=== PATIENT | female | born 1950 | race African-American/Black ===

== ENCOUNTER 2016-03-28 11:02 | Day surgery (SDC) | payer MEDICAID ==
[2016-03-28 11:32] LABS: HEMATOCRIT 35.2 % (36.0-47.0); HEMOGLOBIN 11.3 g/dL (12.0-15.5); HGB HCT DIFFERENCE -1.3; MEAN CORPUSCULAR VOLUME 91 fl (80-97); RED BLOOD COUNT 3.89 10^6/uL (3.72-5.28); RED CELL DISTRIBUTION WIDTH 15.1 % (11.5-14.0); WHITE BLOOD COUNT 9.1 10^3/uL (4.0-10.5)
[2016-03-28 11:38] LABS: PARTIAL THROMBOPLASTIN TIME 29.9 SEC (23.5-35.8); PROTHROMBIN TIME 12.9 SEC (11.4-15.4)
[2016-03-28 11:53] LABS: BLOOD UREA NITROGEN 57 mg/dL (7-20); CALCIUM 9.8 mg/dL (8.4-10.2); CARBON DIOXIDE 23 mmol/L (22-30); CHLORIDE 93 mmol/L (98-107); CREATININE RESULT 9.03 mg/dL (0.52-1.25); GLUCOSE 83 mg/dL (75-110); POTASSIUM 4.9 mmol/L (3.6-5.0); SODIUM 137.1 mmol/L (137-145)
[2016-03-28 11:54] LABS: ANION GAP 21 (5-19)
[2016-03-28] MEDS ORDERED: LIDOCAINE 0.5% INJ-PF (5 MG/ML) 50 ML SDV ONE (12:48)
[2016-03-28] MEDS ORDERED: MIDAZOLAM 2 MG/2 ML INJ ONE (12:58)
[2016-03-28] MEDS ORDERED: FENTANYL CITRATE INJ/PF 100 MCG/2 ML AMPUL ONE (12:58)
[2016-03-28] MEDS ORDERED: HEPARIN SOD (PORCINE) 5,000 UNIT/ML 1 ML SYRINGE ONE (12:58)
--- NOTE | 2016-03-28 15:15 | PDOC DISCHARGE SUMMARY ---
Discharge Summary (SDC) - Discharge Final Diagnosis: #1 malfunctioning AV fistula, left brachial to brachial transposed fistula. #2 end-stage renal disease on hemodialysis. #3 hypertension. Date of Surgery: 03/28/16 Discharge Date: 03/28/16 Condition: Fair Forms: ASU Anesthesia D/C Instruction, Discharge POC-Surgical Service Treatment or Instructions: #1 activities within moderation encouraged. #2 follow up in my office by appointment in about 1 week. Call for appointment. #3 the wounds covered clean and dry until office visit. #4 hold off on school/work until evaluation in office. #5 may shower in 48 hours, keep operated area as dry as possible. #6 discharge from ambulatory when ASU criteria met. #7 medications per medication reconciliation sheet. Referrals: JACQUELINE HESTER MD [ACTIVE STAFF] - 04/06/16 10:15 am Respiratory Treatments at Home: Deep Breathing/Coughing Discharge Activity: Activity As Tolerated, Balance Activity w/Rest, No Driving, No Lifting Over 10 Pounds, Slowly Increase Activity, Walk Frequently Home Care Assistance: None Needed Report the Following to Your Physician Immediately: Shortness of Breath, Nausea , Vomiting, Increase in Pain, Fever over 101 Degrees, Unusual Bleeding, Redness , Swelling, Warmth, Increased Soreness, Drainage-Foul Smelling, Large Clots, Numbness, Tingling Sensation
--- NOTE | 2016-03-28 15:22 | Operative Report ---
Operative Report DATE OF SURGERY: 03/28/16 PREOPERATIVE DIAGNOSIS: #1 malfunctioning AV fistula, left brachial to brachial transposed fistula. #2 end-stage renal disease on hemodialysis. #3 hypertension. POSTOPERATIVE DIAGNOSIS: #1 malfunctioning AV fistula, left brachial to brachial transposed fistula. #2 end-stage renal disease on hemodialysis. #3 hypertension. OPERATION: #1 needle access into arteriovenous fistula. #2 angioplasty. #3 angiogram and interpretation. SURGEON: JACQUELINE ASHRAF CULL GRADER: none ANESTHESIA: Moderate Sedation TISSUE REMOVED OR ALTERED: Not applicable. COMPLICATIONS: None. ESTIMATED BLOOD LOSS: 2 mL. INTRAOPERATIVE FINDINGS: Upper well-founded left arm transposed brachial to brachial fistula. Somewhat firm suggestive of cephalad stenosis. The angiographic findings were consistent with a 90% stenosis at 25 cm from the anastomosis and a half a centimeter long. Apart from that the fistula was quite good with no other focal lesions the caliber satisfactory. The anastomosis appears to be fine on retrograde angiogram into the artery. Complete resolution of the stenosis is noted on completion angiogram. PROCEDURE: PROCEDURE: After verifying the procedure and having obtained informed consent, the patient's left arm was prepared with Chlorhexidine and draped out with sterile linen. Local anesthesia infiltrated. Percutaneous access into the fistula ,[ antegrade], obtained about [4 cm] from the arteriovenous anastomosis using a micro puncture needle followed by micro puncture wire and then a micro puncture catheter. Angiogram demonstrated the aforementioned findings. Angioplasty was elected. A 0.035 [place] wire was inserted, and over this, a 6 Syrian short introducer was placed, this was followed by a [7-mm ] angioplasty balloon . Angioplasty was done at the culprit lesion. Inflating up to 14 atmospheres for 1-2 minutes at a time.]. Completion angiogram demonstrated [satisfactory result]. The instrumentation was now withdrawn over moderate pressure for 10 minutes. Dressings applied, procedure concluded. Exposure time: 0.3 Radiation: 12 [place] per centimeter squared Contrast: 25 mL of Isovue-M 300, low osmolality. DICTATING PHYSICIAN: JACQUELINE HESTER M.D. cc: JACQUELINE HESTER M.D. ([id number]) >>
[2016-03-28 15:47] VITALS: BP 119/59
--- NOTE | 2016-03-28 15:47 | EKG REPORT ---
SEVERITY:- NORMAL ECG - SINUS RHYTHM : Confirmed by: Amaya Duff 28-Mar-2016 15:46:28
== END 2016-03-28 15:45 | disposition home or self-care (01) ==
LOC: CCL 11:02
PROVIDERS: ATTEND Surgery
PROC: 057A3DZ Dilation of Left Brachial Vein with Intraluminal Device, Percutaneous Approach (ICD-10-PCS; principal; 2016-03-28)
DX: T82.858A Stenosis of other vascular prosthetic devices, implants and grafts, initial encounter (principal); Y83.2 Surgical operation with anastomosis, bypass or graft as the cause of abnormal reaction of the patient, or of later complication, without mention of misadventure at the time of the procedure; I12.0 Hypertensive chronic kidney disease with stage 5 chronic kidney disease or end stage renal disease; N18.6 End stage renal disease; Z99.2 Dependence on renal dialysis; D64.9 Anemia, unspecified; J45.909 Unspecified asthma, uncomplicated; Z88.0 Allergy status to penicillin; Z88.6 Allergy status to analgesic agent; Z79.899 Other long term (current) drug therapy
CPT/HCPCS: 36415; 85027; 85610; 85730; 80048; 36902; 71010; 93005; 93010; C1752; C1725; Q9967; C1769; J2250; J1644 ×2; J3010; J3490; 36901

== ENCOUNTER 2016-05-09 09:51 | Day surgery (SDC) | payer BC, MEDICARE, MEDICAID ==
[2016-05-09] MEDS ORDERED: MIDAZOLAM 2 MG/2 ML INJ ONE ×2 (10:18→12:26)
[2016-05-09] MEDS ORDERED: FENTANYL CITRATE INJ/PF 100 MCG/2 ML AMPUL ONE ×2 (10:19→12:26)
[2016-05-09] MEDS ORDERED: HEPARIN SOD (PORCINE) 5,000 UNIT/ML 1 ML SYRINGE ONE ×2 (10:19→12:26)
[2016-05-09 10:35] LABS: ABSOLUTE BASOPHILS # (AUTO) 0.1 10^3/uL (0.0-0.2); ABSOLUTE EOSINOPHILS # (AUTO) 0.3 10^3/uL (0.0-0.6); ABSOLUTE LYMPHOCYTES (AUTO) 1.2 10^3/uL (0.5-4.7); ABSOLUTE MONOCYTES (AUTO) 0.5 10^3/uL (0.1-1.4); ABSOLUTE NEUT (AUTO) 4.7 10^3/uL (1.7-8.2); EOSINOPHILS % (AUTO) 4.1 % (0-6); HEMATOCRIT 31.2 % (36.0-47.0); HEMOGLOBIN 10.3 g/dL (12.0-15.5); HGB HCT DIFFERENCE -0.3; LYMPHOCYTES % (AUTO) 17.4 % (13-45); MEAN CORPUSCULAR HEMOGLOBIN 29.7 pg (27.0-33.4); MEAN CORPUSCULAR VOLUME 90 fl (80-97); MONOCYTES % (AUTO) 7.7 % (3-13); RED BLOOD COUNT 3.46 10^6/uL (3.72-5.28); RED CELL DISTRIBUTION WIDTH 15.8 % (11.5-14.0); SEGMENTED NEUTROPHILS % (AUTO) 69.8 % (42-78); WHITE BLOOD COUNT 6.8 10^3/uL (4.0-10.5)
[2016-05-09 10:58] LABS: ANION GAP 15 (5-19); BLOOD UREA NITROGEN 45 mg/dL (7-20); CALCIUM 10.5 mg/dL (8.4-10.2); CARBON DIOXIDE 23 mmol/L (22-30); CHLORIDE 97 mmol/L (98-107); CREATININE RESULT 8.64 mg/dL (0.52-1.25); GLUCOSE 98 mg/dL (75-110); POTASSIUM 5.6 mmol/L (3.6-5.0); SODIUM 135.4 mmol/L (137-145)
[2016-05-09] MEDS ORDERED: LIDOCAINE 0.5% INJ-PF (5 MG/ML) 50 ML SDV ONE (11:38)
--- NOTE | 2016-05-09 14:21 | PDOC DISCHARGE SUMMARY ---
Discharge Summary (SDC) - Discharge Final Diagnosis: #1 malfunctioning arteriovenous fistula. #2 end-stage renal disease on hemodialysis. #3 hypertension. Date of Surgery: 05/09/16 Discharge Date: 05/09/16 Condition: Good Forms: ASU Anesthesia D/C Instruction, Discharge POC-Surgical Service Treatment or Instructions: Call Dr. Ying office tomorrow, and make a followup visit for 1 week from today. Referrals: JACQUELINE YING MD [ACTIVE STAFF] - Respiratory Treatments at Home: Deep Breathing/Coughing Discharge Activity: Activity As Tolerated Home Care Assistance: None Needed Report the Following to Your Physician Immediately: Shortness of Breath, Nausea , Vomiting, Increase in Pain, Fever over 101 Degrees, Unusual Bleeding, Redness , Swelling, Warmth, Numbness, Tingling Sensation
--- NOTE | 2016-05-09 14:26 | Operative Report ---
Operative Report DATE OF SURGERY: 05/09/16 PREOPERATIVE DIAGNOSIS: #1 malfunctioning arteriovenous fistula. #2 end-stage renal disease on hemodialysis. #3 hypertension. POSTOPERATIVE DIAGNOSIS: #1 malfunctioning arteriovenous fistula. #2 end-stage renal disease on hemodialysis. #3 hypertension. OPERATION: #1 needle access into fistula. #2 angioplasty. #3 angiogram and interpretation. SURGEON: JACQUELINE ASHRAF SENIOR UNDERWRITER: none ANESTHESIA: Moderate Sedation TISSUE REMOVED OR ALTERED: Not applicable. COMPLICATIONS: None ESTIMATED BLOOD LOSS: 2 mL. INTRAOPERATIVE FINDINGS: Of a small, well-founded left transposed basilic vein fistula. A tight culprit stenosis noted at 25 cm.. Representing 90% of the adjacent lumen. Another at about 6 cm representing about 70%. Both of these were eliminated by angioplasty. With no [place] 5% residual stenosis. Also Basurto flow of contrast through the system. No other gross abnormalities. PROCEDURE: PROCEDURE: After verifying the procedure and having obtained informed consent, the patient's left arm was prepared with Chlorhexidine and draped out with sterile linen. Local anesthesia infiltrated. Percutaneous access into the fistula ,[ antegrade], obtained about [2 cm] from the arteriovenous anastomosis using a 18-gauge needle A 0.035 [place] wire was inserted, and over this, a 6 Yoruba short introducer was placed, this was followed by a [7-mm ] angioplasty balloon . Angioplasty was serially done from the upper fistula down to the introducer. Inflating up to 18 atmospheres for a minute at a time.]. Completion angiogram demonstrated [satisfactory result]. The instrumentation was now withdrawn over a short piece of catheter and a 5-0 Prolene suture. Dressings applied, procedure concluded. Exposure time: 0.2 minutes Radiation: 11 lacho per centimeter squared Contrast: 25 mm liters of Isovue-M 300, low osmolality. DICTATING PHYSICIAN: JACQUELINE HESTER M.D. cc: JACQUELINE HESTER M.D. ([id number]) >>
[2016-05-09 14:31] VITALS: BP 107/76
--- NOTE | 2016-05-09 14:36 | PDOC H&P ---
General Chief Complaint: The patient is referred in for evaluation and treatment of her arteriovenous fistula which is exhibited excessive pressure. - Current Medications/Allergies Home Medications: Albuterol Sulfate [Proair HFA Inhalation Aerosol 8.5 gm MDI] 1 puff IH Q4 PRN Metoprolol Tartrate 100 mg PO BID 10/21/14 Hydralazine HCl 100 mg PO TID 02/07/15 Clonidine HCl 0.2 mg PO TID 07/30/15 Nifedipine [Procardia XL 30 mg Tablet] 30 mg PO Q12 07/30/15 Fluticasone/Salmeterol [Advair 250-50 Diskus 28 dose] 1 inh IH DAILY 03/28/16 Prednisone 5 mg PO DAILY 03/28/16 Allergies/Adverse Reactions: pseudoephedrine HCl [From Sudafed] Allergy (Intermediate, Verified 10/09/15 09: 21) Tongue Swelling aspirin [Aspirin] Allergy (Verified 10/09/15 09:21) Penicillins Allergy (Verified 10/09/15 09:21) KI Inhibitors [Ki Inhibitors] Adverse Reaction (Intermediate, Verified 09:21) Angioedema Past Medical History Cardiac Medical History: Reports: Hypertension Denies: Congestive Heart Failure, Coronary Artery Disease, Myocardial Infarction Pulmonary Medical History: Reports: Asthma, Bronchitis, Chronic Obstructive Pulmonary Disease (COPD) Denies: Pneumonia, Tuberculosis Neurological Medical History: Denies: Seizures Renal/ Medical History: Reports: End Stage Renal Disease GI Medical History: Denies: Cirrhosis, Gastroesophageal Reflux Disease, Hepatitis, Hiatal Hernia Musculoskeltal Medical History: Reports: Arthritis Psychiatric Medical History: Denies: Bipolar Disorder, Depression Hematology: Reports: Anemia Denies: Sickle Cell Disease, Bleeding Tendencies Past Surgical History Past Surgical History: Reports: Hysterectomy, Other - PermCath insertion. First stage left transposed brachial vein fistula. Denies: Amputation, Mastectomy, Pacemaker Family History Family History: Reviewed & Not Pertinent Parental Family History Reviewed: No Children Family History Reviewed: No Sibling(s) Family History Reviewed.: No Social History Smoking Status: Unknown if Ever Smoked Frequency of Alcohol Use: None Hx Recreational Drug Use: No Drugs: None Hx Prescription Drug Abuse: No Physical Exam Vital Signs: Temp Pulse Resp BP Pulse Ox 97.7 F 67 16 104/49 L 100 05/09/16 13:30 05/09/16 13:45 05/09/16 13:45 05/09/16 13:45 05/09/16 13:45 Intake & Output 05/08/16 05/09/16 05/10/16 06:59 06:59 06:59 Weight 69.4 kg Additional comments: A well-developed well-nourished -[place] female. Normal body habitus. No acute distress. Eyes membranes is pink and moist, sclerae anicteric. Respiratory no shortness of breath. Breath sounds are normal and equal bilaterally. Cardiac: Heart sounds 1 and 2 heard, no murmurs. Upper extremities show normal range of movement and pulsatile to the radials. Normal capillary refill. A transposed basilic to brachial fistula is appreciated. In the left upper extremity. Somewhat firm, suggesting cephalad stenosis. Psychiatric the patient is alert, oriented, judgment, memory, insight normal Impression/Plan Impression: #1 malfunctioning arteriovenous fistula. #2 end-stage renal disease on hemodialysis. #3 hypertension. Plan: Angiogram and possible angioplasty is recommended. The plan is to do function and thus longevity.
== END 2016-05-09 14:45 | disposition home or self-care (01) ==
LOC: CCL 09:51
PROVIDERS: ATTEND Surgery
PROC: 057C3DZ Dilation of Left Basilic Vein with Intraluminal Device, Percutaneous Approach (ICD-10-PCS; principal; 2016-05-09)
DX: T82.858A Stenosis of other vascular prosthetic devices, implants and grafts, initial encounter (principal); Y83.2 Surgical operation with anastomosis, bypass or graft as the cause of abnormal reaction of the patient, or of later complication, without mention of misadventure at the time of the procedure; D63.1 Anemia in chronic kidney disease; I12.0 Hypertensive chronic kidney disease with stage 5 chronic kidney disease or end stage renal disease; N18.6 End stage renal disease; Z99.2 Dependence on renal dialysis; J45.909 Unspecified asthma, uncomplicated; J44.9 Chronic obstructive pulmonary disease, unspecified; Z79.51 Long term (current) use of inhaled steroids; Z79.899 Other long term (current) drug therapy; Z79.82 Long term (current) use of aspirin; Z87.891 Personal history of nicotine dependence
CPT/HCPCS: 36415; 85025; 80048; 36902; C1752; C1725; Q9967; C1769; J2250; J1644 ×2; J3010; J3490

== ENCOUNTER 2016-06-30 14:50 | Day surgery (SDC) | payer BC, MEDICARE, MEDICAID ==
[2016-06-30 15:40] LABS: HEMATOCRIT 33.1 % (36.0-47.0); HEMOGLOBIN 11.2 g/dL (12.0-15.5); HGB HCT DIFFERENCE 0.5; MEAN CORPUSCULAR HEMOGLOBIN 31.5 pg (27.0-33.4); MEAN CORPUSCULAR HGB CONC 33.9 g/dL (32.0-36.0); MEAN CORPUSCULAR VOLUME 93 fl (80-97); RED BLOOD COUNT 3.56 10^6/uL (3.72-5.28); RED CELL DISTRIBUTION WIDTH 15.9 % (11.5-14.0); WHITE BLOOD COUNT 6.4 10^3/uL (4.0-10.5)
[2016-06-30 15:54] LABS: POTASSIUM 4.5 mmol/L (3.6-5.0)
[2016-06-30 15:55] LABS: ANION GAP 15 (5-19); BLOOD UREA NITROGEN 22 mg/dL (7-20); CALCIUM 9.3 mg/dL (8.4-10.2); CARBON DIOXIDE 25 mmol/L (22-30); CHLORIDE 97 mmol/L (98-107); CREATININE RESULT 5.82 mg/dL (0.52-1.25); GLUCOSE 88 mg/dL (75-110); SODIUM 137.1 mmol/L (137-145)
[2016-06-30] MEDS ORDERED: KETAMINE HCL INJ 500 MG/10 ML VIAL ONE (16:27)
[2016-06-30] MEDS ORDERED: FENTANYL CITRATE INJ/PF 100 MCG/2 ML AMPUL ONE (16:27)
[2016-06-30] MEDS ORDERED: MIDAZOLAM 2 MG/2 ML INJ ONE ×2 (16:27→16:28)
[2016-06-30] MEDS ORDERED: PROPOFOL INJ 200 MG/20 ML VIAL IV ONE (16:28)
[2016-06-30] MEDS ORDERED: LIDOCAINE 0.5% INJ-PF (5 MG/ML) 50 ML SDV ONE (16:35)
[2016-06-30] MEDS ORDERED: BUPIVACAINE HCL 0.25 % INJ/PF (2.5 MG/1 ML) 30 ML VIAL ONE (16:35)
[2016-06-30] MEDS ORDERED: HEPARIN SOD (PORCINE) 1,000 UNIT/ML 10 ML VIAL ONE (16:35)
--- NOTE | 2016-06-30 17:53 | PDOC DISCHARGE SUMMARY ---
Discharge Summary (SDC) - Discharge Final Diagnosis: #1 malfunctioning arteriovenous fistula, left transposed basilic vein. #2 end-stage renal disease on hemodialysis. #3 hypertension. Date of Surgery: 06/30/16 Discharge Date: 06/30/16 Condition: Good Treatment or Instructions: #1 activities within moderation encouraged. #2 follow up in my office by appointment in about 1 month. Call for appointment. #3 the wounds covered clean and dry until hemodialysis. #4 hold off on school/work until evaluation in office. #5 may shower in 48 hours,. #6 discharge from ambulatory when ASU criteria met. #7 medications per medication reconciliation sheet. Discharge Diet: Other (Comments) - Renal Respiratory Treatments at Home: Deep Breathing/Coughing Discharge Activity: Activity As Tolerated Report the Following to Your Physician Immediately: Shortness of Breath, Unusual Bleeding
--- NOTE | 2016-06-30 17:56 | Operative Report ---
Operative Report DATE OF SURGERY: 06/30/16 PREOPERATIVE DIAGNOSIS: #1 malfunctioning arteriovenous fistula, left basilic transpose. #2 end-stage renal disease on hemodialysis. #3 hypertension. POSTOPERATIVE DIAGNOSIS: #1 malfunctioning arteriovenous fistula, left basilic transposed. Post angioplasty. #2 end-stage renal disease on hemodialysis. #3 hypertension. OPERATION: #1 needle entry into fistula. #2 balloon angioplasty and fistula. #3 angiogram and interpretation. SURGEON: JACQUELINE ASHRAF FORENSIC PSYCHIATRIST: none ANESTHESIA: LMAC TISSUE REMOVED OR ALTERED: Not applicable COMPLICATIONS: None ESTIMATED BLOOD LOSS: 5 mL. INTRAOPERATIVE FINDINGS: Of a localized area of stenosis about 90% of the adjacent lumen situated at about 22 cm. Fully eradicated. 0% remaining stenosis. The fistula initially hyper pulsatile was much appropriate is softer with a good continuous bruit at the end of the procedure. PROCEDURE: PROCEDURE: After verifying the procedure and having obtained informed consent, the patient's left arm was prepared with Chlorhexidine and draped out with sterile linen. Local anesthesia infiltrated. Percutaneous access into the fistula ,[ antegrade], obtained about [6 cm] from the arteriovenous anastomosis using a micro puncture needle followed by micro puncture wire and then a micro puncture catheter. Angiogram demonstrated the aforementioned findings. Angioplasty was elected. A 0.035 [place] wire was inserted, and over this, a 6 Vincentian short introducer was placed, this was followed by a [7-mm ] angioplasty balloon . Angioplasty was At the culprit area inflating with a 3 mL syringe. Estimated up to up to 18 atmospheres for a minute at a time.]. Completion angiogram demonstrated [satisfactory result]. The instrumentation was now withdrawn over a hand-held pressure for 10 minutes.. Dressings applied , procedure concluded. DICTATING PHYSICIAN: JACQUELINE HESTER M.D. cc: JACQUELINE HESTER M.D. ([id number]) >>
[2016-06-30] MEDS ORDERED: MORPHINE SULFATE 10 MG/ML INJ IV PRN (18:07)
[2016-06-30] MEDS ORDERED: DIPHENHYDRAMINE HCL 50 MG/ML VIAL IV PRN (18:07)
[2016-06-30] MEDS ORDERED: OXYCODONE-ACETAMINOPHEN 5-325 MG TABLET PO PRN ×2 (18:07)
[2016-06-30] MEDS ORDERED: MEPERIDINE HCL/PF INJ 25 MG/1 ML DISP.SYRIN IV PRN (18:07)
[2016-06-30] MEDS ORDERED: FENTANYL CITRATE INJ/PF 100 MCG/2 ML AMPUL IV PRN ×3 (18:07)
[2016-06-30] MEDS ORDERED: PROMETHAZINE HCL INJ 25 MG/1 ML VIAL IV PRN ×2 (18:07)
[2016-06-30 19:28] VITALS: BP 156/79
--- NOTE | 2016-07-01 09:34 | EKG REPORT ---
SEVERITY:- OTHERWISE NORMAL ECG - SINUS RHYTHM ATRIAL PREMATURE COMPLEX : Confirmed by: Amaya Duff 01-Jul-2016 09:33:53
== END 2016-06-30 19:27 | disposition home or self-care (01) ==
LOC: OROUT 14:50
PROVIDERS: ATTEND Surgery
PROC: 057C3DZ Dilation of Left Basilic Vein with Intraluminal Device, Percutaneous Approach (ICD-10-PCS; principal; 2016-06-30 17:00)
DX: T82.858A Stenosis of other vascular prosthetic devices, implants and grafts, initial encounter (principal); Y83.2 Surgical operation with anastomosis, bypass or graft as the cause of abnormal reaction of the patient, or of later complication, without mention of misadventure at the time of the procedure; I12.0 Hypertensive chronic kidney disease with stage 5 chronic kidney disease or end stage renal disease; N18.6 End stage renal disease; Z99.2 Dependence on renal dialysis; J45.909 Unspecified asthma, uncomplicated; D64.9 Anemia, unspecified; Z88.0 Allergy status to penicillin; Z88.6 Allergy status to analgesic agent; Z79.899 Other long term (current) drug therapy
CPT/HCPCS: 36415; 85027; 80048; 73060; 93005; 93010; 36902; C1752; C1725; Q9967; C1769; J2250; J1644 ×2; J3490 ×2; J2704; 01844; J3010

== ENCOUNTER 2016-08-22 07:45 | Day surgery (SDC) | payer BC, MEDICARE, MEDICAID ==
[2016-08-22 08:12] LABS: HEMATOCRIT 32.7 % (36.0-47.0); HEMOGLOBIN 10.7 g/dL (12.0-15.5); HGB HCT DIFFERENCE -0.6; MEAN CORPUSCULAR HEMOGLOBIN 29.3 pg (27.0-33.4); MEAN CORPUSCULAR HGB CONC 32.8 g/dL (32.0-36.0); MEAN CORPUSCULAR VOLUME 89 fl (80-97); RED BLOOD COUNT 3.66 10^6/uL (3.72-5.28); RED CELL DISTRIBUTION WIDTH 13.7 % (11.5-14.0); WHITE BLOOD COUNT 6.5 10^3/uL (4.0-10.5)
[2016-08-22 08:31] LABS: ANION GAP 17 (5-19); BLOOD UREA NITROGEN 49 mg/dL (7-20); CALCIUM 9.8 mg/dL (8.4-10.2); CARBON DIOXIDE 19 mmol/L (22-30); CHLORIDE 93 mmol/L (98-107); CREATININE RESULT 8.27 mg/dL (0.52-1.25); GLUCOSE 93 mg/dL (75-110); POTASSIUM 4.8 mmol/L (3.6-5.0); SODIUM 129.3 mmol/L (137-145)
[2016-08-22] MEDS ORDERED: HEPARIN SOD (PORCINE) 5,000 UNIT/ML 1 ML SYRINGE ONE (09:19)
[2016-08-22] MEDS ORDERED: FENTANYL CITRATE INJ/PF 100 MCG/2 ML AMPUL ONE (09:19)
[2016-08-22] MEDS ORDERED: MIDAZOLAM 2 MG/2 ML INJ ONE (09:19)
--- NOTE | 2016-08-22 09:28 | PDOC H&P ---
General Chief Complaint: Malfunction of arteriovenous detected on hemodialysis, higher than expected pressures. - Diagnosis (1) Dialysis AV fistula malfunction Is this a Current Diagnosis?: Yes (2) End stage renal disease on dialysis Is this a Current Diagnosis?: Yes (3) Hypertension Is this a Current Diagnosis?: Yes - Current Medications/Allergies Home Medications: Albuterol Sulfate [Proair HFA Inhalation Aerosol 8.5 gm MDI] 1 puff IH Q4 PRN Metoprolol Tartrate 100 mg PO BID 10/21/14 Hydralazine HCl 100 mg PO TID 02/07/15 Clonidine HCl 0.2 mg PO TID 07/30/15 Nifedipine [Procardia XL 30 mg Tablet] 30 mg PO Q12 07/30/15 Fluticasone/Salmeterol [Advair 250-50 Diskus 28 dose] 1 inh IH DAILY 03/28/16 Allergies/Adverse Reactions: pseudoephedrine HCl [From Sudafed] Allergy (Intermediate, Verified 10/09/15 09: 21) Tongue Swelling aspirin [Aspirin] Allergy (Verified 10/09/15 09:21) Penicillins Allergy (Verified 10/09/15 09:21) KI Inhibitors [Ki Inhibitors] Adverse Reaction (Intermediate, Verified 09:21) Angioedema Past Medical History Cardiac Medical History: Reports: Hypertension Denies: Congestive Heart Failure, Coronary Artery Disease, Myocardial Infarction Pulmonary Medical History: Reports: Asthma, Bronchitis, Chronic Obstructive Pulmonary Disease (COPD) Denies: Pneumonia, Tuberculosis Neurological Medical History: Denies: Seizures Renal/ Medical History: Reports: End Stage Renal Disease GI Medical History: Denies: Cirrhosis, Gastroesophageal Reflux Disease, Hepatitis, Hiatal Hernia Musculoskeltal Medical History: Reports: Arthritis Psychiatric Medical History: Denies: Bipolar Disorder, Depression Hematology: Reports: Anemia Denies: Sickle Cell Disease, Bleeding Tendencies Past Surgical History Past Surgical History: Reports: Hysterectomy, Other - PermCath insertion. First stage left transposed brachial vein fistula. Denies: Amputation, Mastectomy, Pacemaker Family History Family History: Reviewed & Not Pertinent Parental Family History Reviewed: No Children Family History Reviewed: No Sibling(s) Family History Reviewed.: No Social History Smoking Status: Never Smoker Frequency of Alcohol Use: None Hx Recreational Drug Use: No Drugs: None Hx Prescription Drug Abuse: No Physical Exam Additional comments: Constitutional: Well-developed well-nourished -[place] lady. No apparent acute distress. Eyes: Mucous membranes pink and moist, pupils equal and reactive to light. Conjunctiva normal. Cornea normal. Wears spectacles ENT: Hearing grossly normal. External pinna normal to inspection. Teeth intact. Tongue normal to inspection. Cardiac: Heart sounds 1 and 2 normal, no murmurs. Respiratory breath sounds are present bilaterally, normal. Normal respiratory effort. Psychiatric: Judgment, memory, insight seem normal. Mood is pleasant and appropriate. Extremities: Upper extremities show normal range of movement. Pulses present noted to the radial arteries. Capillary refill normal. No cyanosis noted. No muscle wasting noted. Left arm transposed brachial vein fistula in the arm, firm, suggesting stenosis. . Impression/Plan Impression: #1 malfunctioning arteriovenous fistula left arm. 2. End-stage renal disease on hemodialysis. 3. Hypertension Plan: Angiogram and possibly angioplasty recommended. The object is to prolong the useful function of this kinsey fistula. This patient has very poor veins generally.
[2016-08-22] MEDS ORDERED: LIDOCAINE 0.5% INJ-PF (5 MG/ML) 50 ML SDV ONE (09:32)
--- NOTE | 2016-08-22 11:10 | PDOC DISCHARGE SUMMARY ---
Discharge Summary (SDC) - Discharge Final Diagnosis: #1 malfunctioning arteriovenous fistula, left transposed brachial vein. 2. End-stage renal disease on hemodialysis. 3. Hypertension. Date of Surgery: 08/22/16 Discharge Date: 08/22/16 Condition: Good Treatment or Instructions: Discharge home [after recovery per ASU criteria]. Diet , [renal],as tolerated, when fully awake advance as tolerated. Activities within moderation encouraged. Follow up in my office by appointment in about [1 month]. Call for appointment. Leave wounds [covered], removing in hemodialysis. Hold of on school/work [until evaluation in office]. May shower [in 48 hrs], [try to keep operated area as dry as possible]. Respiratory Treatments at Home: Deep Breathing/Coughing Discharge Activity: Activity As Tolerated Home Care Assistance: None Needed Report the Following to Your Physician Immediately: Shortness of Breath, Increase in Pain, Fever over 101 Degrees, Unusual Bleeding, Redness, Swelling, Warmth, Increased Soreness, IV Site Infection Signs
--- NOTE | 2016-08-22 11:15 | Operative Report ---
Operative Report DATE OF SURGERY: 08/22/16 PREOPERATIVE DIAGNOSIS: #1 malfunctioning arteriovenous fistula, left transposed brachial vein. 2. End-stage renal disease on hemodialysis. 3. Hypertension POSTOPERATIVE DIAGNOSIS: #1 malfunctioning arteriovenous fistula, left transposed brachial vein. Angioplasty. 2. End-stage renal disease on hemodialysis. 3. Hypertension OPERATION: 1. Needle active arteriovenous fistula. 2. Angioplasty. 3. Angiogram interpretation. SURGEON: JACQUELINE ASHRAF RN INTEGRITY: None ANESTHESIA: Moderate Sedation TISSUE REMOVED OR ALTERED: Not applicable. COMPLICATIONS: None ESTIMATED BLOOD LOSS: 5 mL INTRAOPERATIVE FINDINGS: Of a well founded left arm transposed brachial fistula. A very tight stenosis about 90% of the adjacent lumen in about 3 mm long appreciated at 25 cm. The swing segment of the fistula. Cephalad was marked narrowing secondary to low fracture. Additionally was a high pressure hyper pulse pulse in the body of the fistula. Post angioplasty there was resolution of the stenosis wall extravasation. The fistula was appropriately softer. PROCEDURE: PROCEDURE: After verifying the procedure and having obtained informed consent, the patient's left arm was prepared with Chlorhexidine and draped out with sterile linen. Local anesthesia infiltrated. Percutaneous access into the fistula ,[ antegrade], obtained about [4 cm] from the arteriovenous anastomosis using a 18-gauge needle. A 0.035 [place] wire was inserted, and over this, a 7 Malay short introducer was placed, angiogram demonstrated the above. This was followed by a [6-mm] angioplasty balloon . Angioplasty was Done using a 3 mils syringe and hand injection for 2 minutes. Completion angiogram demonstrated much improvement. The stenotic segment seemed very soft. As a result of a 8 mm balloon with no lobe of the culprit lesion. It was inflated using a 3 mils syringe for 2 minutes. A waist was noted which was eliminated. Completion angiogram demonstrated [satisfactory result]. The instrumentation was now withdrawn over to pressure for 10 minutes. Dressings applied, procedure concluded. Exposure time: 2 minutes. Radiation: 8.5 mcg/cm Contrast: 25 mm of Isovue-300, low osmolality. DICTATING PHYSICIAN: JACQUELINE HESTER M.D. cc: JACQUELINE HESTER M.D. ([id number]) >>
--- NOTE | 2016-08-22 11:49 | RADIOLOGY REPORT (SQ) ---
EXAM DESCRIPTION: FISTULAGRAM W/PLASTY COMPLETED DATE/TIME: 08/22/2016 11:18 am REASON FOR STUDY: T82.858A T82.858A STENOSIS OF OTHER VASCULAR PROSTH DEV/GRFT, INIT COMPARISON: None. FLUOROSCOPY TIME: Total fluoroscopy time was 0.8 minutes. 13 images saved to PACS. TECHNIQUE: Intra-operative images acquired during surgical procedure to evaluate progress. NUMBER OF IMAGES: 13 LIMITATIONS: None. FINDINGS: Fluoroscopy was provided for intraoperative procedure. Please refer to the operative repo rt for further discussion. IMPRESSION: IMAGE(S) OBTAINED DURING PROCEDURE. COMMENT: Quality ID [id number]: Final reports for procedures using fluoroscopy that document radiation exp osure indices, or exposure time and number of fluorographic images (if radiation exposure indices are not available) Please consult full operative report of the attending physician for description of the procedure. TECHNICAL DOCUMENTATION: JOB ID: [id number] [employer]- All Rights Reserved
[2016-08-22 13:53] VITALS: BP 159/77
== END 2016-08-22 11:55 | disposition home or self-care (01) ==
LOC: CCL 07:45
PROVIDERS: ATTEND Surgery
PROC: 057A3DZ Dilation of Left Brachial Vein with Intraluminal Device, Percutaneous Approach (ICD-10-PCS; principal; 2016-08-22)
DX: T82.858A Stenosis of other vascular prosthetic devices, implants and grafts, initial encounter (principal); Y83.2 Surgical operation with anastomosis, bypass or graft as the cause of abnormal reaction of the patient, or of later complication, without mention of misadventure at the time of the procedure; I12.0 Hypertensive chronic kidney disease with stage 5 chronic kidney disease or end stage renal disease; N18.6 End stage renal disease; Z99.2 Dependence on renal dialysis; Z79.51 Long term (current) use of inhaled steroids; Z79.899 Other long term (current) drug therapy; Z88.8 Allergy status to other drugs, medicaments and biological substances; Z88.0 Allergy status to penicillin; Z88.6 Allergy status to analgesic agent; J44.9 Chronic obstructive pulmonary disease, unspecified; M19.90 Unspecified osteoarthritis, unspecified site
CPT/HCPCS: 36415; 85027; 80048; 36902; C1725 ×2; C1752; C1894; Q9967; C1769; J2250; J1644 ×2; J3010; J3490

== ENCOUNTER 2017-06-13 08:01 | Day surgery (SDC) | payer MEDICARE, MEDICAID ==
[~2017-06-13 08:01] MED LIST: BUPIVACAINE HCL 0.75% INJ/PF (7.5 MG/1 ML) 10 ML SDV OD PRN; KETOROLAC TROMETHAMINE 0.45% 4 DROP/0.4 ML DROPERETTE OD PRN; LIDOCAINE 4% INJ/PF (40 MG/ML) 5 ML AMPUL OD PRN
[2017-06-13] MEDS ORDERED: EPINEPHRINE INJ/PF 1 MG/1 ML AMPULE ONE (08:22)
[2017-06-13] MEDS ORDERED: CHONDR SU A NA/HYALUR INTRAOC KIT (SURGICARE) ONE (08:22)
[2017-06-13] MEDS ORDERED: LIDOCAINE 1% INJ-PF (10 MG/ML) 30 ML SDV ONE (08:22)
[2017-06-13] MEDS: BESIFLOXACIN HCL 0.6% OPH SUSP 5 ML BOTTLE OD PRN ×3 (08:47→09:38)
[2017-06-13] MEDS: TETRACAINE HCL 0.5% OPH SOLN 0.6 ML DROPERETTE OD PRN ×2 (08:47→09:11)
[2017-06-13] MEDS: TROPICAMIDE 1% OPH SOLN 3 ML OD PRN ×3 (08:47→09:05)
[2017-06-13] MEDS: CYCLOPENTOLATE 0.2%/PHENYLEPHRINE 1% OPH SOLN 2 ML OD PRN ×3 (08:47→09:05)
[2017-06-13] MEDS ORDERED: MIDAZOLAM 2 MG/2 ML INJ ONE (08:59)
--- NOTE | 2017-06-13 09:50 | [facility] DISCHARGE SUMMARY E ---
[facility] Discharge Summary NAME: JUANJOSE DURAN AGE: 67Y ADMITTED: 06/13/2017 DISCHARGED: 06/13/2017 FINAL DIAGNOSIS: Cataract, right eye. HOSPITAL COURSE: The patient is a 67-year-old lady who underwent uneventful cataract extraction with intraocular lens implant, right eye, on 06/13/2017. She will be discharged to home. She was instructed to resume preoperative medications, to take Tylenol as needed for discomfort, to keep her eye shielded, to use Besivance, Durezol and Ilevro at 3 p.m. and 8 p.m., and to follow up in my office in 1 day. DICTATING PHYSICIAN: ROBERT PENA M.D. [id number] PHY#: [id number] ID: [id number] JOB#: [id number] ACCT: [id number] cc:ROBERT PENA M.D. >
--- NOTE | 2017-06-13 09:50 | [facility] OPERATIVE REPORT E ---
[facility] Operative Report NAME: JUANJOSE DURAN AGE: 67Y DATE OF SURGERY: 06/13/2017 ROOM: PREOPERATIVE DIAGNOSIS: Cataract, right eye. POSTOPERATIVE DIAGNOSIS: Cataract, right eye. PROCEDURE PERFORMED: Phacoemulsification with posterior chamber intraocular lens, right eye. SURGEON: ROBERT PENA M.D. ANESTHESIA: Topical with MAC. INDICATIONS FOR SURGERY: Patient is having difficulty driving at night. PROCEDURE: The patient was brought to the Operating Room and placed on the operative table. Following tetracaine drops, topical anesthesia was administered. This consisted of instrument wipe pledgets soaked in a solution of 4% Xylocaine mixed with 0.75% Marcaine in a 1:2 ratio. A 2 x 1 cm pledget was placed in the superior fornix. A 1 x 1 cm pledget was placed in the inferior fornix. The eye was patched shut for 5 minutes. The patch was removed. The eye was sterilely prepped and draped in the usual manner. Lid speculum was placed in the eye. The pledgets were removed and 4-0 black silk sutures were placed around the superior and the inferior rectus muscles to be used as traction. A conjunctival peritomy was made at the 10 o'clock position. Hemostasis was obtained with bipolar cautery. A posterior limbal groove was created using a crescent knife and dissected anteriorly towards the cornea. A sharp point blade was used to create a paracentesis site at the 2 o'clock position. A 2.4 mm keratome was used to enter the anterior chamber through the groove. Viscoelastic was injected into the anterior chamber. An anterior capsulotomy was performed using Utrata forceps in a capsulorrhexis fashion. Hydrodissection and hydrodelineation were performed. Phacoemulsification was performed in [id number]-[id number]-[id number] technique. Total phaco time was 5.10 CDE. Following this, the I/A unit was used to remove residual cortex. Viscoelastic was injected into the capsular bag. Intraocular lens model [id number], 17.5 diopters, serial number [id number], was placed in the capsular bag. The I/A unit was used to remove residual viscoelastic. The wound was seen to be watertight under high and low pressure, and no sutures were placed. The intraocular lens was well centered. The pressure was adjusted in the eye to normal pressure. The 4-0 black silk sutures and lid speculum were removed. The eye was shielded after Besivance drops were placed. The patient tolerated the procedure well and was sent to the Recovery Room in good condition. DICTATING PHYSICIAN: ROBERT PENA M.D. [id number] PHY#: [id number] ID: [id number] JOB#: [id number] ACCT: [id number] cc:ROBERT PENA M.D. >
== END 2017-06-13 10:23 | disposition home or self-care (01) ==
LOC: SC 08:01
PROVIDERS: ATTEND Ophthalmology
PROC: 08RK3JZ Replacement of Left Lens with Synthetic Substitute, Percutaneous Approach (ICD-10-PCS; principal; 2017-06-13 09:30)
DX: H25.811 Combined forms of age-related cataract, right eye (principal); Z96.1 Presence of intraocular lens; I12.9 Hypertensive chronic kidney disease with stage 1 through stage 4 chronic kidney disease, or unspecified chronic kidney disease; N18.9 Chronic kidney disease, unspecified; M10.9 Gout, unspecified; D64.9 Anemia, unspecified; Z87.891 Personal history of nicotine dependence; Z88.0 Allergy status to penicillin; Z88.2 Allergy status to sulfonamides; Z99.2 Dependence on renal dialysis; J44.9 Chronic obstructive pulmonary disease, unspecified; Z79.51 Long term (current) use of inhaled steroids; Z79.82 Long term (current) use of aspirin
CPT/HCPCS: 66984; V2632; J2250; J3490 ×4; A9270; J0171; 142

== ENCOUNTER 2017-11-11 09:07 | Emergency (ER) | payer MEDICARE, MEDICAID ==
--- NOTE | 2017-11-11 09:52 | ER Document Report ---
ED General - General Chief Complaint: Blood Pressure Problem Stated Complaint: BLOOD PRESSURE PROBLEM Time Seen by Provider: 11/11/17 09:27 Mode of Arrival: Ambulatory Information source: Patient, [facility] Records Notes: 67-year-old female with hypertension, COPD, end-stage renal disease on dialysis( Monday, , Monday) presents with concern for elevated blood pressure readings over the last 3 days. Patient states that she has been recently taking a new epmh-dhc-bwleyip medication for back pain and since that time has had elevated blood pressure readings. Patient currently takes nifedipine 30 mg daily for her blood pressure but has not taking her blood pressure medication in 2 days. Patient denies any headache, visual changes, slurred speech, difficulty ambulating, chest pain, shortness of breath. She states repeatedly "I feel fine". Patient reports recent treatment for sinusitis with levofloxacin. She took this for 2 weeks and completed this a few days ago. TRAVEL OUTSIDE OF THE [place] IN LAST 30 DAYS: No - HPI Onset: Other Onset/Duration: Gradual Quality of pain: No pain Severity: None Associated symptoms: denies: Chest pain, Headache, Nausea, Vomiting, Shortness of breath Exacerbated by: Denies Relieved by: Denies Similar symptoms previously: Yes Recently seen / treated by doctor: Yes - Related Data Allergies/Adverse Reactions: pseudoephedrine HCl [From Sudafed] Allergy (Intermediate, Verified 11/11/17 09: 11) Tongue Swelling aspirin [Aspirin] Allergy (Verified 11/11/17 09:11) Penicillins Allergy (Verified 11/11/17 09:11) KI Inhibitors [Ki Inhibitors] Adverse Reaction (Intermediate, Verified 09:11) Angioedema Past Medical History - General Information source: Patient - Social History Smoking Status: Never Smoker Frequency of alcohol use: None Drug Abuse: None Lives with: Family Family History: Reviewed & Not Pertinent Patient has suicidal ideation: No Patient has homicidal ideation: No - Past Medical History Cardiac Medical History: Reports: Hx Hypertension Denies: Hx Congestive Heart Failure, Hx Coronary Artery Disease, Hx Heart Attack Pulmonary Medical History: Reports: Hx Asthma, Hx Bronchitis, Hx COPD Denies: Hx Pneumonia, Hx Tuberculosis Neurological Medical History: Denies: Hx Cerebrovascular Accident, Hx Seizures Renal/ Medical History: Reports: Hx End Stage Renal Disease, Hx Renal Insufficiency. Denies: Hx Kidney Stones, Hx Peritoneal Dialysis - hemo T GI Medical History: Denies: Hx Cirrhosis, Hx Gastroesophageal Reflux Disease, Hx Hepatitis, Hx Hiatal Hernia, Hx Ulcer Musculoskeletal Medical History: Reports Hx Arthritis, Denies Hx Multiple Sclerosis Psychiatric Medical History: Denies: Hx Bipolar Disorder, Hx Depression, Hx Schizophrenia Infectious Medical History: Denies: Hx Hepatitis Past Surgical History: Reports: Hx Hysterectomy, Other - PermCath insertion. First stage left transposed brachial vein fistula.. Denies: Hx Mastectomy, Hx Open Heart Surgery, Hx Pacemaker - Immunizations Immunizations up to date: Yes Hx Diphtheria, Pertussis, Tetanus Vaccination: Yes Review of Systems - Review of Systems Notes: REVIEW OF SYSTEMS: CONSTITUTIONAL : Denies fever, chills, or sweats. Denies recent illness. Denies weight loss, recent hospitalizations. EENT: Denies visual changes, eye pain. Denies sore throat, oral lesions, difficulty swallowing. CARDIOVASCULAR: Denies chest pain. Denies palpitations. Denies lower extremity edema. RESPIRATORY: Denies cough. Denies shortness of breath, wheezing. GASTROINTESTINAL: Denies abdominal pain or distention. Denies nausea, vomiting , or diarrhea. Denies blood in vomitus, stools, or per rectum. Denies black, tarry stools. Denies constipation. GENITOURINARY: Denies difficulty urinating, painful urination, frequency, blood in urine, or vaginal discharge. MUSCULOSKELETAL: Denies back or neck pain or stiffness. Denies joint pain or swelling. SKIN: Denies rash, lesions or sores. HEMATOLOGIC : Denies easy bruising or bleeding. LYMPHATIC: Denies swollen glands. NEUROLOGICAL: Denies confusion or altered mental status. Denies loss of consciousness. Denies dizziness or lightheadedness. Denies headache. Denies weakness or paralysis. Denies problems difficulty with ambulation, slurred speech. Denies sensory loss, numbness, or tingling. Denies seizures. PSYCHIATRIC: Denies anxiety or stress. Denies depression, suicidal ideation, or homicidal ideation. Denies visual or auditory hallucinations. Physical Exam - Vital signs Vitals: Pulse Resp BP Pulse Ox 75 16 214/87 H 98 11/11/17 09:13 11/11/17 09:13 11/11/17 09:13 11/11/17 09:13 Interpretation: Hypertensive - Notes Notes: PHYSICAL EXAMINATION: GENERAL: Well-appearing, well-nourished and in no acute distress. HEAD: Atraumatic, normocephalic. EYES: Pupils equal round and reactive to light, extraocular movements intact, conjunctiva are normal. ENT: Nares patent, oropharynx clear without exudates. Moist mucous membranes. NECK: Normal range of motion, supple without lymphadenopathy LUNGS: Breath sounds clear to auscultation bilaterally and equal. No wheezes rales or rhonchi. HEART: Regular rate and rhythm without murmurs ABDOMEN: Soft, nontender, nondistended abdomen. No guarding, no rebound. No masses appreciated. Female : deferred Musculoskeletal: Normal range of motion, no pitting or edema. No cyanosis. NEUROLOGICAL: Cranial nerves grossly intact. Normal speech, normal gait. Normal sensory, motor exams PSYCH: Normal mood, normal affect. SKIN: Warm, Dry, normal turgor, no rashes or lesions noted. Course - Re-evaluation Re-evalutation: 11/11/17 10:47 67-year-old female presents with concern for elevated blood pressure over the last few days. She states that she has not taken her blood pressure medication in 48 hours. Also states that she noticed the elevation since starting a new medication for her back pain. Upon arrival blood pressure was 214/87. Prior to discharge it is 198/91. She is due for dialysis today. She has no physical complaints at this time and repeatedly states "I feel fine".Presentation of asymptomatic hypertension. Patient denies any symptoms concerning for SAH, dissection, NC, or encephalopaty. Alert, oriented, and denies any symptoms at time of assessment. Normal neuro exam. Per ACEP policy guidelines, will therefore not obtain any labs or EKG at this time and will not initiate new BP treatment. I have discussed critical importance of follow up with PCP within 1 week and increased risk of devastating stroke, heart attack, respiratory distress, and other life threatening complications if blood pressure is not reduced appropriately. Diet and exercise habits also discussed. Patient will be discharged with return precautions and follow-up recommendations. - Vital Signs Vital signs: Temp Pulse Resp BP Pulse Ox 98.4 F 68 18 191/79 H 100 11/11/17 09:52 11/11/17 09:52 11/11/17 09:52 11/11/17 09:52 11/11/17 09:52 Discharge - Discharge Clinical Impression: End stage renal disease on dialysis, Noncompliance with medication regimen Hypertension Qualifiers: Hypertension type: unspecified Qualified Code(s): I10 - Essential (primary) hypertension Medication reaction Qualifiers: Encounter type: initial encounter Qualified Code(s): T50.905A - Adverse effect of unspecified drugs, medicaments and biological substances, initial encounter Condition: Good Disposition: HOME, SELF-CARE Instructions: High Blood Pressure ([facility]) Additional Instructions: Your blood pressure was found to be elevated today. This could be due to the new medication that you introduce for your back pain. It is also likely due to not taking your blood pressure medication for the last 2 days. Please proceed to dialysis today. Please discontinue the medication back aid. Please follow- up with your primary care physician if you continue to have elevated blood pressure readings. Please return to the emergency department if you experience headache, changes in your vision, slurred speech, chest pain, shortness of breath. Follow up with your physician tomorrow for further care or return to the ED IMMEDIATELY if symptoms worsen or new concerns occur. If you cannot afford to follow up with your primary care physician a list of low cost clinics have been provided at the end of your discharge papers as well. Regarding Blood Pressure: Your blood pressure was noted to be greater than 120/80 at least once in the emergency room today. It is recommended that you follow-up with her primary care physician in the next week for repeat blood pressure check. The Centers for Medicare and Medicaid Services has specific recommendations regarding a person's blood pressure. There are several lifestyle modifications that are recommended in order to help lower your blood pressure. These include: Quitting smoking if you smoke. Reducing the amount of sodium in your diet. Getting regular exercise Limiting alcohol to no more than 2 drinks a day for men and one drink a day for women. Eating a healthy diet, including more fruits and vegetables, low fat dairy products, less saturated and total fat. Losing weight if you are overweight. FOLLOW-UP: Call your doctor's office and let them know your blood pressure was elevated and you were advised to get your blood pressure checked in the above time-line. If you are unable to get into your doctor's office in this time period, you can follow-up with a new physician (I have left the numbers below for a few primary care doctors affiliated with this [facility]) or return to the ER. PRIMARY CARE PHYSICIANS: Dr. Rosanna Meyers [address], [place] [address] [phone] Dr Chavez Address: [address] [place] [address] , [place] [address] Dr Harris Address: [address] , [place] [address] Forms: Elevated Blood Pressure Referrals: PRADEEP HARRIS MD [Primary Care Provider] - Follow up as needed
[2017-11-11 09:53] VITALS: BP 191/79
== END 2017-11-11 09:53 | disposition home or self-care (01) ==
LOC: ER 09:07
DX: I12.0 Hypertensive chronic kidney disease with stage 5 chronic kidney disease or end stage renal disease (principal); N18.6 End stage renal disease; T46.1X6A Underdosing of calcium-channel blockers, initial encounter; Z91.14 Patient's other noncompliance with medication regimen; Z99.2 Dependence on renal dialysis; J44.9 Chronic obstructive pulmonary disease, unspecified; M54.9 Dorsalgia, unspecified; Z79.899 Other long term (current) drug therapy; Z88.8 Allergy status to other drugs, medicaments and biological substances; Z88.0 Allergy status to penicillin; Z88.6 Allergy status to analgesic agent
CPT/HCPCS: 99283

== ENCOUNTER 2017-12-17 21:50 | Emergency (ER) | payer MEDICARE, MEDICAID ==
[2017-12-17] MEDS ORDERED: IPRATROPIUM/ALBUTEROL 0.5-2.5 MG/3 ML AMPUL NEB ONE (22:50)
[2017-12-17] MEDS ORDERED: CLONIDINE HCL 0.2 MG TABLET PO ONE (22:54)
--- NOTE | 2017-12-17 22:57 | ER Document Report ---
ED Respiratory Problem - General Chief Complaint: Asthma Exacerbation Stated Complaint: BLOOD PRESSURE ISSUES Time Seen by Provider: 12/17/17 22:38 Mode of Arrival: Ambulatory Information source: Patient, Relative, [facility] Records Notes: This 67-year-old female patient with a history of very difficult to control hypertension, COPD, asthma, and chronic renal failure on dialysis comes emergency room complaining of wheezing, shortness of breath, cough and congestion, and high blood pressure. She does have a clear productive cough now. The cough had been productive of yellow sputum prior to starting the Levaquin 6 days ago. She was seen in the office on 12/12/2017, and prescribed Levaquin, Symbicort, and put on a prednisone dose of 60 mg daily for 5 days, then 40 mg daily for 5 days, then 20 mg daily for 5 days. She reports she had dialysis yesterday, they took off what sounds like perhaps 3 pounds of fluid. She states that her lower extremities began swelling after dialysis yesterday. The patient does have an albuterol inhaler that she has been using for her wheezing. She does take metoprolol, nifedipine, and clonidine for her high blood pressure. TRAVEL OUTSIDE OF THE [place] IN LAST 30 DAYS: No - Related Data Allergies/Adverse Reactions: pseudoephedrine HCl [From Sudafed] Allergy (Intermediate, Verified 11/11/17 09: 11) Tongue Swelling aspirin [Aspirin] Allergy (Verified 11/11/17 09:11) Penicillins Allergy (Verified 11/11/17 09:11) KI Inhibitors [Ki Inhibitors] Adverse Reaction (Intermediate, Verified 09:11) Angioedema Past Medical History - General Information source: Patient, Relative, [facility] Records - Social History Smoking Status: Never Smoker Cigarette use (# per day): No Chew tobacco use (# tins/day): No Smoking Education Provided: No Frequency of alcohol use: None Drug Abuse: None Lives with: Spouse/Significant other Family History: Reviewed & Not Pertinent - Past Medical History Cardiac Medical History: Reports: Hx Hypertension Pulmonary Medical History: Reports: Hx Asthma, Hx Bronchitis, Hx COPD EENT Medical History: Reports: None Neurological Medical History: Reports: None Endocrine Medical History: Reports: None Renal/ Medical History: Reports: Hx End Stage Renal Disease, Hx Hemodialysis GI Medical History: Reports: None Musculoskeletal Medical History: Reports Hx Arthritis Psychiatric Medical History: Reports: None Past Surgical History: Reports: Hx Hysterectomy, Other - PermCath insertion. First stage left transposed brachial vein fistula. - Immunizations Immunizations up to date: Yes Hx Diphtheria, Pertussis, Tetanus Vaccination: Yes Review of Systems - Review of Systems Constitutional: No symptoms reported EENT: Nose congestion Cardiovascular: Edema Respiratory: See HPI, Cough, Short of breath, Wheezing. denies: Sputum Gastrointestinal: No symptoms reported Genitourinary: No symptoms reported Female Genitourinary: Post menopausal Musculoskeletal: Leg swelling, Ankle swelling Skin: No symptoms reported Hematologic/Lymphatic: No symptoms reported Neurological/Psychological: No symptoms reported Physical Exam - Vital signs Vitals: Temp Pulse Resp BP Pulse Ox 98.3 F 74 22 H 192/81 H 98 12/17/17 22:18 12/17/17 22:18 12/17/17 22:18 12/17/17 22:18 12/17/17 22:18 Interpretation: Hypertensive, Tachypneic - General General appearance: Appears well In distress: Mild - HEENT Head: Normocephalic, Atraumatic Eyes: Normal Pupils: PERRL Nasal: Other - There is some nasal congestion Mucous membranes: Normal Neck: Normal - Respiratory Respiratory status: Tachypnea Chest status: Nontender Breath sounds: Nonproductive cough - Nonproductive congested cough, Rhonchi, Wheezing - Cardiovascular Rhythm: Regular Heart sounds: Normal auscultation Murmur: No - Abdominal Inspection: Normal Bowel sounds: Normal Tenderness: Nontender - Back Back: Normal - Extremities General upper extremity: Normal inspection General lower extremity: Edema - There is some pitting edema to the lower extremities. - Neurological Neuro grossly intact: Yes - Psychological Associated symptoms: Normal affect, Normal mood - Skin Skin Temperature: Warm Skin Moisture: Dry Skin Color: Normal Course - Re-evaluation Re-evalutation: 12/18/17 00:15 After the DuoNeb treatment the patient states her breathing feels much better. On auscultation the wheezes and rhonchi on the right chest have pretty much cleared, there remains rhonchi and some wheezes in the left lower lung region which corresponds to the infiltrate seen on the chest x-ray. 12/18/17 00:51 The patient's blood pressure has remained quite high. I was able to determine what medication she is actually supposed to be taking in the doses now. She did not take her evening dose of her blood pressure medications which would include nifedipine extended release 60 mg, hydralazine 150 mg, clonidine 0.3 mg , and metoprolol tartrate 100 mg. She will be given these medications at this time. She will also receive a dose of potassium because her potassium level is quite low. She will also be discharged home with an albuterol inhaler, as her albuterol inhaler is getting low. She will be given copies of her lab work and chest x-ray report to take to dialysis in the morning for her providers to see what her electrolytes looked like this evening and what the chest x-ray showed. - Vital Signs Vital signs: Temp Pulse Resp BP Pulse Ox 98.3 F 74 22 H 192/81 H 98 12/17/17 22:18 12/17/17 22:18 12/17/17 22:18 12/17/17 22:18 12/17/17 22:18 - Laboratory Result Diagrams: 12/17/17 23:45 12/17/17 23:45 Laboratory results interpreted by me: 12/17/17 12/17/17 23:45 23:45 RBC 3.38 L Hgb 10.3 L Hct 29.7 L RDW 15.0 H Sodium 130.0 L Potassium 2.6 L* Chloride 92 L Creatinine 4.30 H Est GFR ( Amer) 12 L Est GFR (Non-Af Amer) 10 L Direct Bilirubin 0.7 H AST 59 H Total Protein 5.5 L Albumin 3.1 L - Diagnostic Test Radiology reviewed: Image reviewed, Reports reviewed - Chest x-ray shows a left lower lobe opacity with small adjacent pleural effusion. There is no suggestion of pulmonary vascular congestion. Discharge - Discharge Clinical Impression: Bronchitis with bronchospasm, Left lower lobe pulmonary infiltrate, Poorly- controlled hypertension, Hypokalemia, Hyponatremia Condition: Stable Disposition: HOME, SELF-CARE Additional Instructions: Your chest x-ray shows a pneumonia in the left lower lung. There are no comparison x-rays to tell if this is improving or not. You do report that your sputum has changed from yellow to clear since starting the antibiotics so more than likely the antibiotics are working well for treating this pneumonia. Your white blood cell count is not elevated at this time, and again there is no comparison lab work to tell if it is improved or unchanged from before the antibiotics were started. Your breathing did improve quite a bit with the nebulizer treatments. You will be discharged with a albuterol inhaler to use every 2-4 hours for wheezing. You should continue the antibiotics and steroids that were prescribed last week. Be sure not to miss any doses of your blood pressure medications, as your blood pressure was quite high this evening. Take copies of the lab work and the chest x-ray to dialysis in the morning for your providers to see and have to compare to lab work they can repeat in the morning. Be sure you do talk with one of your doctors tomorrow about the lab work from [facility], the chest x-ray, and how you responded to the breathing treatments. RETURN TO THE EMERGENCY ROOM IF ANY NEW OR WORSENING SYMPTOMS. Referrals: Kathleen RIVERA MD [ACTIVE STAFF] - 12/18/17
--- NOTE | 2017-12-17 23:10 | RADIOLOGY REPORT (SQ) ---
XR CHEST 2 VIEWS HISTORY: COPD exacerbation, PMH CHF. COMPARISON: None. FINDINGS/IMPRESSION: Normal cardiomediastinal silhouette. Left lower lobe opacity with adjacent small pleural effusion. Left upper extremity vascular stents are seen.
[2017-12-18 00:09] LABS: ABSOLUTE EOSINOPHILS # (AUTO) 0.1 10^3/uL (0.0-0.6); ABSOLUTE LYMPHOCYTES (AUTO) 0.8 10^3/uL (0.5-4.7); ABSOLUTE MONOCYTES (AUTO) 0.5 10^3/uL (0.1-1.4); ABSOLUTE NEUT (AUTO) 3.4 10^3/uL (1.7-8.2); BASOPHILS % (AUTO) 0.5 % (0-2); EOSINOPHILS % (AUTO) 1.4 % (0-6); HEMATOCRIT 29.7 % (36.0-47.0); HEMOGLOBIN 10.3 g/dL (12.0-15.5); LYMPHOCYTES % (AUTO) 17.1 % (13-45); MEAN CORPUSCULAR HEMOGLOBIN 30.5 pg (27.0-33.4); MEAN CORPUSCULAR HGB CONC 34.7 g/dL (32.0-36.0); MEAN CORPUSCULAR VOLUME 88 fl (80-97); MONOCYTES % (AUTO) 10.5 % (3-13); PLATELET COUNT 226 10^3/uL (150-450); RED BLOOD COUNT 3.38 10^6/uL (3.72-5.28); SEGMENTED NEUTROPHILS % (AUTO) 70.5 % (42-78); TOTAL CELLS COUNTED % (AUTO) 100 %; WHITE BLOOD COUNT 4.8 10^3/uL (4.0-10.5)
[2017-12-18] MEDS ORDERED: ALBUTEROL SULFATE 0.083% NEB 2.5 MG/3 ML AMPUL NEB ONE (00:14)
[2017-12-18 00:26] LABS: ALANINE AMINOTRANSFERASE 23 U/L (9-52); ALBUMIN 3.1 g/dL (3.5-5.0); ALKALINE PHOSPHATASE 90 U/L (38-126); ANION GAP 12 (5-19); ASPARTATE AMINO TRANSFERASE 59 U/L (14-36); BILIRUBIN,DIRECT 0.7 mg/dL (0.0-0.4); BILIRUBIN,TOTAL 0.8 mg/dL (0.2-1.3); BLOOD UREA NITROGEN 11 mg/dL (7-20); CALCIUM 8.6 mg/dL (8.4-10.2); CARBON DIOXIDE 26 mmol/L (22-30); CHLORIDE 92 mmol/L (98-107); GLUCOSE 79 mg/dL (75-110); TOTAL PROTEIN 5.5 g/dL (6.3-8.2)
[2017-12-18 00:32] LABS: POTASSIUM 2.6 mmol/L (3.6-5.0)
[2017-12-18] MEDS ORDERED: POTASSIUM CHLORIDE 20 MEQ/15 ML UDCUP PO ONE (00:37)
[2017-12-18] MEDS ORDERED: HYDRALAZINE HCL INJ/PF 20 MG/1 ML SDV IV ONE (00:43)
[2017-12-18] MEDS ORDERED: CLONIDINE HCL 0.2 MG TABLET PO ONE (00:45)
[2017-12-18] MEDS ORDERED: HYDRALAZINE HCL 50 MG TABLET PO ONE (00:45)
[2017-12-18] MEDS ORDERED: NIFEDIPINE 30 MG TAB.ER.24 PO ONE (00:46)
[2017-12-18] MEDS ORDERED: METOPROLOL TARTRATE 100 MG TABLET PO ONE (00:50)
[2017-12-18] MEDS ORDERED: ALBUTEROL SULFATE HFA (90 MCG/PUFF) 8 GM MDI (1 MDI/ER DISP) IH ONE (00:56)
[2017-12-18 01:18] VITALS: BP 207/69
== END 2017-12-18 01:30 | disposition home or self-care (01) ==
LOC: ER 21:50
DX: J44.0 Chronic obstructive pulmonary disease with (acute) lower respiratory infection (principal); R91.8 Other nonspecific abnormal finding of lung field; I10 Essential (primary) hypertension; E87.6 Hypokalemia; E87.1 Hypo-osmolality and hyponatremia; N18.9 Chronic kidney disease, unspecified; R06.02 Shortness of breath; R05 Cough; Z79.899 Other long term (current) drug therapy
CPT/HCPCS: 94640 ×2; 99285; 36415; 85025; 80053; 71046; A9270 ×8; J3490; J7620

== ENCOUNTER 2018-01-01 10:33 | Inpatient (IN) | payer MEDICARE, MEDICAID ==
[2018-01-01] MEDS ORDERED: ALBUTEROL SULFATE 0.083% NEB 2.5 MG/3 ML AMPUL NEB ONE ×2 (10:38→10:41)
--- NOTE | 2018-01-01 10:50 | ER Document Report ---
ED Respiratory Problem - General Stated Complaint: DIFFICULTY BREATHING Time Seen by Provider: 01/01/18 10:40 TRAVEL OUTSIDE OF THE [place] IN LAST 30 DAYS: No - HPI Patient complains to provider of: COPD Onset: This morning Duration: Continuous Initiating Event: URI Quality of pain: No pain Severity: Moderate Pain Level: Denies Context: Hx COPD Short of Breath: Moderate Cough: Nonproductive Sputum amount: None Associated symptoms: None Similar symptoms previously: Yes Notes: Patient is a 67-year-old female that presents to the emergency department for chief complaint of respiratory distress. She had acute onset of respiratory distress this morning. EMS found her on her front porch and reports she was 89% on room air and appeared to be very tachypneic. Patient was placed on BiPAP for increased work of breathing and hypoxia by EMS prior to arrival. She states her shortness of breath started when she woke up, she denied any shortness of breath yesterday. She does have COPD and has been using home albuterol. She received DuoNeb and Solu-Medrol by EMS and states that did give her improvement of her symptoms. She denies any associated diaphoresis, nausea, vomiting and chest pain. She denies history of needing intubated in the past. Her last dialysis treatment was Monday and was completed. She is next scheduled for dialysis tomorrow. Patient completed a 5-day course of Levaquin for pneumonia 2 days ago and states she was feeling better. Past Medical History: COPD, CKD Past Surgical History: Fistula Social History: Reviewed in chart Family History: Reviewed and noncontributory for presenting illness Allergies: Reviewed, see documented allergy list. REVIEW OF SYSTEMS: CONSTITUTIONAL : No fever No chills No diaphoresis No recent illness EENT: No vision changes No congestion No sore throat CARDIOVASCULAR: No chest pain No palpitations RESPIRATORY: shortness of breath cough difficulty breathing GASTROINTESTINAL: No abdominal pain No nausea No vomiting No diarrhea GENITOURINARY: No dysuria No hematuria No difficulty urinating MUSCULOSKELETAL: No back pain No leg pain No arm pain SKIN: No rashes No lesions LYMPHATIC: No swollen, enlarged glands. NEUROLOGICAL: No lightheadedness No headache No weakness No paresthesias PSYCHIATRIC: No anxiety No depression PHYSICAL EXAMINATION: Vital signs reviewed, nursing noted reviewed. GENERAL: Well-appearing, well-nourished and in no acute distress. HEAD: Atraumatic, normocephalic. EYES: Eyes appear normal, extraocular movements intact, sclera anicteric, conjunctiva are normal. ENT: nares patent, oropharynx clear without exudates. Moist mucous membranes. NECK: Normal range of motion, supple without lymphadenopathy LUNGS: Tachypneic, moderate accessory muscle use, speaking in partial sentences , bilateral wheezing HEART: Regular rate and rhythm without murmurs ABDOMEN: Soft, nontender, normoactive bowel sounds. No rebound, guarding, or rigidity. No masses appreciated. EXTREMITIES: Nontender, good range of motion, no pitting or edema. NEUROLOGICAL: No focal neurological deficits. Moves all extremities spontaneously Motor and sensory grossly intact on exam. PSYCH: Normal mood, normal affect. SKIN: Warm, Dry, normal turgor, no rashes or lesions noted on exposed skin - Related Data Allergies/Adverse Reactions: pseudoephedrine HCl [From Sudafed] Allergy (Intermediate, Verified 11/11/17 09: 11) Tongue Swelling aspirin [Aspirin] Allergy (Verified 11/11/17 09:11) Penicillins Allergy (Verified 11/11/17 09:11) KI Inhibitors [Ki Inhibitors] Adverse Reaction (Intermediate, Verified 09:11) Angioedema Past Medical History - Social History Smoking Status: Former Smoker Family History: Reviewed & Not Pertinent - Past Medical History Cardiac Medical History: Reports: Hx Hypertension Pulmonary Medical History: Reports: Hx Asthma, Hx Bronchitis, Hx COPD Renal/ Medical History: Reports: Hx End Stage Renal Disease, Hx Hemodialysis. Denies: Hx Peritoneal Dialysis GI Medical History: Denies: Hx Cirrhosis, Hx Gastroesophageal Reflux Disease, Hx Hepatitis, Hx Hiatal Hernia, Hx Ulcer Musculoskeletal Medical History: Reports Hx Arthritis, Denies Hx Multiple Sclerosis Psychiatric Medical History: Denies: Hx Bipolar Disorder, Hx Depression, Hx Schizophrenia Infectious Medical History: Denies: Hx Hepatitis Past Surgical History: Reports: Hx Hysterectomy, Other - PermCath insertion. First stage left transposed brachial vein fistula.. Denies: Hx Mastectomy, Hx Open Heart Surgery, Hx Pacemaker - Immunizations Immunizations up to date: Yes Hx Diphtheria, Pertussis, Tetanus Vaccination: Yes Review of Systems - Review of Systems Notes: Dictated Physical Exam - Vital signs Vitals: Temp Resp BP Pulse Ox 97.6 F 21 H 157/97 H 97 01/01/18 10:40 01/01/18 10:40 01/01/18 10:40 01/01/18 10:40 - Notes Notes: Dictated Course - Re-evaluation Re-evalutation: 01/01/18 13:06 Vitals reviewed. Nursing notes reviewed. Patient on BiPAP at presentation for increased work of breathing. ABG was obtained which shows respiratory alkalosis. Chest x-ray is consistent with pneumonia. Patient has failed outpatient management with Levaquin and will be admitted to the hospital for further IV antibiotics and monitoring of her respiratory decompensation. On reevaluation patient was having significant improvement of her work of breathing. She will be weaned off of BiPAP onto nasal cannula oxygen. Patient will be admitted to [facility] because of her respiratory status. Case discussed with Dr. Wiley who accepted admission. Laboratory 01/01/18 01/01/18 01/01/18 10:46 10:46 10:46 WBC 10.4 RBC 3.49 L Hgb 10.7 L Hct 30.6 L MCV 88 MCH 30.6 MCHC 34.9 RDW 16.1 H Plt Count 202 Seg Neutrophils % 82.5 H Lymphocytes % 11.5 L Monocytes % 5.5 Eosinophils % 0.2 Basophils % 0.3 Absolute Neutrophils 8.6 H Absolute Lymphocytes 1.2 Absolute Monocytes 0.6 Absolute Eosinophils 0.0 Absolute Basophils 0.0 Carbonic Acid HCO3/H2CO3 Ratio ABG pH ABG pCO2 ABG pO2 ABG HCO3 ABG Total CO2 ABG O2 Saturation ABG Base Excess FiO2 Sodium 134.2 L Potassium 3.3 L Chloride 96 L Carbon Dioxide 26 Anion Gap 12 BUN 21 H Creatinine 4.53 H Est GFR ( Amer) 12 L Est GFR (Non-Af Amer) 10 L Glucose 113 H Lactic Acid Calcium 9.2 Total Bilirubin 1.1 Direct Bilirubin 0.8 H Neonat Total Bilirubin Not Reportable Neonat Direct Bilirubin Not Reportable Neonat Indirect Bili Not Reportable AST 22 ALT 11 Alkaline Phosphatase 91 Troponin I 0.027 Total Protein 5.8 L Albumin 3.4 L 01/01/18 01/01/18 10:46 10:55 WBC RBC Hgb Hct MCV MCH MCHC RDW Plt Count Seg Neutrophils % Lymphocytes % Monocytes % Eosinophils % Basophils % Absolute Neutrophils Absolute Lymphocytes Absolute Monocytes Absolute Eosinophils Absolute Basophils Carbonic Acid 1.05 HCO3/H2CO3 Ratio 23:1 ABG pH 7.47 H ABG pCO2 34.8 L ABG pO2 108.6 H ABG HCO3 24.5 H ABG Total CO2 25.5 H ABG O2 Saturation 98.2 H ABG Base Excess 1.0 FiO2 50% Sodium Potassium Chloride Carbon Dioxide Anion Gap BUN Creatinine Est GFR ( Amer) Est GFR (Non-Af Amer) Glucose Lactic Acid 1.1 Calcium Total Bilirubin Direct Bilirubin Neonat Total Bilirubin Neonat Direct Bilirubin Neonat Indirect Bili AST ALT Alkaline Phosphatase Troponin I Total Protein Albumin Chest X-Ray 01/01/18 10:42 IMPRESSION: BASILAR DENSITIES, SUSPECT DEVELOPING PNEUMONIA IN THE MEDIAL RIGHT LUNG BASE. PROBABLE PLEURAL EFFUSIONS. - Vital Signs Vital signs: Temp Pulse Resp BP Pulse Ox 97.6 F 16 154/63 H 98 01/01/18 10:40 01/01/18 11:24 01/01/18 11:24 01/01/18 11:24 - Laboratory Result Diagrams: 01/01/18 10:46 01/01/18 10:46 Laboratory results interpreted by me: 01/01/18 01/01/18 01/01/18 10:46 10:46 10:55 RBC 3.49 L Hgb 10.7 L Hct 30.6 L RDW 16.1 H Seg Neutrophils % 82.5 H Lymphocytes % 11.5 L Absolute Neutrophils 8.6 H ABG pH 7.47 H ABG pCO2 34.8 L ABG pO2 108.6 H ABG HCO3 24.5 H ABG Total CO2 25.5 H ABG O2 Saturation 98.2 H Sodium 134.2 L Potassium 3.3 L Chloride 96 L BUN 21 H Creatinine 4.53 H Est GFR ( Amer) 12 L Est GFR (Non-Af Amer) 10 L Glucose 113 H Direct Bilirubin 0.8 H Total Protein 5.8 L Albumin 3.4 L - EKG Interpretation by Me Additional EKG results interpreted by me: 01/01/18 11:31 Interpreted by myself 1100:Normal sinus rhythm, rate 66, PVCs, normal axis, no ST elevation Critical Care Note - Critical Care Note Total time excluding time spent on procedures (mins): 40 - Respiratory distress requiring BiPAP stabilization. Potential for respiratory decompensation Discharge - Discharge Clinical Impression: COPD exacerbation, Respiratory alkalosis Respiratory failure Qualifiers: Chronicity: acute on chronic Respiratory failure complication: unspecified whether with hypoxia or hypercapnia Qualified Code(s): J96.20 - Acute and chronic respiratory failure, unspecified whether with hypoxia or hypercapnia Pneumonia Qualifiers: Pneumonia type: due to unspecified organism Laterality: unspecified laterality Lung location: lower lobe of lung Qualified Code(s): J18.1 - Lobar pneumonia, unspecified organism Condition: Stable Disposition: ADMITTED INPATIENT Admitting Provider: Inez Unit Admitted: IMCU Referrals: SHIRA MONK PA-C [Primary Care Provider] - Follow up as needed
[2018-01-01 11:07] LABS: ABSOLUTE LYMPHOCYTES (AUTO) 1.2 10^3/uL (0.5-4.7); ABSOLUTE MONOCYTES (AUTO) 0.6 10^3/uL (0.1-1.4); ABSOLUTE NEUT (AUTO) 8.6 10^3/uL (1.7-8.2); BASOPHILS % (AUTO) 0.3 % (0-2); EOSINOPHILS % (AUTO) 0.2 % (0-6); HEMATOCRIT 30.6 % (36.0-47.0); HEMOGLOBIN 10.7 g/dL (12.0-15.5); LYMPHOCYTES % (AUTO) 11.5 % (13-45); MEAN CORPUSCULAR HEMOGLOBIN 30.6 pg (27.0-33.4); MEAN CORPUSCULAR HGB CONC 34.9 g/dL (32.0-36.0); MEAN CORPUSCULAR VOLUME 88 fl (80-97); MONOCYTES % (AUTO) 5.5 % (3-13); PLATELET COUNT 202 10^3/uL (150-450); RED BLOOD COUNT 3.49 10^6/uL (3.72-5.28); RED CELL DISTRIBUTION WIDTH 16.1 % (11.5-14.0); SEGMENTED NEUTROPHILS % (AUTO) 82.5 % (42-78); TOTAL CELLS COUNTED % (AUTO) 100 %; WHITE BLOOD COUNT 10.4 10^3/uL (4.0-10.5)
[2018-01-01 11:22] LABS: ARTERIAL BLOOD H2CO3 1.05 mmol/L (1.05-1.35); ARTERIAL BLOOD HCO3 24.5 mmol/L (20-24); ARTERIAL BLOOD O2 SATURATION 98.2 % (94-98); ARTERIAL BLOOD PCO2 34.8 mmHg (35-45); ARTERIAL BLOOD PH 7.47 (7.35-7.45); ARTERIAL BLOOD PO2 108.6 mmHg (80-100); ARTERIAL BLOOD TOTAL CO2 25.5 mmol/L (21-25)
[2018-01-01 11:23] LABS: ARTERIAL BLOOD FIO2 50%
[2018-01-01 11:28] LABS: ALANINE AMINOTRANSFERASE 11 U/L (9-52); ALBUMIN 3.4 g/dL (3.5-5.0); ALKALINE PHOSPHATASE 91 U/L (38-126); ANION GAP 12 (5-19); ASPARTATE AMINO TRANSFERASE 22 U/L (14-36); BILIRUBIN,DIRECT 0.8 mg/dL (0.0-0.4); BILIRUBIN,TOTAL 1.1 mg/dL (0.2-1.3); BLOOD UREA NITROGEN 21 mg/dL (7-20); CALCIUM 9.2 mg/dL (8.4-10.2); CARBON DIOXIDE 26 mmol/L (22-30); CHLORIDE 96 mmol/L (98-107); GLUCOSE 113 mg/dL (75-110); POTASSIUM 3.3 mmol/L (3.6-5.0); SODIUM 134.2 mmol/L (137-145); TOTAL PROTEIN 5.8 g/dL (6.3-8.2)
--- NOTE | 2018-01-01 11:29 | EKG REPORT ---
SEVERITY:- ABNORMAL ECG - SINUS RHYTHM PAIRED VENTRICULAR PREMATURE COMPLEXES : Confirmed by: Mare Joseph MD 01-Jan-2018 11:28:26
[2018-01-01] MEDS ORDERED: VANCOMYCIN HCL INJ 1000 MG VIAL IV ONE ×2 (12:08→15:00)
[2018-01-01] MEDS ORDERED: ERTAPENEM SODIUM INJ 1 GM VIAL IV ONE (12:09)
[2018-01-01] MEDS ORDERED: MEROPENEM 1 GM VIAL IV ONE ×2 (12:10→14:15)
--- NOTE | 2018-01-01 13:01 | RADIOLOGY REPORT (SQ) ---
EXAM DESCRIPTION: CHEST SINGLE VIEW COMPLETED DATE/TIME: 01/01/2018 11:33 am REASON FOR STUDY: SOB COMPARISON: 12/17/2017. EXAM PARAMETERS: NUMBER OF VIEWS: One view. TECHNIQUE: Single frontal radiographic view of the chest acquired. RADIATION DOSE: NA LIMITATIONS: None. FINDINGS: LUNGS AND PLEURA: Faint densities in the lung bases, particularly in the medial right lung base. Probable pleural effusions. MEDIASTINUM AND HILAR STRUCTURES: No masses. Contour normal. HEART AND VASCULAR STRUCTURES: Heart normal in size. Normal vasculature. BONES: No acute findings. HARDWARE: Left axillary stent. OTHER: No other significant finding. IMPRESSION: BASILAR DENSITIES, SUSPECT DEVELOPING PNEUMONIA IN THE MEDIAL RIGHT LUNG BASE. PROBABLE PLEURAL EFFUSIONS. TECHNICAL DOCUMENTATION: JOB ID: [id number] [employer]- All Rights Reserved Reading location - IP/workstation name: [email or web address]
[2018-01-01] MEDS ORDERED: ACETAMINOPHEN 325 MG TABLET PO PRN (15:36)
[2018-01-01] MEDS ORDERED: ONDANSETRON HCL INJ/PF 4 MG/2 ML SDV IV PRN (15:36)
[2018-01-01] MEDS ORDERED: AZITHROMYCIN INJ 500 MG VIAL IV ONE (15:47)
--- NOTE | 2018-01-01 16:00 | PDOC H&P ---
History of Present Illness Admission Date/PCP: 01/01/18 13:47 SHIRA MONK PA-C Patient complains of: Shortness of breath History of Present Illness: Patient is a 67-year-old female that presents to the emergency department for chief complaint of respiratory distress. She had acute onset of respiratory distress this morning. EMS found her on her front porch and reports she was 89% on room air and appeared to be very tachypneic. Patient was placed on BiPAP for increased work of breathing and hypoxia by EMS prior to arrival. She states her shortness of breath started when she woke up, she denied any shortness of breath yesterday. She does have COPD and has been using home albuterol. She received DuoNeb and Solu-Medrol by EMS and states that did give her improvement of her symptoms. She denies any associated diaphoresis, nausea, vomiting and chest pain. She denies history of needing intubated in the past. Her last dialysis treatment was Monday and was completed. She is next scheduled for dialysis tomorrow. Patient states 2 weeks ago she had seen Dr. Wiley was diagnosed with bronchitis and given a 5-day course of Levaquin and some prednisone. She improved symptomatically however 2 days ago developed rhinorrhea and today had severe bronchospasm and acute shortness of breath and called EMS. After the above treatments patient had significant improvement she was placed on 4 L nasal cannula and was saturating in the mid 90s. She is due for dialysis tomorrow. Workup in the emergency room included laboratory studies which revealed a normal white count chest x-ray which showed a right lung infiltrate. Patient was treated with vancomycin and meropenem in the emergency room and a request for admission was made as patient has fired Dr. Wiley patient will come to the hospitalist service. Past Medical History Cardiac Medical History: Reports: Hypertension Pulmonary Medical History: Reports: Asthma, Bronchitis, Chronic Obstructive Pulmonary Disease (COPD) Renal/ Medical History: Reports: End Stage Renal Disease GI Medical History: Denies: Cirrhosis, Gastroesophageal Reflux Disease, Hepatitis, Hiatal Hernia Musculoskeltal Medical History: Reports: Arthritis Psychiatric Medical History: Denies: Bipolar Disorder, Depression Hematology: Denies: Anemia, Sickle Cell Disease, Bleeding Tendencies Past Surgical History Past Surgical History: Reports: Hysterectomy, Other - PermCath insertion. First stage left transposed brachial vein fistula. Denies: Amputation, Mastectomy, Pacemaker Social History Smoking Status: Former Smoker Frequency of Alcohol Use: None Hx Recreational Drug Use: No Drugs: None Hx Prescription Drug Abuse: No - Advance Directive Resuscitation Status: Full Code Family History Family History: CAD, Malignancy - Colorectal cancer, Other - Cardiomyopathy mother Parental Family History Reviewed: Yes Children Family History Reviewed: Yes Sibling(s) Family History Reviewed.: Yes Medication/Allergy Home Medications: Albuterol Sulfate [Proair HFA Inhalation Aerosol 8.5 gm MDI] 2 puff IH Q6HP PRN 10/21/14 Metoprolol Tartrate 100 mg PO BID 10/21/14 Hydralazine HCl 100 mg PO TID 02/07/15 Nifedipine [Procardia XL 30 mg Tablet] 60 mg PO Q12 07/30/15 Budesonide/Formoterol Fumarate [Symbicort 160-4.5 Mcg Inhaler] 2 puff IH BID 12/21 Clonidine HCl [Catapres 0.3 mg Tablet] 0.3 mg PO TID 01/01/18 Allergies/Adverse Reactions: pseudoephedrine HCl [From Sudafed] Allergy (Intermediate, Verified 11/11/17 09: 11) Tongue Swelling aspirin [Aspirin] Allergy (Verified 11/11/17 09:11) Penicillins Allergy (Verified 11/11/17 09:11) KI Inhibitors [Ki Inhibitors] Adverse Reaction (Intermediate, Verified 09:11) Angioedema Review of Systems Constitutional: ABSENT: chills, fever(s), headache(s), weight gain, weight loss Eyes: ABSENT: visual disturbances Cardiovascular: ABSENT: chest pain, dyspnea on exertion, edema, orthropnea, palpitations Respiratory: PRESENT: cough, dyspnea, other - Wheezing Gastrointestinal: ABSENT: abdominal pain, constipation, diarrhea, hematemesis, hematochezia, nausea, vomiting Genitourinary: ABSENT: dysuria, hematuria Musculoskeletal: ABSENT: joint swelling Integumentary: ABSENT: rash, wounds Neurological: ABSENT: abnormal gait, abnormal speech, confusion, dizziness, focal weakness, syncope Psychiatric: ABSENT: anxiety, depression, homidical ideation, suicidal ideation Endocrine: ABSENT: cold intolerance, heat intolerance, polydipsia, polyuria Hematologic/Lymphatic: ABSENT: easy bleeding, easy bruising Physical Exam Vital Signs: Temp Pulse Resp BP Pulse Ox 97.7 F 20 164/76 H 98 01/01/18 14:52 01/01/18 14:01 01/01/18 14:01 01/01/18 14:01 General appearance: PRESENT: no acute distress, well-developed, well-nourished Eye exam: PRESENT: conjunctiva pink, EOMI, PERRLA. ABSENT: scleral icterus Ear exam: PRESENT: normal external ear exam Mouth exam: PRESENT: moist, tongue midline Neck exam: ABSENT: carotid bruit, JVD, lymphadenopathy, thyromegaly Respiratory exam: PRESENT: clear to auscultation stella, decreased breath sounds, wheezes - And expiratory. ABSENT: rales, rhonchi Cardiovascular exam: PRESENT: RRR. ABSENT: diastolic murmur, rubs, systolic murmur GI/Abdominal exam: PRESENT: normal bowel sounds, soft. ABSENT: distended, guarding, mass, organolmegaly, rebound, tenderness Extremities exam: PRESENT: full ROM, other - Fistula left upper arm positive thrill and bruit. ABSENT: calf tenderness, clubbing, pedal edema Neurological exam: PRESENT: alert, awake, oriented to person, oriented to place , oriented to time, oriented to situation, CN II-XII grossly intact. ABSENT: motor sensory deficit Skin exam: PRESENT: dry, intact, warm. ABSENT: cyanosis, rash Results Impressions: Chest X-Ray 01/01/18 10:42 IMPRESSION: BASILAR DENSITIES, SUSPECT DEVELOPING PNEUMONIA IN THE MEDIAL RIGHT LUNG BASE. PROBABLE PLEURAL EFFUSIONS. Assessment & Plan - Diagnosis (1) End stage renal disease on dialysis Is this a current diagnosis for this admission?: Yes Plan: Consult Dr. Diane for hemodialysis (2) Acute hypoxemic respiratory failure Plan: Patient not on oxygen at home currently requiring 4 L. Continue pulmonary toilet as ordered (3) Pneumonia Qualifiers: Pneumonia type: due to unspecified organism Laterality: right Lung location: lower lobe of lung Qualified Code(s): J18.1 - Lobar pneumonia, unspecified organism Is this a current diagnosis for this admission?: Yes Plan: Community-acquired pneumonia we will treat with Rocephin and azithromycin. Nebulizing treatments and IV Solu-Medrol for the exacerbation. (4) Exacerbation of asthma Plan: Nebulizing treatments IV Solu-Medrol (5) Hypertension Qualifiers: Hypertension type: unspecified Qualified Code(s): I10 - Essential (primary ) hypertension Is this a current diagnosis for this admission?: Yes Plan: Continue outpatient antihypertensives monitor (6) Anemia, chronic renal failure Is this a current diagnosis for this admission?: Yes Plan: Hemoglobin 10 no further workup planned - Time Time Spent: 50 to 70 Minutes Anticipated discharge: Home Within: within 48 hours - Inpatient Certification Based on my medical assessment, after consideration of the patient's comorbidities, presenting symptoms, or acuity I expect that the services needed warrant INPATIENT care.: Yes I certify that my determination is in accordance with my understanding of Medicare's requirements for reasonable and necessary INPATIENT services [42 CFR 412.3e].: Yes Medical Necessity: Significant Comorbidiites Make Outpatient Treatment Too Risky , Need Close Monitoring Due to Risk of Patient Decompensation, Need for Nebulizer Therapy and Monitoring of Response
[2018-01-01] MEDS ORDERED: (PENDING PHARMACY ID) (Clonidine Hcl [Catapres 0.3 Mg Tablet] 0.3 MG) PO SCH (18:00)
[2018-01-01] MEDS: METOPROLOL TARTRATE 100 MG TABLET PO SCH (18:03)
[2018-01-01] MEDS: AZITHROMYCIN 500 MG in DEXTROSE 5%-WATER 250 ML IV SCH (18:06)
[2018-01-01] MEDS ORDERED: CLONIDINE HCL 0.1 MG TABLET PO ONE (18:30)
[2018-01-01] MEDS: IPRATROPIUM/ALBUTEROL 0.5-2.5 MG/3 ML AMPUL NEB PRN (19:01)
[2018-01-01] MEDS: HEPARIN SOD (PORCINE) 5,000 UNIT/ML 1 ML SYRINGE SUBCUT SCH (21:41)
[2018-01-01] MEDS: METHYLPREDNISOLONE INJ 40 MG/1 ML SDV IV SCH (21:41)
[2018-01-01] MEDS: FAMOTIDINE 20 MG TABLET PO SCH (21:41)
[2018-01-01] MEDS: HYDRALAZINE HCL 50 MG TABLET PO SCH (21:41)
[2018-01-01] MEDS: NIFEDIPINE 30 MG TAB.ER.24 PO SCH (21:42)
[2018-01-01] MEDS: CLONIDINE HCL 0.1 MG TABLET PO SCH (21:42)
[2018-01-01 21:45] LABS: ARTERIAL BLOOD BASE EXCESS 0.7 mmol/L; ARTERIAL BLOOD FIO2 45%; ARTERIAL BLOOD H2CO3 1.29 mmol/L (1.05-1.35); ARTERIAL BLOOD HCO3 25.7 mmol/L (20-24); ARTERIAL BLOOD O2 SATURATION 76.6 % (94-98); ARTERIAL BLOOD PH 7.39 (7.35-7.45); ARTERIAL BLOOD PO2 41.5 mmHg (80-100)
[2018-01-01] MEDS: MEROPENEM 500 MG in NORMAL SALINE 50 ML IV SCH (22:19)
[2018-01-02 05:06] LABS: ABSOLUTE LYMPHOCYTES (AUTO) 0.3 10^3/uL (0.5-4.7); ABSOLUTE MONOCYTES (AUTO) 0.2 10^3/uL (0.1-1.4); ABSOLUTE NEUT (AUTO) 5.7 10^3/uL (1.7-8.2); BASOPHILS % (AUTO) 0.2 % (0-2); EOSINOPHILS % (AUTO) 0.1 % (0-6); HEMATOCRIT 26.8 % (36.0-47.0); HEMOGLOBIN 9.1 g/dL (12.0-15.5); LYMPHOCYTES % (AUTO) 5.4 % (13-45); MEAN CORPUSCULAR HEMOGLOBIN 29.7 pg (27.0-33.4); MEAN CORPUSCULAR VOLUME 87 fl (80-97); MONOCYTES % (AUTO) 2.5 % (3-13); PLATELET COUNT 141 10^3/uL (150-450); RED BLOOD COUNT 3.07 10^6/uL (3.72-5.28); RED CELL DISTRIBUTION WIDTH 16.1 % (11.5-14.0); SEGMENTED NEUTROPHILS % (AUTO) 91.8 % (42-78); TOTAL CELLS COUNTED % (AUTO) 100 %; WHITE BLOOD COUNT 6.2 10^3/uL (4.0-10.5)
[2018-01-02 05:31] LABS: ANION GAP 16 (5-19); BLOOD UREA NITROGEN 26 mg/dL (7-20); CALCIUM 8.9 mg/dL (8.4-10.2); CARBON DIOXIDE 23 mmol/L (22-30); CHLORIDE 96 mmol/L (98-107); GLUCOSE 98 mg/dL (75-110); POTASSIUM 3.7 mmol/L (3.6-5.0); SODIUM 134.7 mmol/L (137-145)
[2018-01-02] MEDS: METOPROLOL TARTRATE 100 MG TABLET PO SCH ×2 (05:34→18:35)
[2018-01-02] MEDS: HEPARIN SOD (PORCINE) 5,000 UNIT/ML 1 ML SYRINGE SUBCUT SCH ×3 (05:34→21:53)
[2018-01-02] MEDS: HYDRALAZINE HCL 50 MG TABLET PO SCH ×3 (05:34→21:55)
[2018-01-02] MEDS: METHYLPREDNISOLONE INJ 40 MG/1 ML SDV IV SCH (05:34)
[2018-01-02] MEDS: CLONIDINE HCL 0.1 MG TABLET PO SCH ×3 (05:35→21:55)
[2018-01-02] MEDS: IPRATROPIUM/ALBUTEROL 0.5-2.5 MG/3 ML AMPUL NEB PRN (08:56)
--- NOTE | 2018-01-02 09:40 | RADIOLOGY REPORT (SQ) ---
EXAM DESCRIPTION: CHEST SINGLE VIEW COMPLETED DATE/TIME: 01/02/2018 9:27 am REASON FOR STUDY: SOB COMPARISON: 01/01/2018. EXAM PARAMETERS: NUMBER OF VIEWS: One view. TECHNIQUE: Single frontal radiographic view of the chest acquired. RADIATION DOSE: NA LIMITATIONS: None. FINDINGS: LUNGS AND PLEURA: Worsening infiltrate in the right lung. Patchy density in the left lung base unchanged. Possible small left pleural effusion. MEDIASTINUM AND HILAR STRUCTURES: No masses. Contour normal. HEART AND VASCULAR STRUCTURES: Heart normal in size. Normal vasculature. BONES: No acute findings. HARDWARE: None in the chest. OTHER: No other significant finding. IMPRESSION: WORSENING INFILTRATE IN THE RIGHT LUNG CONCERNING FOR PNEUMONIA. TECHNICAL DOCUMENTATION: JOB ID: [id number] [employer]- All Rights Reserved Reading location - IP/workstation name: [email or web address]
[2018-01-02] MEDS ORDERED: CEFTRIAXONE SODIUM 1,000 MG in DEXTROSE 5%-WATER 50 ML IV SCH (10:00)
[2018-01-02] MEDS ORDERED: CEFTRIAXONE 1 GM/D5W RTU 1 GM/50 ML RTUPB IV SCH (10:00)
--- NOTE | 2018-01-02 10:17 | PDOC PROGRESS REPORT ---
Subjective Progress Note for:: 01/02/18 Subjective:: Patient is a 67-year-old female that presents to the emergency department for chief complaint of respiratory distress. She had acute onset of respiratory distress this morning. EMS found her on her front porch and reports she was 89% on room air and appeared to be very tachypneic. Patient was placed on BiPAP for increased work of breathing and hypoxia by EMS prior to arrival. She states her shortness of breath started when she woke up, she denied any shortness of breath yesterday. She does have COPD and has been using home albuterol. She received DuoNeb and Solu-Medrol by EMS and states that did give her improvement of her symptoms. She denies any associated diaphoresis, nausea, vomiting and chest pain. She denies history of needing intubated in the past. Her last dialysis treatment was Monday and was completed. She is next scheduled for dialysis tomorrow. Patient states 2 weeks ago she had seen Dr. Wiley was diagnosed with bronchitis and given a 5-day course of Levaquin and some prednisone. She improved symptomatically however 2 days ago developed rhinorrhea and today had severe bronchospasm and acute shortness of breath and called EMS. After the above treatments patient had significant improvement she was placed on 4 L nasal cannula and was saturating in the mid 90s. Patient has had labile hypertension throughout the night. Remains afebrile white count is normal. This morning patient had a sudden change in her respiratory status becoming acutely short of breath and was placed on BiPAP. Chest x-ray shows right lung upper and lower infiltrates concerning for worsening pneumonia. Patient has been on meropenem and azithromycin since admission. X-ray changes are quite significant and unclear if there is a component of failure as well. Dr. Diane is seen the patient and planning dialysis today. Patient denies any chest pain pressure just the shortness of breath. Reason For Visit: PNEUMONIA, ACUTE HYPOXEMIC RESPIRATORY FAILURE Physical Exam Vital Signs: Temp Pulse Resp BP Pulse Ox 98.3 F 103 H 33 H 180/76 H 98 01/02/18 07:23 01/02/18 08:56 01/02/18 08:56 01/02/18 07:23 01/02/18 08:56 Intake & Output 01/01/18 01/02/18 01/03/18 06:59 06:59 06:59 Intake Total 500 Output Total 0 Balance 500 Weight 73.6 kg General appearance: PRESENT: no acute distress, well-developed, well-nourished Eye exam: PRESENT: conjunctiva pink, EOMI, PERRLA. ABSENT: scleral icterus Neck exam: ABSENT: carotid bruit, JVD, lymphadenopathy, thyromegaly Respiratory exam: PRESENT: rales, wheezes. ABSENT: rhonchi Cardiovascular exam: PRESENT: RRR. ABSENT: diastolic murmur, rubs, systolic murmur GI/Abdominal exam: PRESENT: normal bowel sounds, soft. ABSENT: distended, guarding, mass, organolmegaly, rebound, tenderness Extremities exam: PRESENT: full ROM, +1 edema. ABSENT: calf tenderness, clubbing, pedal edema Results Laboratory Results: 01/02/18 04:43 01/02/18 04:43 01/01/18 01/02/18 01/02/18 21:30 04:43 04:43 WBC 6.2 RBC 3.07 L Hgb 9.1 L Hct 26.8 L MCV 87 MCH 29.7 MCHC 34.0 RDW 16.1 H Plt Count 141 L Seg Neutrophils % 91.8 H Lymphocytes % 5.4 L Monocytes % 2.5 L Eosinophils % 0.1 Basophils % 0.2 Absolute Neutrophils 5.7 Absolute Lymphocytes 0.3 L Absolute Monocytes 0.2 Absolute Eosinophils 0.0 Absolute Basophils 0.0 Carbonic Acid 1.29 HCO3/H2CO3 Ratio 19:1 ABG pH 7.39 ABG pCO2 43.0 ABG pO2 41.5 L ABG HCO3 25.7 H ABG O2 Saturation 76.6 L ABG Base Excess 0.7 FiO2 45% Sodium 134.7 L Potassium 3.7 Chloride 96 L Carbon Dioxide 23 Anion Gap 16 BUN 26 H Creatinine 5.37 H Est GFR ( Amer) 10 L Est GFR (Non-Af Amer) 8 L Glucose 98 Calcium 8.9 Magnesium 1.8 Impressions: Chest X-Ray 01/02/18 00:00 IMPRESSION: WORSENING INFILTRATE IN THE RIGHT LUNG CONCERNING FOR PNEUMONIA. Assessment & Plan - Diagnosis (1) End stage renal disease on dialysis Is this a current diagnosis for this admission?: Yes Plan: Dr. Diane is been consulted has seen the patient today has decided to proceed with dialysis. Recommends patient be transferred to the intensive care unit which I agree. (2) Acute hypoxemic respiratory failure Is this a current diagnosis for this admission?: Yes Plan: Sudden worsening in patient's hypoxemic state. ABG is pending chest x-ray shows asymmetric infiltrates primarily right lung suggestive of worsening pneumonia. Patient remains afebrile with a normal white count because of the dramatic change will obtain an echocardiogram and a CTA to rule out pulmonary embolism. Will obtain an EKG troponin and BNP although the BNP will be less helpful in a dialysis patient. (3) Pneumonia Qualifiers: Pneumonia type: due to unspecified organism Laterality: right Lung location: lower lobe of lung Qualified Code(s): J18.1 - Lobar pneumonia, unspecified organism Is this a current diagnosis for this admission?: Yes Plan: Continue meropenem and azithromycin. Patient appears to have worsening of her infiltrate now upper and lower lobe. Continue antibiotics move patient to the medical intensive care unit obtain CTA because of the sudden and dramatic change of patient's condition. Reevaluate postdialysis chest x-ray in a.m. (4) Exacerbation of asthma Is this a current diagnosis for this admission?: Yes Plan: No audible wheezing this morning has had a sudden change in her respiratory status. We will continue IV Solu-Medrol and nebulizing treatments (5) Hypertension Qualifiers: Hypertension type: unspecified Qualified Code(s): I10 - Essential (primary ) hypertension Is this a current diagnosis for this admission?: Yes Plan: Labile reasonable control continue current medications (6) Anemia, chronic renal failure Is this a current diagnosis for this admission?: Yes Plan: Stable - Time Total Critical Time (Minutes): 50
[2018-01-02 10:20] LABS: ARTERIAL BLOOD BASE EXCESS -0.9 mmol/L; ARTERIAL BLOOD H2CO3 1.19 mmol/L (1.05-1.35); ARTERIAL BLOOD HCO3 23.8 mmol/L (20-24); ARTERIAL BLOOD O2 SATURATION 90.4 % (94-98); ARTERIAL BLOOD PCO2 39.5 mmHg (35-45); ARTERIAL BLOOD PO2 58.6 mmHg (80-100)
[2018-01-02 10:22] LABS: ARTERIAL BLOOD FIO2 50%
[2018-01-02] MEDS ORDERED: EPOETIN ALFA INJ 20000 UNIT/1 ML VIAL (RENAL) IV PRN ×2 (11:00→16:04)
[2018-01-02] MEDS ORDERED: MIDAZOLAM 2 MG/2 ML INJ ONE (11:35)
[2018-01-02] MEDS ORDERED: LIDOCAINE 1% INJ-PF (10 MG/ML) 30 ML SDV ONE (11:49)
--- NOTE | 2018-01-02 12:30 | RADIOLOGY REPORT (SQ) ---
EXAM DESCRIPTION: CHEST SINGLE VIEW COMPLETED DATE/TIME: 01/02/2018 12:19 pm REASON FOR STUDY: CENTRAL LINE PLACEMENT COMPARISON: None. EXAM PARAMETERS: NUMBER OF VIEWS: One view. TECHNIQUE: Single frontal radiographic view of the chest acquired. RADIATION DOSE: NA LIMITATIONS: None. FINDINGS: LUNGS AND PLEURA: Diffuse infiltrate in the right lung, more dense in the right base. No pneumothorax. Left lung clear. MEDIASTINUM AND HILAR STRUCTURES: No masses. Contour normal. HEART AND VASCULAR STRUCTURES: Heart normal in size. Normal vasculature. BONES: No acute findings. HARDWARE: Central line on the right side with the tip at the cavoatrial junction. Left axillary sten t. OTHER: No other significant finding. IMPRESSION: NO PNEUMOTHORAX FOLLOWING CENTRAL LINE PLACEMENT. NO SIGNIFICANT CHANGE. TECHNICAL DOCUMENTATION: JOB ID: [id number] [employer]- All Rights Reserved Reading location - IP/workstation name: [email or web address]
--- NOTE | 2018-01-02 13:02 | RADIOLOGY REPORT (SQ) ---
EXAM DESCRIPTION: CTA CHEST COMPLETED DATE/TIME: 01/02/2018 12:48 pm REASON FOR STUDY: Hypoxemic failure rule out PE COMPARISON: None. TECHNIQUE: CT scan of the chest performed using helical scanning technique with dynamic intravenous contrast injection. Images reviewed with lung, soft tissue and bone windows. Reconstructed coronal and sagittal MPR images reviewed. Additional 3 dimensional post-processing performed to develop Maximal Intensity Projection images (GA P). All images stored on PACS. All CT scanners at this facility use dose modulation, iterative reconstruction, and/or weight based d osing when appropriate to reduce radiation dose to as low as reasonably achievable (ALARA). [facility]: Dose Right [facility]: CareDose [facility]: Dose Right [facility]: Teradose 4D [facility]: VMob CONTRAST TYPE AND DOSE: 63 mL Omnipaque 350- low osmolar. Contrast bolus optimized for the pulmonary arteries. Not diagnostic for the aorta. RENAL FUNCTION: BUN 26 creatinine 5.37. Patient is scheduled for dialysis. RADIATION DOSE: CT Rad equipment meets quality standard of care and radiation dose reduction techniq ues were employed. CTDIvol: 1.9 - 14.1 mGy. DLP: 489 mGy-cm. . LIMITATIONS: None. FINDINGS: LUNGS AND PLEURA: Moderate bilateral pleural effusions, right greater than left. Patchy c onsolidation in both lung bases. Patchy airspace disease in the right upper lobe and right lower lob e. Dense consolidation/ collapse in the right middle lobe with air bronchograms. AORTA AND GREAT VESSELS: No aneurysm. Contrast bolus not optimized for the aorta. HEART: No pericardial effusion. No significant coronary artery calcifications. PULMONARY ARTERIES: No emboli visualized in the main pulmonary arteries or the segmental branches. HILAR AND MEDIASTINAL STRUCTURES: No identified masses or abnormal nodes. HARDWARE: Central line. Left axillary stent. UPPER ABDOMEN: No significant findings. Limited exam. THYROID AND OTHER SOFT TISSUES: No masses. No adenopathy. BONES: No acute or significant finding. 3D MIPS: Confirm above findings. OTHER: No other significant finding. IMPRESSION: 1. NORMAL CTA OF THE CHEST. NO PULMONARY EMBOLI. 2. MODERATE BILATERAL PLEURAL EFFUSIONS, RIGHT GREATER THAN LEFT. PATCHY CONSOLIDATION IN BOTH LUNG BASES MAY BE DUE TO ATELECTASIS VERSUS PNEUMONIA. 3. PATCHY AIRSPACE DISEASE SCATTERED THROUGHOUT THE RIGHT UPPER LOBE AND RIGHT LOWER LOBE. 4. DENSE CONSOLIDATION AND COLLAPSE OF THE RIGHT MIDDLE LOBE WITH AIR BRONCHOGRAMS. COMMENT: Quality ID # [id number]: Final reports with documentation of one or more dose reduction techniques (e.g., Automated exposure control, adjustment of the mA and/or kV according to patient size, use of iterative reconstruction technique) TECHNICAL DOCUMENTATION: JOB ID: [id number] [employer]- All Rights Reserved Reading location - IP/workstation name: [email or web address]
[2018-01-02] MEDS: FAMOTIDINE 20 MG TABLET PO SCH ×2 (13:29→21:55)
[2018-01-02] MEDS: NIFEDIPINE 30 MG TAB.ER.24 PO SCH ×2 (13:29→21:56)
[2018-01-02] MEDS: DOCUSATE SODIUM 100 MG CAPSULE PO SCH (13:29)
--- NOTE | 2018-01-02 13:31 | Operative Report ---
Bedside Procedure - History of Present Illness Indication for Procedure: Poor venous access Date: 01/02/18 Surgeon: VERONIQUE CHO - Central Line Right Internal jugular Time completed: 12:00 Consent obtained: Yes Central line pre-insertion: Sterile PPE donned Central line lumen type: Triple Anesthetic type: 1% Lidocaine Ultrasound guided: Yes Line secured with sutures: Yes Central line post-insertion: Blood return from lumens, Biopatch applied, Sutured , Sterile dressing applied, Position confirmed w/ CXR Complications: No
[2018-01-02 13:59] LABS: ANION GAP 16 (5-19); BLOOD UREA NITROGEN 28 mg/dL (7-20); CALCIUM 8.6 mg/dL (8.4-10.2); CARBON DIOXIDE 23 mmol/L (22-30); CHLORIDE 95 mmol/L (98-107); GLUCOSE 147 mg/dL (75-110); POTASSIUM 4.3 mmol/L (3.6-5.0); SODIUM 134.2 mmol/L (137-145)
--- NOTE | 2018-01-02 15:20 | XCELERA REPORT ---
[address] [address] Transthoracic Echocardiogram Report Name: JUANJOSE DURAN Age: 67 yrs Gender: Female : 1950 Patient Status: Inpatient Patient Location: ICU^606^A Study Date: 01/02/2018 11:14 AM Height: 65 in Weight: 162 lb BSA: 1.8 m2 Procedure: A two-dimensional transthoracic echocardiogram with color flow Doppler was performed. Study Quality: Fair. Reason For Study: CHF History: CHF. Ordering Physician: ENID PEMBERTON Performed By: Genna Colbert Interpretation Summary The left ventricle is borderline dilated. There is normal left ventricular wall thickness. LV EF is 35% Left ventricular systolic function is moderately reduced. There is moderate global hypokinesis of the left ventricle. There is no thrombus. The left atrium is moderately dilated. The interatrial septum is intact with no evidence for an atrial septal defect. There is mild to moderate mitral annular calcification. There is no evidence of mitral valve prolapse. There is no mitral valve stenosis. There is a severe amount of mitral regurgitation There is no aortic valvular vegetation. There is no aortic valve stenosis There is aortic sclerosis without aortic stenosis. There is no tricuspid stenosis. There is a moderate amount of tricuspid regurgitation There is servere pulmonary hypertension by echo RVSP is 6 to 67 mm of Hg , with RA mean of 10 to 15. There is a trace amount of pulmonic regurgitation The aortic root is normal size. The inferior vena cava appeared normal and decreased < 50% with respiration (RAP 10-15 mmHg) There is no pericardial effusion. MMode/2D Measurements & Calculations RVDd: 2.9 cm LVIDd: 5.7 cm FS: 21.1 % Ao root diam: 2.2 cm IVSd: 0.99 cm LVIDs: 4.5 cm EDV(Teich): 157.5 ml Ao root area: 3.9 cm2 LVPWd: 0.93 cm ESV(Teich): 90.8 ml LA dimension: 4.7 cm EF(Teich): 42.3 % Doppler Measurements & Calculations MV E max janny: MV P1/2t max janny: Ao V2 max: LV V1 max P.1 cm/sec 143.6 cm/sec 103.3 cm/sec 3.0 mmHg MV A max janny: MV P1/2t: 51.4 msec Ao max PG: LV V1 max: 96.3 cm/sec MVA(P1/2t): 4.3 cm2 4.3 mmHg 85.9 cm/sec MV E/A: 1.5 MV dec slope: 818.2 cm/sec2 MV dec time: 0.16 sec PA V2 max: PI end-d janny: TR max janny: MV P1/2t-pr_phl: 67.1 cm/sec 219.9 cm/sec 359.7 cm/sec 51.4 msec PA max P.8 mmHg TR max P.8 mmHg Left Ventricle The left ventricle is borderline dilated. There is normal left ventricular wall thickness. LV EF is 35%. Left ventricular systolic function is moderately reduced. There is moderate global hypokinesis of the left ventricle. There is no thrombus. There is no ventricular septal defect visualized. Right Ventricle The right ventricle is normal in size and function. Atria The right atrium is normal. The left atrium is moderately dilated. The interatrial septum is intact with no evidence for an atrial septal defect. Mitral Valve There is mild to moderate mitral annular calcification. There is no evidence of mitral valve prolapse. There is no vegetation seen on the mitral valve. There is no mitral valve stenosis. There is a severe amount of mitral regurgitation. Aortic Valve There is no aortic valvular vegetation. There is no aortic valve stenosis. There is aortic sclerosis without aortic stenosis. No aortic regurgitation is present. Tricuspid Valve There is no tricuspid stenosis. There is a moderate amount of tricuspid regurgitation. There is servere pulmonary hypertension by echo. RVSP is 6 to 67 mm of Hg , with RA mean of 10 to 15. Pulmonic Valve There is no pulmonic valvular stenosis. There is a trace amount of pulmonic regurgitation. Great Vessels The aortic root is normal size. The inferior vena cava appeared normal and decreased < 50% with respiration (RAP 10-15 mmHg). Effusions There is no pericardial effusion. : ENID PEMBERTON > Mare Joseph
[2018-01-02] MEDS: MEROPENEM 500 MG in NORMAL SALINE 50 ML IV SCH ×2 (16:45→21:55)
[2018-01-02] MEDS: METHYLPREDNISOLONE INJ 125 MG/2 ML SDV IV SCH ×2 (16:45→21:54)
--- NOTE | 2018-01-02 17:30 | PDOC CONSULTATION ---
Consultation Consult Date: 01/02/18 Consult reason:: Acute hemodialysis History of Present Illness Admission Date/PCP: 01/01/18 15:36 SHIRA MONK PA-C History of Present Illness: JUANJOSE DURAN is a 67 year old female with history of hypertension, COPD, ESRD on hemodialysis comes in with history of progressive shortness of breath. Her complaints began yesterday in the morning. Her previous dialysis was on Monday which was uneventful. Evaluations in the ER revealed that she had right-sided pneumonia and was admitted for further evaluations and treatment. She gives a preceding history of acute bronchitis for which her previous primary care Dr. Wiley treated her with oral antibiotics. As I see her on the floor she is quite short of breath and severe distress and is on BiPAP but still struggling. She has been treated appropriately for COPD with multiple nebulizers and steroids but has not produced any desired benefits. Discussed with the treating nurse. Labs and medications were reviewed with the patient and the and the nurse. Past Medical History Cardiac Medical History: Reports: Hypertension-primary Pulmonary Medical History: Reports: Asthma, Bronchitis, Chronic Obstructive Pulmonary Disease (COPD) Renal/ Medical History: Reports: End Stage Renal Disease, Secondary Hyperparathyroidism Denies: Benign Prostatic Hyperplasia GI Medical History: Denies: Cirrhosis, Gastroesophageal Reflux Disease, Hepatitis, Hiatal Hernia Musculoskeltal Medical History: Reports: Arthritis Psychiatric Medical History: Denies: Bipolar Disorder, Depression Hematology Medical History: Reports Anemia of Chronic Kidney Disease Past Surgical History Past Surgical History: Reports: Hysterectomy, Other - PermCath insertion. First stage left transposed brachial vein fistula. Denies: Mastectomy, Pacemaker Social History Smoking Status: Former Smoker Frequency of Alcohol Use: None Hx Recreational Drug Use: No Drugs: None Hx Prescription Drug Abuse: No - Advance Directive Resuscitation Status: Full Code Family History Parental Family History Reviewed: Yes - Negative for ESRD Children Family History Reviewed: No Sibling(s) Family History Reviewed.: No Medication/Allergy Home Medications: Albuterol Sulfate [Proair HFA Inhalation Aerosol 8.5 gm MDI] 2 puff IH Q6HP PRN 10/21/14 Metoprolol Tartrate 100 mg PO BID 10/21/14 Hydralazine HCl 100 mg PO TID 02/07/15 Nifedipine [Procardia XL 30 mg Tablet] 60 mg PO Q12 07/30/15 Budesonide/Formoterol Fumarate [Symbicort 160-4.5 Mcg Inhaler] 2 puff IH BID 12/21 Clonidine HCl [Catapres 0.3 mg Tablet] 0.3 mg PO TID 01/01/18 Allergies/Adverse Reactions: pseudoephedrine HCl [From Sudafed] Allergy (Intermediate, Verified 11/11/17 09: 11) Tongue Swelling aspirin [Aspirin] Allergy (Verified 11/11/17 09:11) Penicillins Allergy (Verified 11/11/17 09:11) KI Inhibitors [Ki Inhibitors] Adverse Reaction (Intermediate, Verified 09:11) Angioedema Review of Systems Constitutional: PRESENT: fatigue, night sweats. ABSENT: chills, fever(s), headache(s) Nose, Mouth, and Throat: ABSENT: mouth pain, sore throat Cardiovascular: PRESENT: dyspnea on exertion, edema, orthropnea. ABSENT: chest pain Gastrointestinal: ABSENT: abdominal pain, diarrhea, dysphagia, heartburn, hematemesis, hematochezia Neurological: ABSENT: confusion, convulsions, focal weakness Psychiatric: PRESENT: anxiety. ABSENT: depression Hematologic/Lymphatic: ABSENT: easy bruising, lymphadenopathy Physical Exam Vital Signs: Temp Pulse Resp BP Pulse Ox 97.6 F 77 22 H 164/76 H 100 01/02/18 14:00 01/02/18 14:00 01/02/18 14:10 01/02/18 14:10 01/02/18 14:10 Intake & Output 01/01/18 01/02/18 01/03/18 06:59 06:59 06:59 Intake Total 500 Output Total 0 0 Balance 500 0 Weight 73.6 kg General appearance: PRESENT: severe distress Eye exam: PRESENT: conjunctiva pink, EOMI, nystagmus, PERRLA Ear exam: PRESENT: normal external ear exam Mouth exam: PRESENT: moist, neck supple Neck exam: ABSENT: lymphadenopathy, meningismus, tenderness, thyromegaly, tracheal deviation Respiratory exam: PRESENT: clear to auscultation stella, crackles, rhonchi, symmetrical. ABSENT: stridor Cardiovascular exam: PRESENT: +S1, +S2, systolic murmur GI/Abdominal exam: PRESENT: normal bowel sounds, soft. ABSENT: organomegaly, tenderness Extremities exam: PRESENT: +1 edema Neurological exam: PRESENT: altered, oriented to person Psychiatric exam: PRESENT: agitated, anxious Skin exam: ABSENT: cyanosis, erythema, mottled, rash Results Laboratory Results: 01/02/18 04:43 01/02/18 13:20 01/01/18 01/02/18 01/02/18 21:30 04:43 04:43 WBC 6.2 RBC 3.07 L Hgb 9.1 L Hct 26.8 L MCV 87 MCH 29.7 MCHC 34.0 RDW 16.1 H Plt Count 141 L Seg Neutrophils % 91.8 H Lymphocytes % 5.4 L Monocytes % 2.5 L Eosinophils % 0.1 Basophils % 0.2 Absolute Neutrophils 5.7 Absolute Lymphocytes 0.3 L Absolute Monocytes 0.2 Absolute Eosinophils 0.0 Absolute Basophils 0.0 Carbonic Acid 1.29 HCO3/H2CO3 Ratio 19:1 ABG pH 7.39 ABG pCO2 43.0 ABG pO2 41.5 L ABG HCO3 25.7 H ABG O2 Saturation 76.6 L ABG Base Excess 0.7 FiO2 45% Sodium 134.7 L Potassium 3.7 Chloride 96 L Carbon Dioxide 23 Anion Gap 16 BUN 26 H Creatinine 5.37 H Est GFR ( Amer) 10 L Est GFR (Non-Af Amer) 8 L Glucose 98 Calcium 8.9 Magnesium 1.8 01/02/18 01/02/18 10:00 13:20 WBC RBC Hgb Hct MCV MCH MCHC RDW Plt Count Seg Neutrophils % Lymphocytes % Monocytes % Eosinophils % Basophils % Absolute Neutrophils Absolute Lymphocytes Absolute Monocytes Absolute Eosinophils Absolute Basophils Carbonic Acid 1.19 HCO3/H2CO3 Ratio 20:1 ABG pH 7.40 ABG pCO2 39.5 ABG pO2 58.6 L ABG HCO3 23.8 ABG O2 Saturation 90.4 L ABG Base Excess -0.9 FiO2 50% Sodium 134.2 L Potassium 4.3 Chloride 95 L Carbon Dioxide 23 Anion Gap 16 BUN 28 H Creatinine 5.47 H Est GFR ( Amer) 9 L Est GFR (Non-Af Amer) 8 L Glucose 147 H Calcium 8.6 Magnesium 1.9 01/02/18 01/02/18 10:55 13:20 Troponin I 0.031 NT-Pro-B Natriuret Pep [id number] H Impressions: Chest X-Ray 01/02/18 00:00 IMPRESSION: NO PNEUMOTHORAX FOLLOWING CENTRAL LINE PLACEMENT. NO SIGNIFICANT CHANGE. Chest/Abdomen CTA 10/30/18 00:00 IMPRESSION: 1. NORMAL CTA OF THE CHEST. NO PULMONARY EMBOLI. 2. MODERATE BILATERAL PLEURAL EFFUSIONS, RIGHT GREATER THAN LEFT. PATCHY CONSOLIDATION IN BOTH LUNG BASES MAY BE DUE TO ATELECTASIS VERSUS PNEUMONIA. 3. PATCHY AIRSPACE DISEASE SCATTERED THROUGHOUT THE RIGHT UPPER LOBE AND RIGHT LOWER LOBE. 4. DENSE CONSOLIDATION AND COLLAPSE OF THE RIGHT MIDDLE LOBE WITH AIR BRONCHOGRAMS. Assessment & Plan - Diagnosis (1) Acute hypoxemic respiratory failure Is this a current diagnosis for this admission?: Yes Plan: Patient is in severe distress.She is struggling on BiPAP and seems to be decompensating. Discussed with the treating nurse. Administer IV Solu-Medrol 125 now. Transfer to ICU for possible intubation as well as initiation of dialysis urgently. (2) COPD exacerbation Plan: Administer stat Solu-Medrol. Further treatments to come from hospitalist. (3) Pneumonia Qualifiers: Pneumonia type: due to unspecified organism Laterality: right Lung location: lower lobe of lung Qualified Code(s): J18.1 - Lobar pneumonia, unspecified organism Is this a current diagnosis for this admission?: Yes Plan: On antibiotics. Monitor. (4) End stage renal disease on dialysis Is this a current diagnosis for this admission?: Yes Plan: Patient was seen subsequently on dialysis after being transferred to the ICU.Dialysis orders were reviewed with the treating dialysis nurse. Appropriate bath has been ordered. Erythropoietin has been ordered. Plan to remove between 4 and 5 L as tolerated. Will monitor closely. (5) Hypertension Qualifiers: Hypertension type: unspecified Qualified Code(s): I10 - Essential (primary ) hypertension Is this a current diagnosis for this admission?: Yes Plan: Uncontrolled. See response to dialysis and fluid removal. Monitor closely.
[2018-01-02] MEDS: AZITHROMYCIN 500 MG in DEXTROSE 5%-WATER 250 ML IV SCH (18:36)
--- NOTE | 2018-01-02 19:15 | RADIOLOGY REPORT (SQ) ---
EXAM DESCRIPTION: CHEST SINGLE VIEW COMPLETED DATE/TIME: 01/02/2018 6:52 pm REASON FOR STUDY: post dialysis COMPARISON: 01/02/2018 CTA chest 01/02/2018 EXAM PARAMETERS: NUMBER OF VIEWS: One view. TECHNIQUE: Single frontal radiographic view of the chest acquired. RADIATION DOSE: NA LIMITATIONS: None. FINDINGS: LUNGS AND PLEURA: Considerable opacification in the lung bases and in the right upper lobe . The left upper lobe and lingula are clear. MEDIASTINUM AND HILAR STRUCTURES: No masses. Contour normal. HEART AND VASCULAR STRUCTURES: Heart normal in size. Normal vasculature. BONES: No acute findings. HARDWARE: Right internal jugular catheter has its tip near the right atrium. Left axillary artery st ent is present. OTHER: No other significant finding. IMPRESSION: Considerable bibasilar opacification suggesting pneumonia versus atelectasis. Cannot ex clude right upper lobe pneumonia as well. TECHNICAL DOCUMENTATION: JOB ID: [id number] [employer]- All Rights Reserved Reading location - IP/workstation name: [email or web address]
[2018-01-03] MEDS: METHYLPREDNISOLONE INJ 125 MG/2 ML SDV IV SCH ×3 (05:39→21:33)
[2018-01-03] MEDS: HYDRALAZINE HCL 50 MG TABLET PO SCH ×3 (05:39→21:32)
[2018-01-03] MEDS: METOPROLOL TARTRATE 100 MG TABLET PO SCH (05:39)
[2018-01-03] MEDS: CLONIDINE HCL 0.1 MG TABLET PO SCH ×3 (05:39→21:34)
[2018-01-03] MEDS: HEPARIN SOD (PORCINE) 5,000 UNIT/ML 1 ML SYRINGE SUBCUT SCH ×3 (05:40→21:34)
[2018-01-03 06:08] LABS: HEMOGLOBIN 9.4 g/dL (12.0-15.5); MEAN CORPUSCULAR HEMOGLOBIN 30.3 pg (27.0-33.4); MEAN CORPUSCULAR HGB CONC 34.8 g/dL (32.0-36.0); MEAN CORPUSCULAR VOLUME 87 fl (80-97); PLATELET COUNT 136 10^3/uL (150-450); RED CELL DISTRIBUTION WIDTH 16.6 % (11.5-14.0)
[2018-01-03 06:18] LABS: ANION GAP 13 (5-19); BLOOD UREA NITROGEN 20 mg/dL (7-20); CALCIUM 8.9 mg/dL (8.4-10.2); CARBON DIOXIDE 29 mmol/L (22-30); CHLORIDE 98 mmol/L (98-107); GLUCOSE 108 mg/dL (75-110); POTASSIUM 3.5 mmol/L (3.6-5.0); SODIUM 140.2 mmol/L (137-145)
[2018-01-03 06:25] LABS: ABSOLUTE LYMPHOCYTES# (MANUAL) 0.4 10^3/uL (0.5-4.7); ABSOLUTE MONOCYTES # (MANUAL) 0.1 10^3/uL (0.1-1.4); ABSOLUTE NEUTROPHILS# (MANUAL) 7.5 10^3/uL (1.7-8.2); BASOPHILS % (MANUAL) 0 % (0-2); EOSINOPHILS % (MANUAL) 0 % (0-6); LYMPHOCYTES % (MANUAL) 5 % (13-45); MONOCYTES % (MANUAL) 1 % (3-13); SEGMENTED NEUTROPHILS % (MAN) 94 % (42-78); TOTAL CELLS COUNTED 100
[2018-01-03 06:27] LABS: ANISOCYTOSIS 1+; HYPOCHROMASIA SLIGHT; PLATELET COMMENT DECREASED; POIKILOCYTOSIS SLIGHT; SCHISTOCYTES SLIGHT; TARGET CELLS SLIGHT
--- NOTE | 2018-01-03 08:20 | RADIOLOGY REPORT (SQ) ---
EXAM DESCRIPTION: CHEST SINGLE VIEW COMPLETED DATE/TIME: 01/03/2018 8:09 am REASON FOR STUDY: pneumonia f/u COMPARISON: 01/02/2018. EXAM PARAMETERS: NUMBER OF VIEWS: One view. TECHNIQUE: Single frontal radiographic view of the chest acquired. RADIATION DOSE: NA LIMITATIONS: None. FINDINGS: LUNGS AND PLEURA: Dense infiltrate in the right lung base and patchy infiltrate in the lef t lung base unchanged. Bilateral pleural effusions unchanged. MEDIASTINUM AND HILAR STRUCTURES: No masses. Contour normal. HEART AND VASCULAR STRUCTURES: Heart normal in size. Normal vasculature. BONES: No acute findings. HARDWARE: Central line. Left axillary stent. OTHER: No other significant finding. IMPRESSION: NO CHANGE IN APPEARANCE OF THE CHEST. TECHNICAL DOCUMENTATION: JOB ID: [id number] [employer]- All Rights Reserved Reading location - IP/workstation name: [email or web address]
--- NOTE | 2018-01-03 08:20 | EKG REPORT ---
SEVERITY:- ABNORMAL ECG - SINUS RHYTHM VENTRICULAR TRIGEMINY PROBABLE LEFT ATRIAL ABNORMALITY PROBABLE LEFT VENTRICULAR HYPERTROPHY : Confirmed by: Mare Joseph MD 03-Jan-2018 08:19:32
[2018-01-03] MEDS: FAMOTIDINE 20 MG TABLET PO SCH ×2 (09:12→21:33)
[2018-01-03] MEDS: NIFEDIPINE 30 MG TAB.ER.24 PO SCH ×2 (09:12→21:33)
[2018-01-03] MEDS: DOCUSATE SODIUM 100 MG CAPSULE PO SCH (09:12)
[2018-01-03] MEDS ORDERED: VANCOMYCIN HCL 0 MG in DEXTROSE 5%-WATER 250 ML IV NR (09:15)
[2018-01-03] MEDS: MEROPENEM 500 MG in NORMAL SALINE 50 ML IV SCH ×2 (09:18→21:33)
--- NOTE | 2018-01-03 09:24 | PDOC PROGRESS REPORT ---
Subjective Progress Note for:: 01/03/18 Subjective:: Patient is a 67-year-old female that presents to the emergency department for chief complaint of respiratory distress. She had acute onset of respiratory distress this morning. EMS found her on her front porch and reports she was 89% on room air and appeared to be very tachypneic. Patient was placed on BiPAP for increased work of breathing and hypoxia by EMS prior to arrival. She states her shortness of breath started when she woke up, she denied any shortness of breath yesterday. She does have COPD and has been using home albuterol. She received DuoNeb and Solu-Medrol by EMS and states that did give her improvement of her symptoms. She denies any associated diaphoresis, nausea, vomiting and chest pain. She denies history of needing intubated in the past Patient remains on BiPAP. Comfortable saturations in the high 90s. White count remains normal with left shift afebrile. Chest x-ray essentially unchanged from yesterday showing significant right lung infiltrates with middle lobe consolidation. Patient currently on azithromycin and meropenem had received vancomycin in the ER at dialysis yesterday. Reason For Visit: PNEUMONIA, ACUTE HYPOXEMIC RESPIRATORY FAILURE Physical Exam Vital Signs: Temp Pulse Resp BP Pulse Ox 97.5 F 62 21 H 161/59 H 100 01/03/18 08:00 01/03/18 08:28 01/03/18 08:28 01/03/18 08:00 01/03/18 08:28 Intake & Output 01/02/18 01/03/18 01/04/18 06:59 06:59 06:59 Intake Total 500 350 Output Total 0 0 Balance 500 350 Weight 73.6 kg 64.4 kg General appearance: PRESENT: no acute distress, well-developed, well-nourished Head exam: PRESENT: atraumatic, normocephalic Neck exam: ABSENT: carotid bruit, JVD, lymphadenopathy, thyromegaly Respiratory exam: PRESENT: accessory muscle use, clear to auscultation stella, crackles - Right, rales - Right, wheezes. ABSENT: rhonchi Cardiovascular exam: PRESENT: RRR. ABSENT: diastolic murmur, rubs, systolic murmur GI/Abdominal exam: PRESENT: normal bowel sounds, soft. ABSENT: distended, guarding, mass, organolmegaly, rebound, tenderness Extremities exam: PRESENT: full ROM, +1 edema. ABSENT: calf tenderness, clubbing, pedal edema Results Laboratory Results: 01/03/18 05:50 01/03/18 05:50 01/02/18 01/02/18 01/03/18 10:00 13:20 05:50 WBC RBC Hgb Hct MCV MCH MCHC RDW Plt Count Seg Neutrophils % Lymphocytes % Monocytes % Eosinophils % Basophils % Absolute Neutrophils Absolute Lymphocytes Absolute Monocytes Absolute Eosinophils Absolute Basophils Carbonic Acid 1.19 HCO3/H2CO3 Ratio 20:1 ABG pH 7.40 ABG pCO2 39.5 ABG pO2 58.6 L ABG HCO3 23.8 ABG O2 Saturation 90.4 L ABG Base Excess -0.9 FiO2 50% Sodium 134.2 L 140.2 Potassium 4.3 3.5 L Chloride 95 L 98 Carbon Dioxide 23 29 Anion Gap 16 13 BUN 28 H 20 Creatinine 5.47 H 3.66 H Est GFR ( Amer) 9 L 15 L Est GFR (Non-Af Amer) 8 L 12 L Glucose 147 H 108 Calcium 8.6 8.9 Magnesium 1.9 01/03/18 05:50 WBC 8.0 RBC 3.10 L Hgb 9.4 L Hct 27.0 L MCV 87 MCH 30.3 MCHC 34.8 RDW 16.6 H Plt Count 136 L Seg Neutrophils % Not Reportable Lymphocytes % Not Reportable Monocytes % Not Reportable Eosinophils % Not Reportable Basophils % Not Reportable Absolute Neutrophils Not Reportable Absolute Lymphocytes Not Reportable Absolute Monocytes Not Reportable Absolute Eosinophils Not Reportable Absolute Basophils Not Reportable Carbonic Acid HCO3/H2CO3 Ratio ABG pH ABG pCO2 ABG pO2 ABG HCO3 ABG O2 Saturation ABG Base Excess FiO2 Sodium Potassium Chloride Carbon Dioxide Anion Gap BUN Creatinine Est GFR ( Amer) Est GFR (Non-Af Amer) Glucose Calcium Magnesium 01/02/18 01/02/18 01/03/18 10:55 13:20 05:50 Troponin I 0.031 NT-Pro-B Natriuret Pep [id number] H [id number] H Impressions: Chest/Abdomen CTA 01/02/18 00:00 IMPRESSION: 1. NORMAL CTA OF THE CHEST. NO PULMONARY EMBOLI. 2. MODERATE BILATERAL PLEURAL EFFUSIONS, RIGHT GREATER THAN LEFT. PATCHY CONSOLIDATION IN BOTH LUNG BASES MAY BE DUE TO ATELECTASIS VERSUS PNEUMONIA. 3. PATCHY AIRSPACE DISEASE SCATTERED THROUGHOUT THE RIGHT UPPER LOBE AND RIGHT LOWER LOBE. 4. DENSE CONSOLIDATION AND COLLAPSE OF THE RIGHT MIDDLE LOBE WITH AIR BRONCHOGRAMS. Chest X-Ray 01/03/18 00:00 IMPRESSION: NO CHANGE IN APPEARANCE OF THE CHEST. Assessment & Plan - Diagnosis (1) Acute hypoxemic respiratory failure Is this a current diagnosis for this admission?: Yes Plan: Dr. Yanez has been consulted. Continue BiPAP. ABG in the a.m. continue current pulmonary toilet (2) Pneumonia Qualifiers: Pneumonia type: due to unspecified organism Laterality: right Lung location: lower lobe of lung Qualified Code(s): J18.1 - Lobar pneumonia, unspecified organism Is this a current diagnosis for this admission?: Yes Plan: Continue meropenem and azithromycin. Patient has worsening of her infiltrate now upper and lower lobe with middle lobe consolidation. We will add vancomycin due to the severity and the speed at which the patient's infiltrates have spread. Cultures pending (3) Exacerbation of asthma Is this a current diagnosis for this admission?: Yes Plan: Continue nebulizing treatments every 4 hours while awake IV Solu-Medrol 80 every 8 hour. Begin to taper steroids in 24 hours (4) Hypertension Qualifiers: Hypertension type: unspecified Qualified Code(s): I10 - Essential (primary ) hypertension Is this a current diagnosis for this admission?: Yes Plan: Mild systolic hypertension continue to monitor no change in medication (5) Anemia, chronic renal failure Is this a current diagnosis for this admission?: Yes Plan: Stable secondary to end-stage renal disease (6) End stage renal disease on dialysis Is this a current diagnosis for this admission?: Yes Plan: Dr. Diane is been consulted analysis as per nephrology - Time Time Spent with patient: 25-34 minutes Anticipated discharge: Home
--- NOTE | 2018-01-03 11:25 | PDOC CONSULTATION ---
Consultation Consult Date: 01/02/18 Attending physician:: ENID PEMBERTON Consult reason:: dyspnea History of Present Illness Admission Date/PCP: 01/01/18 15:36 SHIRA MONK PA-C History of Present Illness: JUANJOSE DURAN is a 67 year old female, per reports patient became acutely short of breath approximately 8 hours before her dialysis was dunes progressed to the point where she was transferred to the ICU subsequent chest x-ray showed an opacification in the right hemithorax patient is currently on BiPAP 21/10 with a respiratory rate of 28 her mental status is good and she is tachycardic but otherwise vital signs are stable. She is scheduled to have a CTA to rule out PE due to the abrupt onset of her dyspnea Past Medical History Cardiac Medical History: Reports: Hypertension Pulmonary Medical History: Reports: Asthma, Bronchitis, Chronic Obstructive Pulmonary Disease (COPD) Renal/ Medical History: Reports: End Stage Renal Disease GI Medical History: Denies: Cirrhosis, Gastroesophageal Reflux Disease, Hepatitis, Hiatal Hernia Musculoskeltal Medical History: Reports: Arthritis Psychiatric Medical History: Denies: Bipolar Disorder, Depression Hematology: Denies: Anemia, Sickle Cell Disease, Bleeding Tendencies Past Surgical History Past Surgical History: Reports: Hysterectomy, Other - PermCath insertion. First stage left transposed brachial vein fistula. Denies: Amputation, Mastectomy, Pacemaker Social History Information Source: Patient Smoking Status: Former Smoker Passive smoke exposure as: Both Frequency of Alcohol Use: None Hx Recreational Drug Use: No Drugs: None Hx Prescription Drug Abuse: No Have you had any respiratory illnesses as a child?: No Have you been exposed to any sick contacts recently?: No Have you had any recent respiratory illnesses?: No Have you travelled outside of [place] in the past 12 months?: No - Advance Directive Resuscitation Status: Full Code Family History Family History: CAD, Malignancy - Colorectal cancer, Other - Cardiomyopathy mother Parental Family History Reviewed: Yes Children Family History Reviewed: Yes Sibling(s) Family History Reviewed.: Yes Medication/Allergy Home Medications: Albuterol Sulfate [Proair HFA Inhalation Aerosol 8.5 gm MDI] 2 puff IH Q6HP PRN 10/21/14 Metoprolol Tartrate 100 mg PO BID 10/21/14 Hydralazine HCl 100 mg PO TID 02/07/15 Nifedipine [Procardia XL 30 mg Tablet] 60 mg PO Q12 07/30/15 Budesonide/Formoterol Fumarate [Symbicort 160-4.5 Mcg Inhaler] 2 puff IH BID 12/21 Clonidine HCl [Catapres 0.3 mg Tablet] 0.3 mg PO TID 01/01/18 Allergies/Adverse Reactions: pseudoephedrine HCl [From Sudafed] Allergy (Intermediate, Verified 11/11/17 09: 11) Tongue Swelling aspirin [Aspirin] Allergy (Verified 11/11/17 09:11) Penicillins Allergy (Verified 11/11/17 09:11) KI Inhibitors [Ki Inhibitors] Adverse Reaction (Intermediate, Verified 09:11) Angioedema Review of Systems Constitutional: PRESENT: fatigue, fever(s). ABSENT: chills, headache(s), night sweats Eyes: ABSENT: visual disturbances Ears: ABSENT: hearing changes Nose, Mouth, and Throat: ABSENT: mouth pain, sore throat Cardiovascular: PRESENT: dyspnea on exertion, orthropnea. ABSENT: palpitations Respiratory: PRESENT: cough, dyspnea. ABSENT: hemoptysis, sputum Gastrointestinal: ABSENT: abdominal pain, bloating, coffee ground emesis, diarrhea, dysphagia, hematemesis, hematochezia, melena Genitourinary: ABSENT: hematuria, nocturia Musculoskeletal: ABSENT: deformity, joint swelling Integumentary: ABSENT: pruritus, rash Neurological: ABSENT: abnormal gait, abnormal speech, confusion, focal weakness , frequent falls, memory loss Psychiatric: ABSENT: hallucinations, homidical ideation, suicidal ideation Endocrine: ABSENT: cold intolerance, heat intolerance Hematologic/Lymphatic: ABSENT: lymphadenopathy Allergic/Immunologic: ABSENT: seasonal rhinorrhea Physical Exam Vital Signs: Temp Pulse Resp BP Pulse Ox 97.2 F 75 23 H 177/90 H 100 01/02/18 12:00 01/02/18 12:00 01/02/18 12:00 01/02/18 12:00 01/02/18 12:00 Intake & Output 01/01/18 01/02/18 01/03/18 06:59 06:59 06:59 Intake Total 500 Output Total 0 0 Balance 500 0 Weight 73.6 kg General appearance: PRESENT: no acute distress, cooperative, disheveled, well- developed, well-nourished Head exam: PRESENT: atraumatic, normocephalic Eye exam: PRESENT: conjunctiva pale, EOMI. ABSENT: nystagmus, periorbital swelling, scleral icterus Mouth exam: PRESENT: dry mucosa, neck supple, tongue midline Neck exam: ABSENT: carotid bruit, JVD, lymphadenopathy, thyromegaly, tracheal deviation, tracheostomy Respiratory exam: PRESENT: crackles, decreased breath sounds, prolonged expiratory phas, rhonchi, symmetrical, unlabored. ABSENT: retraction, stridor Cardiovascular exam: PRESENT: RRR, +S1, +S2, tachycardia Pulses: PRESENT: normal radial pulses GI/Abdominal exam: PRESENT: soft Gentrourinary exam: PRESENT: indwelling catheter Extremities exam: ABSENT: calf tenderness, clubbing, joint swelling, pedal edema Musculoskeletal exam: ABSENT: deformity, dislocation Neurological exam: PRESENT: alert, awake Psychiatric exam: PRESENT: anxious, normal mood Skin exam: PRESENT: dry, warm Results Laboratory Results: 01/02/18 04:43 01/02/18 04:43 01/01/18 01/02/18 01/02/18 21:30 04:43 04:43 WBC 6.2 RBC 3.07 L Hgb 9.1 L Hct 26.8 L MCV 87 MCH 29.7 MCHC 34.0 RDW 16.1 H Plt Count 141 L Seg Neutrophils % 91.8 H Lymphocytes % 5.4 L Monocytes % 2.5 L Eosinophils % 0.1 Basophils % 0.2 Absolute Neutrophils 5.7 Absolute Lymphocytes 0.3 L Absolute Monocytes 0.2 Absolute Eosinophils 0.0 Absolute Basophils 0.0 Carbonic Acid 1.29 HCO3/H2CO3 Ratio 19:1 ABG pH 7.39 ABG pCO2 43.0 ABG pO2 41.5 L ABG HCO3 25.7 H ABG O2 Saturation 76.6 L ABG Base Excess 0.7 FiO2 45% Sodium 134.7 L Potassium 3.7 Chloride 96 L Carbon Dioxide 23 Anion Gap 16 BUN 26 H Creatinine 5.37 H Est GFR ( Amer) 10 L Est GFR (Non-Af Amer) 8 L Glucose 98 Calcium 8.9 Magnesium 1.8 01/02/18 10:00 WBC RBC Hgb Hct MCV MCH MCHC RDW Plt Count Seg Neutrophils % Lymphocytes % Monocytes % Eosinophils % Basophils % Absolute Neutrophils Absolute Lymphocytes Absolute Monocytes Absolute Eosinophils Absolute Basophils Carbonic Acid 1.19 HCO3/H2CO3 Ratio 20:1 ABG pH 7.40 ABG pCO2 39.5 ABG pO2 58.6 L ABG HCO3 23.8 ABG O2 Saturation 90.4 L ABG Base Excess -0.9 FiO2 50% Sodium Potassium Chloride Carbon Dioxide Anion Gap BUN Creatinine Est GFR ( Amer) Est GFR (Non-Af Amer) Glucose Calcium Magnesium 01/02/18 10:55 Troponin I 0.031 Impressions: Chest X-Ray 01/02/18 00:00 IMPRESSION: NO PNEUMOTHORAX FOLLOWING CENTRAL LINE PLACEMENT. NO SIGNIFICANT CHANGE. Chest/Abdomen CTA 01/02/18 00:00 IMPRESSION: 1. NORMAL CTA OF THE CHEST. NO PULMONARY EMBOLI. 2. MODERATE BILATERAL PLEURAL EFFUSIONS, RIGHT GREATER THAN LEFT. PATCHY CONSOLIDATION IN BOTH LUNG BASES MAY BE DUE TO ATELECTASIS VERSUS PNEUMONIA. 3. PATCHY AIRSPACE DISEASE SCATTERED THROUGHOUT THE RIGHT UPPER LOBE AND RIGHT LOWER LOBE. 4. DENSE CONSOLIDATION AND COLLAPSE OF THE RIGHT MIDDLE LOBE WITH AIR BRONCHOGRAMS. Assessment & Plan - Diagnosis (1) Acute hypoxemic respiratory failure Is this a current diagnosis for this admission?: Yes Plan: Stable on BiPAP thus far fully this will improve with dialysis (2) COPD exacerbation Is this a current diagnosis for this admission?: Yes Plan: Generic Name Dose Route Start Last Admin Trade Name Freq PRN Reason Stop Dose Admin Albuterol/Ipratropium 3 ml 01/01/18 15:36 01/02/18 08:56 Duoneb 3 Ml Ampul NEB 01/31/18 15:35 3 ml [id number] PRN SHORTNESS OF BREATH Methylprednisolone Sodium Succinate 80 mg 01/02/18 14:30 01/03/18 05:39 Solu-Medrol Inj/Pf 125 Mg/2 Ml Sdv IV 02/01/18 14:29 80 mg Q8 ANU (3) End stage renal disease on dialysis Is this a current diagnosis for this admission?: Yes Plan: Continue hemodialysis as per nephrology (4) Hypertension Qualifiers: Hypertension type: unspecified Qualified Code(s): I10 - Essential (primary ) hypertension Is this a current diagnosis for this admission?: Yes - Time Total Critical Time (Minutes): 55
--- NOTE | 2018-01-03 11:28 | PDOC PROGRESS REPORT ---
Subjective Progress Note for:: 01/03/18 Subjective:: Clinically somewhat improved Reason For Visit: PNEUMONIA, ACUTE HYPOXEMIC RESPIRATORY FAILURE Physical Exam Vital Signs: Temp Pulse Resp BP Pulse Ox 97.5 F 62 21 H 161/59 H 100 01/03/18 08:00 01/03/18 08:28 01/03/18 08:28 01/03/18 08:00 01/03/18 08:28 Intake & Output 01/02/18 01/03/18 01/04/18 06:59 06:59 06:59 Intake Total 500 350 Output Total 0 0 Balance 500 350 Weight 73.6 kg 64.4 kg General appearance: PRESENT: no acute distress, cooperative, disheveled Head exam: PRESENT: atraumatic, normocephalic Eye exam: PRESENT: conjunctiva pale, EOMI. ABSENT: nystagmus, periorbital swelling Mouth exam: PRESENT: dry mucosa, neck supple, tongue midline Neck exam: ABSENT: carotid bruit, JVD, lymphadenopathy, thyromegaly, tracheal deviation, tracheostomy Respiratory exam: PRESENT: decreased breath sounds, prolonged expiratory phas, rales, rhonchi, symmetrical, unlabored. ABSENT: retraction, stridor Cardiovascular exam: PRESENT: RRR, +S1, +S2, tachycardia Pulses: PRESENT: normal radial pulses GI/Abdominal exam: PRESENT: soft Gentrourinary exam: PRESENT: indwelling catheter Extremities exam: ABSENT: calf tenderness, clubbing, joint swelling Musculoskeletal exam: ABSENT: deformity, dislocation Neurological exam: PRESENT: awake Psychiatric exam: PRESENT: normal mood Skin exam: PRESENT: dry, warm Results Laboratory Results: 01/03/18 05:50 01/03/18 05:50 01/02/18 01/02/18 01/03/18 10:00 13:20 05:50 WBC RBC Hgb Hct MCV MCH MCHC RDW Plt Count Seg Neutrophils % Lymphocytes % Monocytes % Eosinophils % Basophils % Absolute Neutrophils Absolute Lymphocytes Absolute Monocytes Absolute Eosinophils Absolute Basophils Carbonic Acid 1.19 HCO3/H2CO3 Ratio 20:1 ABG pH 7.40 ABG pCO2 39.5 ABG pO2 58.6 L ABG HCO3 23.8 ABG O2 Saturation 90.4 L ABG Base Excess -0.9 FiO2 50% Sodium 134.2 L 140.2 Potassium 4.3 3.5 L Chloride 95 L 98 Carbon Dioxide 23 29 Anion Gap 16 13 BUN 28 H 20 Creatinine 5.47 H 3.66 H Est GFR ( Amer) 9 L 15 L Est GFR (Non-Af Amer) 8 L 12 L Glucose 147 H 108 Calcium 8.6 8.9 Magnesium 1.9 01/03/18 05:50 WBC 8.0 RBC 3.10 L Hgb 9.4 L Hct 27.0 L MCV 87 MCH 30.3 MCHC 34.8 RDW 16.6 H Plt Count 136 L Seg Neutrophils % Not Reportable Lymphocytes % Not Reportable Monocytes % Not Reportable Eosinophils % Not Reportable Basophils % Not Reportable Absolute Neutrophils Not Reportable Absolute Lymphocytes Not Reportable Absolute Monocytes Not Reportable Absolute Eosinophils Not Reportable Absolute Basophils Not Reportable Carbonic Acid HCO3/H2CO3 Ratio ABG pH ABG pCO2 ABG pO2 ABG HCO3 ABG O2 Saturation ABG Base Excess FiO2 Sodium Potassium Chloride Carbon Dioxide Anion Gap BUN Creatinine Est GFR ( Amer) Est GFR (Non-Af Amer) Glucose Calcium Magnesium 01/02/18 01/02/18 01/03/18 10:55 13:20 05:50 Troponin I 0.031 NT-Pro-B Natriuret Pep [id number] H [id number] H Impressions: Chest/Abdomen CTA 01/02/18 00:00 IMPRESSION: 1. NORMAL CTA OF THE CHEST. NO PULMONARY EMBOLI. 2. MODERATE BILATERAL PLEURAL EFFUSIONS, RIGHT GREATER THAN LEFT. PATCHY CONSOLIDATION IN BOTH LUNG BASES MAY BE DUE TO ATELECTASIS VERSUS PNEUMONIA. 3. PATCHY AIRSPACE DISEASE SCATTERED THROUGHOUT THE RIGHT UPPER LOBE AND RIGHT LOWER LOBE. 4. DENSE CONSOLIDATION AND COLLAPSE OF THE RIGHT MIDDLE LOBE WITH AIR BRONCHOGRAMS. Chest X-Ray 01/03/18 00:00 IMPRESSION: NO CHANGE IN APPEARANCE OF THE CHEST. Assessment & Plan - Diagnosis (1) Acute hypoxemic respiratory failure Is this a current diagnosis for this admission?: Yes Plan: Stable on BiPAP thus far fully this will improve with dialysis:EF 35% mod PHTN (2) COPD exacerbation Is this a current diagnosis for this admission?: Yes Plan: Generic Name Dose Route Start Last Admin Trade Name Freq PRN Reason Stop Dose Admin Albuterol/Ipratropium 3 ml 01/01/18 15:36 01/02/18 08:56 Duoneb 3 Ml Ampul NEB 01/31/18 15:35 3 ml [id number] PRN SHORTNESS OF BREATH Methylprednisolone Sodium Succinate 80 mg 01/02/18 14:30 01/03/18 05:39 Solu-Medrol Inj/Pf 125 Mg/2 Ml Sdv IV 02/01/18 14:29 80 mg Q8 ANU (3) End stage renal disease on dialysis Is this a current diagnosis for this admission?: Yes Plan: Continue hemodialysis as per nephrology - Time Total Critical Time (Minutes): 45
--- NOTE | 2018-01-03 16:31 | PDOC PROGRESS REPORT ---
Subjective Progress Note for:: 01/03/18 Subjective:: Patient was seen today sitting in her bed. At the time the nurse had just woken her up and she appeared to be slight bit agitated. She claims that the SOB has improved, but wants to remain with the bipap on. According to her chest x-ray and chest ct she has large consolidation in her middle right lobe. She denies chest pain, n/v/d/c. Reason For Visit: PNEUMONIA, ACUTE HYPOXEMIC RESPIRATORY FAILURE Physical Exam Vital Signs: Temp Pulse Resp BP Pulse Ox 97.7 F 75 19 167/67 H 96 01/03/18 12:00 01/03/18 14:00 01/03/18 15:00 01/03/18 14:37 01/03/18 15:00 Intake & Output 01/02/18 01/03/18 01/04/18 06:59 06:59 06:59 Intake Total 500 350 Output Total 0 0 Balance 500 350 Weight 73.6 kg 64.4 kg General appearance: PRESENT: no acute distress, well-developed, well-nourished Mouth exam: PRESENT: moist, neck supple Neck exam: PRESENT: full ROM. ABSENT: JVD, tracheal deviation Respiratory exam: PRESENT: crackles, decreased breath sounds. ABSENT: clear to auscultation stella, wheezes Cardiovascular exam: PRESENT: +S1, +S2, systolic murmur GI/Abdominal exam: PRESENT: normal bowel sounds, soft. ABSENT: organomegaly, tenderness Extremities exam: PRESENT: +1 edema. ABSENT: tenderness, +2 edema Musculoskeletal exam: PRESENT: normal inspection. ABSENT: tenderness Neurological exam: PRESENT: alert, awake, oriented to person, oriented to place , oriented to time, oriented to situation Psychiatric exam: PRESENT: appropriate affect, normal mood Skin exam: PRESENT: dry, intact, warm Results Laboratory Results: 01/03/18 05:50 01/03/18 05:50 01/03/18 01/03/18 05:50 05:50 WBC 8.0 RBC 3.10 L Hgb 9.4 L Hct 27.0 L MCV 87 MCH 30.3 MCHC 34.8 RDW 16.6 H Plt Count 136 L Seg Neutrophils % Not Reportable Lymphocytes % Not Reportable Monocytes % Not Reportable Eosinophils % Not Reportable Basophils % Not Reportable Absolute Neutrophils Not Reportable Absolute Lymphocytes Not Reportable Absolute Monocytes Not Reportable Absolute Eosinophils Not Reportable Absolute Basophils Not Reportable Sodium 140.2 Potassium 3.5 L Chloride 98 Carbon Dioxide 29 Anion Gap 13 BUN 20 Creatinine 3.66 H Est GFR ( Amer) 15 L Est GFR (Non-Af Amer) 12 L Glucose 108 Calcium 8.9 01/02/18 01/02/18 01/03/18 10:55 13:20 05:50 Troponin I 0.031 NT-Pro-B Natriuret Pep [id number] H [id number] H Impressions: Chest/Abdomen CTA 01/02/18 00:00 IMPRESSION: 1. NORMAL CTA OF THE CHEST. NO PULMONARY EMBOLI. 2. MODERATE BILATERAL PLEURAL EFFUSIONS, RIGHT GREATER THAN LEFT. PATCHY CONSOLIDATION IN BOTH LUNG BASES MAY BE DUE TO ATELECTASIS VERSUS PNEUMONIA. 3. PATCHY AIRSPACE DISEASE SCATTERED THROUGHOUT THE RIGHT UPPER LOBE AND RIGHT LOWER LOBE. 4. DENSE CONSOLIDATION AND COLLAPSE OF THE RIGHT MIDDLE LOBE WITH AIR BRONCHOGRAMS. Chest X-Ray 01/03/18 00:00 IMPRESSION: NO CHANGE IN APPEARANCE OF THE CHEST. Assessment & Plan - Diagnosis (1) Acute hypoxemic respiratory failure Is this a current diagnosis for this admission?: Yes Plan: improving. on bipap, will look to remove more fluid tomorrow. Also currently on steroids and albuterol inhalers. (2) COPD exacerbation Is this a current diagnosis for this admission?: Yes Plan: on steroids and albuterol inhaler (3) Pneumonia Qualifiers: Pneumonia type: due to unspecified organism Laterality: right Lung location: lower lobe of lung Qualified Code(s): J18.1 - Lobar pneumonia, unspecified organism Is this a current diagnosis for this admission?: Yes Plan: on antibiotics (4) Anemia, chronic renal failure Is this a current diagnosis for this admission?: Yes Plan: giving epogen during dialysis. (5) End stage renal disease on dialysis Is this a current diagnosis for this admission?: Yes Plan: will look to arrange for dialysis tomorrow morning. (6) Hypertension Qualifiers: Hypertension type: unspecified Qualified Code(s): I10 - Essential (primary ) hypertension Is this a current diagnosis for this admission?: Yes Plan: recently had carvedilol added to her medications
[2018-01-03] MEDS: AZITHROMYCIN 500 MG in DEXTROSE 5%-WATER 250 ML IV SCH (17:29)
[2018-01-03] MEDS ORDERED: VANCOMYCIN HCL 750 MG in DEXTROSE 5%-WATER 250 ML IV SCH (18:00)
[2018-01-03] MEDS: CARVEDILOL 12.5 MG TABLET PO SCH (19:13)
[2018-01-04 05:54] LABS: ABSOLUTE LYMPHOCYTES (AUTO) 0.3 10^3/uL (0.5-4.7); ABSOLUTE MONOCYTES (AUTO) 0.2 10^3/uL (0.1-1.4); ABSOLUTE NEUT (AUTO) 5.3 10^3/uL (1.7-8.2); BASOPHILS % (AUTO) 0.3 % (0-2); HEMATOCRIT 25.5 % (36.0-47.0); HEMOGLOBIN 8.7 g/dL (12.0-15.5); LYMPHOCYTES % (AUTO) 5.1 % (13-45); MEAN CORPUSCULAR HGB CONC 34.3 g/dL (32.0-36.0); MEAN CORPUSCULAR VOLUME 88 fl (80-97); MONOCYTES % (AUTO) 3.1 % (3-13); PLATELET COUNT 117 10^3/uL (150-450); RED BLOOD COUNT 2.91 10^6/uL (3.72-5.28); RED CELL DISTRIBUTION WIDTH 16.7 % (11.5-14.0); SEGMENTED NEUTROPHILS % (AUTO) 91.5 % (42-78); TOTAL CELLS COUNTED % (AUTO) 100 %; WHITE BLOOD COUNT 5.8 10^3/uL (4.0-10.5)
[2018-01-04 06:02] LABS: ANION GAP 14 (5-19); BLOOD UREA NITROGEN 29 mg/dL (7-20); CARBON DIOXIDE 26 mmol/L (22-30); CHLORIDE 96 mmol/L (98-107); GLUCOSE 124 mg/dL (75-110); POTASSIUM 3.6 mmol/L (3.6-5.0); SODIUM 136.4 mmol/L (137-145)
[2018-01-04] MEDS: HEPARIN SOD (PORCINE) 5,000 UNIT/ML 1 ML SYRINGE SUBCUT SCH ×4 (06:06→21:39)
[2018-01-04] MEDS: HYDRALAZINE HCL 50 MG TABLET PO SCH ×3 (06:28→21:35)
[2018-01-04] MEDS: METHYLPREDNISOLONE INJ 125 MG/2 ML SDV IV SCH ×2 (06:28→15:11)
[2018-01-04] MEDS: CARVEDILOL 12.5 MG TABLET PO SCH ×2 (06:28→17:40)
[2018-01-04] MEDS: CLONIDINE HCL 0.1 MG TABLET PO SCH ×3 (06:29→21:34)
[2018-01-04] MEDS: IPRATROPIUM/ALBUTEROL 0.5-2.5 MG/3 ML AMPUL NEB PRN (09:03)
[2018-01-04] MEDS: NIFEDIPINE 30 MG TAB.ER.24 PO SCH ×2 (09:29→21:36)
[2018-01-04] MEDS: FAMOTIDINE 20 MG TABLET PO SCH ×2 (10:11→21:36)
[2018-01-04] MEDS: DOCUSATE SODIUM 100 MG CAPSULE PO SCH (10:11)
--- NOTE | 2018-01-04 10:16 | PDOC PROGRESS REPORT ---
Subjective Progress Note for:: 01/04/18 Reason For Visit: Patient seen today in the ICU. She feels better as compared to the last couple of days. Currently she is off the BiPAP and doing relatively well on a nasal cannula. She denies any history of chest pain, fever or chills.Currently she is undergoing dialysis without any issues. Labs and medications were reviewed with the patient. Did also review the echocardiogram which shows decreased LV ejection fraction of 35% with severe pulmonary hypertension. She is also got global hypokinesia. Physical Exam Vital Signs: Temp Pulse Resp BP Pulse Ox 97.8 F 63 40 H 147/65 H 100 01/04/18 01:21 01/04/18 09:03 01/04/18 09:03 01/04/18 06:38 01/04/18 09:03 Intake & Output 01/03/18 01/04/18 01/05/18 06:59 06:59 06:59 Intake Total 350 800 Output Total 0 0 50 Balance 350 800 -50 Weight 64.4 kg General appearance: PRESENT: mild distress Respiratory exam: PRESENT: clear to auscultation stella, crackles. ABSENT: chest wall tenderness, rhonchi Cardiovascular exam: PRESENT: +S1, +S2, systolic murmur GI/Abdominal exam: PRESENT: normal bowel sounds, soft. ABSENT: organomegaly, tenderness Extremities exam: ABSENT: pedal edema Neurological exam: PRESENT: alert, awake, oriented to person, oriented to place , oriented to time Psychiatric exam: PRESENT: anxious Skin exam: ABSENT: cyanosis, erythema, rash Results Laboratory Results: 01/04/18 05:20 01/04/18 05:20 01/04/18 01/04/18 01/04/18 05:20 05:20 05:20 WBC 5.8 RBC 2.91 L Hgb 8.7 L Hct 25.5 L MCV 88 MCH 30.0 MCHC 34.3 RDW 16.7 H Plt Count 117 L Seg Neutrophils % 91.5 H Lymphocytes % 5.1 L Monocytes % 3.1 Eosinophils % 0.0 Basophils % 0.3 Absolute Neutrophils 5.3 Absolute Lymphocytes 0.3 L Absolute Monocytes 0.2 Absolute Eosinophils 0.0 Absolute Basophils 0.0 Carbonic Acid Cancelled HCO3/H2CO3 Ratio Cancelled ABG pH Cancelled ABG pCO2 Cancelled ABG pO2 Cancelled ABG HCO3 Cancelled ABG O2 Saturation Cancelled ABG Base Excess Cancelled FiO2 Cancelled Sodium 136.4 L Potassium 3.6 Chloride 96 L Carbon Dioxide 26 Anion Gap 14 BUN 29 H Creatinine 4.97 H Est GFR ( Amer) 11 L Est GFR (Non-Af Amer) 9 L Glucose 124 H Calcium 9.0 01/02/18 01/02/18 01/03/18 10:55 13:20 05:50 Troponin I 0.031 NT-Pro-B Natriuret Pep [id number] H [id number] H Impressions: Chest/Abdomen CTA 01/02/18 00:00 IMPRESSION: 1. NORMAL CTA OF THE CHEST. NO PULMONARY EMBOLI. 2. MODERATE BILATERAL PLEURAL EFFUSIONS, RIGHT GREATER THAN LEFT. PATCHY CONSOLIDATION IN BOTH LUNG BASES MAY BE DUE TO ATELECTASIS VERSUS PNEUMONIA. 3. PATCHY AIRSPACE DISEASE SCATTERED THROUGHOUT THE RIGHT UPPER LOBE AND RIGHT LOWER LOBE. 4. DENSE CONSOLIDATION AND COLLAPSE OF THE RIGHT MIDDLE LOBE WITH AIR BRONCHOGRAMS. Chest X-Ray 01/03/18 00:00 IMPRESSION: NO CHANGE IN APPEARANCE OF THE CHEST. Assessment & Plan - Diagnosis (1) Acute hypoxemic respiratory failure Is this a current diagnosis for this admission?: Yes Plan: Secondary to severe right-sided pneumonia with component of heart failure which I believe is predominantly from severe pulmonary hypertension rather than from overt left ventricular failure. Currently improving. (2) Pneumonia Qualifiers: Pneumonia type: due to unspecified organism Laterality: right Lung location: lower lobe of lung Qualified Code(s): J18.1 - Lobar pneumonia, unspecified organism Is this a current diagnosis for this admission?: Yes (3) End stage renal disease on dialysis Is this a current diagnosis for this admission?: Yes Plan: Currently undergoing dialysis without any issues. Is being supervised to ensure safe and smooth procedure. Vital signs are stable. Plan to remove between 2 and 3 L as tolerated. Next dialysis will be again again tomorrow. Dialysis orders were reviewed with the treating dialysis nurse. (4) Hypertension Qualifiers: Hypertension type: unspecified Qualified Code(s): I10 - Essential (primary ) hypertension Is this a current diagnosis for this admission?: Yes Plan: Relatively controlled. See response to dialysis. (5) Systolic congestive heart failure Plan: She has got biventricular failure. Needs further evaluation as an outpatient as she would need to have this looked at from a transplant perspective. Currently there is no overt signs of left ventricular failure. (6) Pulmonary hypertension Plan: Will need further evaluation as an outpatient. Continue present lines of management. (7) Anemia, chronic renal failure Is this a current diagnosis for this admission?: Yes Plan: Adjust erythropoietin. Monitor.
[2018-01-04] MEDS: MEROPENEM 500 MG in NORMAL SALINE 50 ML IV SCH ×2 (13:32→21:37)
--- NOTE | 2018-01-04 14:29 | PDOC PROGRESS REPORT ---
Subjective Progress Note for:: 01/04/18 Subjective:: I am better Reason For Visit: PNEUMONIA, ACUTE HYPOXEMIC RESPIRATORY FAILURE Physical Exam Vital Signs: Temp Pulse Resp BP Pulse Ox 97.4 F 61 15 142/73 H 100 01/04/18 12:00 01/04/18 12:00 01/04/18 12:00 01/04/18 11:31 01/04/18 12:00 Intake & Output 01/03/18 01/04/18 01/05/18 06:59 06:59 06:59 Intake Total 350 800 50 Output Total 0 0 50 Balance 350 800 0 Weight 64.4 kg General appearance: PRESENT: no acute distress, cooperative, disheveled, thin, well-developed, well-nourished Head exam: PRESENT: atraumatic, normocephalic Eye exam: PRESENT: conjunctiva pale, EOMI. ABSENT: nystagmus, periorbital swelling, scleral icterus Mouth exam: PRESENT: dry mucosa, neck supple, tongue midline Neck exam: ABSENT: carotid bruit, JVD, lymphadenopathy, thyromegaly, tracheal deviation, tracheostomy Respiratory exam: PRESENT: decreased breath sounds, prolonged expiratory phas, rales, rhonchi, tachypnea, unlabored. ABSENT: retraction, stridor Cardiovascular exam: PRESENT: RRR, +S1, +S2 Pulses: PRESENT: normal radial pulses GI/Abdominal exam: PRESENT: soft Gentrourinary exam: PRESENT: indwelling catheter Extremities exam: ABSENT: calf tenderness, clubbing, joint swelling, pedal edema Musculoskeletal exam: ABSENT: deformity, dislocation Neurological exam: PRESENT: alert, awake Psychiatric exam: PRESENT: normal mood Skin exam: PRESENT: dry, warm Results Laboratory Results: 01/04/18 05:20 01/04/18 05:20 01/04/18 01/04/18 01/04/18 05:20 05:20 05:20 WBC 5.8 RBC 2.91 L Hgb 8.7 L Hct 25.5 L MCV 88 MCH 30.0 MCHC 34.3 RDW 16.7 H Plt Count 117 L Seg Neutrophils % 91.5 H Lymphocytes % 5.1 L Monocytes % 3.1 Eosinophils % 0.0 Basophils % 0.3 Absolute Neutrophils 5.3 Absolute Lymphocytes 0.3 L Absolute Monocytes 0.2 Absolute Eosinophils 0.0 Absolute Basophils 0.0 Carbonic Acid Cancelled HCO3/H2CO3 Ratio Cancelled ABG pH Cancelled ABG pCO2 Cancelled ABG pO2 Cancelled ABG HCO3 Cancelled ABG O2 Saturation Cancelled ABG Base Excess Cancelled FiO2 Cancelled Sodium 136.4 L Potassium 3.6 Chloride 96 L Carbon Dioxide 26 Anion Gap 14 BUN 29 H Creatinine 4.97 H Est GFR ( Amer) 11 L Est GFR (Non-Af Amer) 9 L Glucose 124 H Calcium 9.0 01/02/18 01/02/18 01/03/18 10:55 13:20 05:50 Troponin I 0.031 NT-Pro-B Natriuret Pep [id number] H [id number] H Impressions: Chest/Abdomen CTA 01/02/18 00:00 IMPRESSION: 1. NORMAL CTA OF THE CHEST. NO PULMONARY EMBOLI. 2. MODERATE BILATERAL PLEURAL EFFUSIONS, RIGHT GREATER THAN LEFT. PATCHY CONSOLIDATION IN BOTH LUNG BASES MAY BE DUE TO ATELECTASIS VERSUS PNEUMONIA. 3. PATCHY AIRSPACE DISEASE SCATTERED THROUGHOUT THE RIGHT UPPER LOBE AND RIGHT LOWER LOBE. 4. DENSE CONSOLIDATION AND COLLAPSE OF THE RIGHT MIDDLE LOBE WITH AIR BRONCHOGRAMS. Chest X-Ray 01/03/18 00:00 IMPRESSION: NO CHANGE IN APPEARANCE OF THE CHEST. Assessment & Plan - Diagnosis (1) Acute hypoxemic respiratory failure Is this a current diagnosis for this admission?: Yes Plan: Improving ejection fraction 35% and volume overload due to end-stage renal disease afebrile with no leukocytosis and a normal left shift may lead me to believe that this is not a infectious process (2) COPD exacerbation Is this a current diagnosis for this admission?: Yes Plan: Generic Name Dose Route Start Last Admin Trade Name Freq PRN Reason Stop Dose Admin Albuterol/Ipratropium 3 ml 01/01/18 15:36 01/02/18 08:56 Duoneb 3 Ml Ampul NEB 01/31/18 15:35 3 ml [id number] PRN SHORTNESS OF BREATH Methylprednisolone Sodium Succinate 80 mg 01/02/18 14:30 01/03/18 05:39 Solu-Medrol Inj/Pf 125 Mg/2 Ml Sdv IV 02/01/18 14:29 80 mg Q8 ANU (3) End stage renal disease on dialysis Is this a current diagnosis for this admission?: Yes Plan: Continue hemodialysis as per nephrology - Time Total Critical Time (Minutes): 40
[2018-01-04] MEDS ORDERED: METHYLPREDNISOLONE INJ 125 MG/2 ML SDV IV SCH (15:47)
--- NOTE | 2018-01-04 15:52 | PDOC PROGRESS REPORT ---
Subjective Progress Note for:: 01/04/18 Subjective:: This pleasant 67-year-old female is resting comfortably in bed. She was transitioned to nasal cannula and appears stable. Her breathing does seem reasonably comfortable. She is due for hemodialysis today. Reason For Visit: PNEUMONIA, ACUTE HYPOXEMIC RESPIRATORY FAILURE Physical Exam Vital Signs: Temp Pulse Resp BP Pulse Ox 97.4 F 61 15 142/73 H 100 01/04/18 12:00 01/04/18 12:00 01/04/18 12:00 01/04/18 11:31 01/04/18 12:00 Intake & Output 01/03/18 01/04/18 01/05/18 06:59 06:59 06:59 Intake Total 350 800 50 Output Total 0 0 3050 Balance 350 800 -3000 Weight 64.4 kg General appearance: PRESENT: no acute distress, cooperative, well-developed Head exam: PRESENT: atraumatic, normocephalic Eye exam: PRESENT: conjunctiva pale. ABSENT: scleral icterus Ear exam: PRESENT: normal external ear exam Neck exam: ABSENT: carotid bruit, lymphadenopathy, tenderness, tracheal deviation Respiratory exam: PRESENT: decreased breath sounds - At bases, rales - Bilateral , symmetrical. ABSENT: stridor, wheezes Cardiovascular exam: PRESENT: RRR, +S1, +S2 Pulses: PRESENT: normal radial pulses GI/Abdominal exam: PRESENT: normal bowel sounds, soft. ABSENT: distended, tenderness Extremities exam: ABSENT: calf tenderness, pedal edema Neurological exam: PRESENT: alert, awake, oriented to person, oriented to place , oriented to situation, CN II-XII grossly intact Psychiatric exam: PRESENT: anxious - Mild, appropriate affect, normal mood - Reasonably good mood Focused psych exam: ABSENT: delusional, paranoid, pressured speech Skin exam: PRESENT: dry, intact, warm. ABSENT: cyanosis, rash Results Laboratory Results: 01/04/18 05:20 01/04/18 05:20 01/04/18 01/04/18 01/04/18 05:20 05:20 05:20 WBC 5.8 RBC 2.91 L Hgb 8.7 L Hct 25.5 L MCV 88 MCH 30.0 MCHC 34.3 RDW 16.7 H Plt Count 117 L Seg Neutrophils % 91.5 H Lymphocytes % 5.1 L Monocytes % 3.1 Eosinophils % 0.0 Basophils % 0.3 Absolute Neutrophils 5.3 Absolute Lymphocytes 0.3 L Absolute Monocytes 0.2 Absolute Eosinophils 0.0 Absolute Basophils 0.0 Carbonic Acid Cancelled HCO3/H2CO3 Ratio Cancelled ABG pH Cancelled ABG pCO2 Cancelled ABG pO2 Cancelled ABG HCO3 Cancelled ABG O2 Saturation Cancelled ABG Base Excess Cancelled FiO2 Cancelled Sodium 136.4 L Potassium 3.6 Chloride 96 L Carbon Dioxide 26 Anion Gap 14 BUN 29 H Creatinine 4.97 H Est GFR ( Amer) 11 L Est GFR (Non-Af Amer) 9 L Glucose 124 H Calcium 9.0 01/02/18 01/02/18 01/03/18 10:55 13:20 05:50 Troponin I 0.031 NT-Pro-B Natriuret Pep [id number] H [id number] H Impressions: Chest/Abdomen CTA 01/02/18 00:00 IMPRESSION: 1. NORMAL CTA OF THE CHEST. NO PULMONARY EMBOLI. 2. MODERATE BILATERAL PLEURAL EFFUSIONS, RIGHT GREATER THAN LEFT. PATCHY CONSOLIDATION IN BOTH LUNG BASES MAY BE DUE TO ATELECTASIS VERSUS PNEUMONIA. 3. PATCHY AIRSPACE DISEASE SCATTERED THROUGHOUT THE RIGHT UPPER LOBE AND RIGHT LOWER LOBE. 4. DENSE CONSOLIDATION AND COLLAPSE OF THE RIGHT MIDDLE LOBE WITH AIR BRONCHOGRAMS. Chest X-Ray 01/03/18 00:00 IMPRESSION: NO CHANGE IN APPEARANCE OF THE CHEST. Assessment & Plan - Diagnosis (1) COPD exacerbation Is this a current diagnosis for this admission?: Yes Plan: The patient was stable on BiPAP and is transitioning to nasal cannula. Initially she seems to be doing well. I have decreased her Solu-Medrol. We will continue nebulizer therapies and continue to wean her oxygen (nasal cannula trials currently) (2) Pneumonia Qualifiers: Pneumonia type: due to unspecified organism Laterality: right Lung location: lower lobe of lung Qualified Code(s): J18.1 - Lobar pneumonia, unspecified organism Is this a current diagnosis for this admission?: Yes Plan: The patient will continue on her meropenem and azithromycin. Vancomycin was added due to the progressive appearance of the x-ray. It is possible that pulmonary edema is making the x-ray worse. We will continue the current antibiotic regimen. I will also discuss with pulmonology. (3) Exacerbation of asthma Qualifiers: Asthma severity: moderate Asthma persistence: persistent Qualified Code(s ): J45.41 - Moderate persistent asthma with (acute) exacerbation Is this a current diagnosis for this admission?: Yes Plan: This exacerbation of her asthma is treated with a combination of BiPAP, intravenous steroid therapy and nebulizer treatments. (4) End stage renal disease on dialysis Is this a current diagnosis for this admission?: Yes Plan: The patient is having dialysis today. If she is stable after dialysis consider transferring up to [facility]. (5) Anemia, chronic renal failure Is this a current diagnosis for this admission?: Yes Plan: Hemoglobin is low but appears to be stable. We will defer to nephrology for use of erythropoietin analogs. - Time Time Spent with patient: 35 or more minutes
[2018-01-04] MEDS: AZITHROMYCIN 500 MG in DEXTROSE 5%-WATER 250 ML IV SCH (17:40)
[2018-01-04] MEDS: METHYLPREDNISOLONE INJ 40 MG/1 ML SDV IV SCH (21:37)
[2018-01-05] MEDS: HYDRALAZINE HCL INJ/PF 20 MG/1 ML SDV IV PRN (04:39)
[2018-01-05] MEDS ORDERED: EPOETIN ALFA INJ 20000 UNIT/1 ML VIAL (RENAL) IV PRN (05:00)
[2018-01-05] MEDS: HEPARIN SOD (PORCINE) 5,000 UNIT/ML 1 ML SYRINGE SUBCUT SCH ×3 (06:15→21:39)
[2018-01-05] MEDS: CARVEDILOL 12.5 MG TABLET PO SCH ×2 (06:24→17:32)
[2018-01-05] MEDS: CLONIDINE HCL 0.1 MG TABLET PO SCH ×3 (06:24→21:39)
[2018-01-05] MEDS: HYDRALAZINE HCL 50 MG TABLET PO SCH ×3 (06:24→21:39)
[2018-01-05] MEDS: METHYLPREDNISOLONE INJ 40 MG/1 ML SDV IV SCH ×2 (06:25→21:39)
[2018-01-05] MEDS: DOCUSATE SODIUM 100 MG CAPSULE PO SCH (09:30)
[2018-01-05] MEDS: FAMOTIDINE 20 MG TABLET PO SCH ×2 (09:30→21:38)
[2018-01-05] MEDS: NIFEDIPINE 30 MG TAB.ER.24 PO SCH ×2 (09:32→21:38)
[2018-01-05 10:09] LABS: ANION GAP 12 (5-19); BLOOD UREA NITROGEN 16 mg/dL (7-20); CALCIUM 9.4 mg/dL (8.4-10.2); CARBON DIOXIDE 32 mmol/L (22-30); CHLORIDE 97 mmol/L (98-107); GLUCOSE 116 mg/dL (75-110); POTASSIUM 3.5 mmol/L (3.6-5.0); SODIUM 140.8 mmol/L (137-145)
[2018-01-05 10:13] LABS: VANCOMYCIN,TROUGH 9.7 ug/mL (5.0-20.0)
[2018-01-05 11:43] LABS: HEMATOCRIT 29.6 % (36.0-47.0); HEMOGLOBIN 10.1 g/dL (12.0-15.5); MEAN CORPUSCULAR HEMOGLOBIN 30.3 pg (27.0-33.4); MEAN CORPUSCULAR HGB CONC 34.3 g/dL (32.0-36.0); MEAN CORPUSCULAR VOLUME 88 fl (80-97); PLATELET COUNT 153 10^3/uL (150-450); RED BLOOD COUNT 3.35 10^6/uL (3.72-5.28); RED CELL DISTRIBUTION WIDTH 16.8 % (11.5-14.0); WHITE BLOOD COUNT 10.9 10^3/uL (4.0-10.5)
[2018-01-05] MEDS: MEROPENEM 500 MG in NORMAL SALINE 50 ML IV SCH ×2 (12:08→21:40)
[2018-01-05] MEDS ORDERED: METHYLPREDNISOLONE INJ 125 MG/2 ML SDV IV SCH (14:00)
--- NOTE | 2018-01-05 14:02 | PDOC PROGRESS REPORT ---
Subjective Progress Note for:: 01/05/18 Reason For Visit: Patient seen today in the ICU. She is looking a whole lot better. She feels the same. She is on nasal cannula. She is coughing but not as hard as she was before. Her breathing is a whole lot better. She denies any such chest pain, fever or chills. Labs and medications were reviewed with her and the treating dialysis nurse. She is undergoing dialysis without any issues. Physical Exam Vital Signs: Temp Pulse Resp BP Pulse Ox 97.5 F 77 17 122/75 97 01/05/18 12:00 01/05/18 12:00 01/05/18 12:00 01/05/18 12:00 01/05/18 12:00 Intake & Output 01/04/18 01/05/18 01/06/18 06:59 06:59 06:59 Intake Total 800 300 50 Output Total 0 3050 Balance 800 -2750 50 Weight 68.2 kg General appearance: PRESENT: no acute distress Respiratory exam: PRESENT: clear to auscultation stella, crackles, decreased breath sounds Cardiovascular exam: PRESENT: +S1, +S2, systolic murmur GI/Abdominal exam: PRESENT: normal bowel sounds, soft. ABSENT: organomegaly, tenderness Extremities exam: PRESENT: pedal edema Neurological exam: PRESENT: alert, awake, oriented to person, oriented to place Psychiatric exam: PRESENT: appropriate affect Skin exam: ABSENT: cyanosis, mottled, rash Results Laboratory Results: 01/05/18 09:40 01/05/18 09:15 01/05/18 01/05/18 01/05/18 09:15 09:15 09:40 WBC 10.9 H RBC 3.35 L Hgb 10.1 L Hct 29.6 L MCV 88 MCH 30.3 MCHC 34.3 RDW 16.8 H Plt Count 153 Sodium 140.8 Potassium 3.5 L Chloride 97 L Carbon Dioxide 32 H Anion Gap 12 BUN 16 Creatinine 2.42 H Est GFR ( Amer) 24 L Est GFR (Non-Af Amer) 20 L Glucose 116 H Calcium 9.4 Magnesium 1.9 01/02/18 01/02/18 01/03/18 10:55 13:20 05:50 Troponin I 0.031 NT-Pro-B Natriuret Pep [id number] H [id number] H Impressions: Chest/Abdomen CTA 01/02/18 00:00 IMPRESSION: 1. NORMAL CTA OF THE CHEST. NO PULMONARY EMBOLI. 2. MODERATE BILATERAL PLEURAL EFFUSIONS, RIGHT GREATER THAN LEFT. PATCHY CONSOLIDATION IN BOTH LUNG BASES MAY BE DUE TO ATELECTASIS VERSUS PNEUMONIA. 3. PATCHY AIRSPACE DISEASE SCATTERED THROUGHOUT THE RIGHT UPPER LOBE AND RIGHT LOWER LOBE. 4. DENSE CONSOLIDATION AND COLLAPSE OF THE RIGHT MIDDLE LOBE WITH AIR BRONCHOGRAMS. Chest X-Ray 01/03/18 00:00 IMPRESSION: NO CHANGE IN APPEARANCE OF THE CHEST. Assessment & Plan - Diagnosis (1) Acute hypoxemic respiratory failure Is this a current diagnosis for this admission?: Yes Plan: Improving on the current lines of management. She should start to feel better as her pneumonia improves. There is no signs of overt congestive heart failure at the moment. (2) Pneumonia Qualifiers: Pneumonia type: due to unspecified organism Laterality: right Lung location: lower lobe of lung Qualified Code(s): J18.1 - Lobar pneumonia, unspecified organism Is this a current diagnosis for this admission?: Yes Plan: On antibiotics. Improving. (3) End stage renal disease on dialysis Is this a current diagnosis for this admission?: Yes Plan: Currently undergoing dialysis without any issues. Is being supervised to ensure safe and smooth procedure. Vital signs are stable. Plan to remove between 1 and 3 L as tolerated. Dialysis orders were reviewed with the treating dialysis nurse. (4) Hypertension Qualifiers: Hypertension type: unspecified Qualified Code(s): I10 - Essential (primary ) hypertension Is this a current diagnosis for this admission?: Yes Plan: Relatively controlled. See response to dialysis. (5) Systolic congestive heart failure Plan: She has got biventricular failure. Needs further evaluation as an outpatient as she would need to have this looked at from a transplant perspective. Currently there is no overt signs of left ventricular failure. (6) Pulmonary hypertension Plan: Will need further evaluation as an outpatient. Continue present lines of management. (7) Anemia, chronic renal failure Is this a current diagnosis for this admission?: Yes Plan: Adjust erythropoietin. Monitor.
[2018-01-05] MEDS ORDERED: VANCOMYCIN HCL 1,000 MG in DEXTROSE 5%-WATER 250 ML IV SCH (18:00)
--- NOTE | 2018-01-05 18:33 | PDOC PROGRESS REPORT ---
Subjective Progress Note for:: 01/05/18 Subjective:: This pleasant 67-year-old female is resting comfortably in bed. She is currently on nasal cannula and is not having any difficulty breathing. She in fact is on hemodialysis again today. Reason For Visit: PNEUMONIA, ACUTE HYPOXEMIC RESPIRATORY FAILURE Physical Exam Vital Signs: Temp Pulse Resp BP Pulse Ox 97.8 F 65 18 146/68 H 97 01/05/18 16:04 01/05/18 16:04 01/05/18 16:04 01/05/18 16:04 01/05/18 16:04 Intake & Output 01/04/18 01/05/18 01/06/18 06:59 06:59 06:59 Intake Total 800 300 787 Output Total 0 3050 2700 Balance 800 -2750 -1913 Weight 68.2 kg General appearance: PRESENT: no acute distress, cooperative, well-developed Head exam: PRESENT: atraumatic, normocephalic Eye exam: PRESENT: conjunctiva pale, EOMI. ABSENT: scleral icterus Neck exam: PRESENT: full ROM. ABSENT: carotid bruit, lymphadenopathy Respiratory exam: PRESENT: clear to auscultation stella, symmetrical, unlabored. ABSENT: rales, rhonchi, wheezes Cardiovascular exam: PRESENT: RRR, +S1, +S2 GI/Abdominal exam: PRESENT: normal bowel sounds, soft. ABSENT: distended, tenderness Extremities exam: PRESENT: pedal edema. ABSENT: calf tenderness, joint swelling Musculoskeletal exam: PRESENT: other - Decreased muscle mass Neurological exam: PRESENT: alert, awake, oriented to person, oriented to place , oriented to situation Psychiatric exam: PRESENT: appropriate affect, normal mood Skin exam: PRESENT: dry, normal color, warm. ABSENT: abrasion Results Laboratory Results: 01/05/18 09:40 01/05/18 09:15 01/05/18 01/05/18 01/05/18 09:15 09:15 09:40 WBC 10.9 H RBC 3.35 L Hgb 10.1 L Hct 29.6 L MCV 88 MCH 30.3 MCHC 34.3 RDW 16.8 H Plt Count 153 Sodium 140.8 Potassium 3.5 L Chloride 97 L Carbon Dioxide 32 H Anion Gap 12 BUN 16 Creatinine 2.42 H Est GFR ( Amer) 24 L Est GFR (Non-Af Amer) 20 L Glucose 116 H Calcium 9.4 Magnesium 1.9 01/02/18 01/02/18 01/03/18 10:55 13:20 05:50 Troponin I 0.031 NT-Pro-B Natriuret Pep [id number] H [id number] H Impressions: Chest/Abdomen CTA 01/02/18 00:00 IMPRESSION: 1. NORMAL CTA OF THE CHEST. NO PULMONARY EMBOLI. 2. MODERATE BILATERAL PLEURAL EFFUSIONS, RIGHT GREATER THAN LEFT. PATCHY CONSOLIDATION IN BOTH LUNG BASES MAY BE DUE TO ATELECTASIS VERSUS PNEUMONIA. 3. PATCHY AIRSPACE DISEASE SCATTERED THROUGHOUT THE RIGHT UPPER LOBE AND RIGHT LOWER LOBE. 4. DENSE CONSOLIDATION AND COLLAPSE OF THE RIGHT MIDDLE LOBE WITH AIR BRONCHOGRAMS. Chest X-Ray 01/03/18 00:00 IMPRESSION: NO CHANGE IN APPEARANCE OF THE CHEST. Assessment & Plan - Diagnosis (1) COPD exacerbation Is this a current diagnosis for this admission?: Yes Plan: The patient was stable on BiPAP and is transitioning to nasal cannula. Initially she seems to be doing well. I have decreased her Solu-Medrol. We will continue nebulizer therapies and continue to wean her oxygen (nasal cannula trials currently) January 05, 2018-patient has intact weaned off of her nasal cannula. She is breathing quite comfortably. We will continue her current regimen. (2) Pneumonia Qualifiers: Pneumonia type: due to unspecified organism Laterality: right Lung location: lower lobe of lung Qualified Code(s): J18.1 - Lobar pneumonia, unspecified organism Is this a current diagnosis for this admission?: Yes Plan: The patient will continue on her meropenem and azithromycin. Vancomycin was added due to the progressive appearance of the x-ray. It is possible that pulmonary edema is making the x-ray worse. We will continue the current antibiotic regimen. I will also discuss with pulmonology. January 05, 2018-because of the broad coverage of vancomycin and meropenem I have discontinued the azithromycin. As noted above the patient is on room air. (3) Exacerbation of asthma Qualifiers: Asthma severity: moderate Asthma persistence: persistent Qualified Code(s ): J45.41 - Moderate persistent asthma with (acute) exacerbation Is this a current diagnosis for this admission?: Yes Plan: This exacerbation of her asthma is treated with a combination of BiPAP, intravenous steroid therapy and nebulizer treatments. January 05, 2018-as noted above I have begun to decrease her steroid therapy. We will otherwise continue her current regimen. (4) End stage renal disease on dialysis Is this a current diagnosis for this admission?: Yes Plan: The patient is having dialysis today. If she is stable after dialysis consider transferring up to [facility]. January 05, 2018-the patient is receiving hemodialysis again today. Because she is improved she will transition up to [facility] after dialysis. Please also see nephrology note. (5) Anemia, chronic renal failure Is this a current diagnosis for this admission?: Yes Plan: Hemoglobin is stable. Erythropoietin per nephrology. - Time Time Spent with patient: 25-34 minutes Medications reviewed and adjusted accordingly: Yes
[2018-01-06] MEDS: HYDRALAZINE HCL INJ/PF 20 MG/1 ML SDV IV PRN (01:14)
[2018-01-06] MEDS: CARVEDILOL 12.5 MG TABLET PO SCH ×2 (06:04→18:54)
[2018-01-06] MEDS: HEPARIN SOD (PORCINE) 5,000 UNIT/ML 1 ML SYRINGE SUBCUT SCH ×3 (06:04→22:06)
[2018-01-06] MEDS: CLONIDINE HCL 0.1 MG TABLET PO SCH ×3 (06:04→22:05)
[2018-01-06] MEDS: HYDRALAZINE HCL 50 MG TABLET PO SCH ×3 (06:04→22:04)
[2018-01-06 06:38] LABS: ANION GAP 11 (5-19); BLOOD UREA NITROGEN 23 mg/dL (7-20); CALCIUM 9.2 mg/dL (8.4-10.2); CARBON DIOXIDE 30 mmol/L (22-30); CHLORIDE 97 mmol/L (98-107); GLUCOSE 126 mg/dL (75-110); PHOSPHORUS 2.7 mg/dL (2.5-4.5); POTASSIUM 3.6 mmol/L (3.6-5.0); SODIUM 138.2 mmol/L (137-145)
--- NOTE | 2018-01-06 10:15 | RADIOLOGY REPORT (SQ) ---
EXAM DESCRIPTION: CHEST SINGLE VIEW COMPLETED DATE/TIME: 01/06/2018 9:52 am REASON FOR STUDY: resp failure COMPARISON: 01/03/2018. EXAM PARAMETERS: NUMBER OF VIEWS: One view. TECHNIQUE: Single frontal radiographic view of the chest acquired. RADIATION DOSE: NA LIMITATIONS: None. FINDINGS: LUNGS AND PLEURA: Improved aeration in the lung bases. Decreased pleural effusions. MEDIASTINUM AND HILAR STRUCTURES: No masses. Contour normal. HEART AND VASCULAR STRUCTURES: Heart normal in size. Normal vasculature. BONES: No acute findings. HARDWARE: Central line. Left axillary stent. OTHER: No other significant finding. IMPRESSION: IMPROVED APPEARANCE OF THE CHEST. TECHNICAL DOCUMENTATION: JOB ID: [id number] [employer]- All Rights Reserved Reading location - IP/workstation name: [email or web address]
[2018-01-06] MEDS: METHYLPREDNISOLONE INJ 40 MG/1 ML SDV IV SCH (10:53)
[2018-01-06] MEDS: NIFEDIPINE 30 MG TAB.ER.24 PO SCH ×2 (10:53→22:04)
[2018-01-06] MEDS: FAMOTIDINE 20 MG TABLET PO SCH ×2 (10:54→22:04)
[2018-01-06] MEDS: DOCUSATE SODIUM 100 MG CAPSULE PO SCH (10:54)
[2018-01-06] MEDS: MEROPENEM 500 MG in NORMAL SALINE 50 ML IV SCH ×2 (10:59→22:06)
--- NOTE | 2018-01-06 15:46 | PDOC PROGRESS REPORT ---
Subjective Progress Note for:: 01/06/18 Subjective:: The patient is resting comfortably this afternoon. She has transitioned nicely from the ICU. Her breathing is relaxed. She in fact has her incentive spirometer and reports using it regularly. Reason For Visit: PNEUMONIA, ACUTE HYPOXEMIC RESPIRATORY FAILURE Physical Exam Vital Signs: Temp Pulse Resp BP Pulse Ox 97.6 F 66 16 152/66 H 96 01/06/18 11:30 01/06/18 11:30 01/06/18 11:30 01/06/18 11:30 01/06/18 11:30 Intake & Output 01/05/18 01/06/18 01/07/18 06:59 06:59 05:59 Intake Total 300 1187 200 Output Total 3050 2700 Balance -2750 -1513 200 Weight 68.2 kg 67.4 kg General appearance: PRESENT: no acute distress, cooperative, well-developed, well-nourished Head exam: PRESENT: atraumatic, normocephalic Eye exam: PRESENT: conjunctiva pale, EOMI. ABSENT: scleral icterus Ear exam: PRESENT: normal external ear exam Mouth exam: PRESENT: moist Neck exam: PRESENT: full ROM. ABSENT: carotid bruit, lymphadenopathy Respiratory exam: PRESENT: decreased breath sounds - At the bases, symmetrical, unlabored. ABSENT: rales, rhonchi, wheezes Cardiovascular exam: PRESENT: RRR, +S1, +S2, systolic murmur - 3/6 GI/Abdominal exam: PRESENT: normal bowel sounds, soft. ABSENT: distended, tenderness Extremities exam: ABSENT: calf tenderness, pedal edema Neurological exam: PRESENT: alert, awake, oriented to person, oriented to place Psychiatric exam: PRESENT: appropriate affect, normal mood Focused psych exam: PRESENT: other - During this brief encounter she seems appropriate. Discussed with the nurse reveals that she does exhibit memory issues. It is hard to know if this is her premorbid baseline. Skin exam: PRESENT: dry, normal color, warm Results Laboratory Results: 01/05/18 09:40 01/06/18 05:50 01/06/18 05:50 Sodium 138.2 Potassium 3.6 Chloride 97 L Carbon Dioxide 30 Anion Gap 11 BUN 23 H Creatinine 2.87 H Est GFR ( Amer) 20 L Est GFR (Non-Af Amer) 16 L Glucose 126 H Calcium 9.2 Phosphorus 2.7 Magnesium 1.9 Albumin 3.0 L 01/02/18 01/02/18 01/03/18 10:55 13:20 05:50 Troponin I 0.031 NT-Pro-B Natriuret Pep [id number] H [id number] H Impressions: Chest/Abdomen CTA 01/02/18 00:00 IMPRESSION: 1. NORMAL CTA OF THE CHEST. NO PULMONARY EMBOLI. 2. MODERATE BILATERAL PLEURAL EFFUSIONS, RIGHT GREATER THAN LEFT. PATCHY CONSOLIDATION IN BOTH LUNG BASES MAY BE DUE TO ATELECTASIS VERSUS PNEUMONIA. 3. PATCHY AIRSPACE DISEASE SCATTERED THROUGHOUT THE RIGHT UPPER LOBE AND RIGHT LOWER LOBE. 4. DENSE CONSOLIDATION AND COLLAPSE OF THE RIGHT MIDDLE LOBE WITH AIR BRONCHOGRAMS. Chest X-Ray 01/06/18 06:00 IMPRESSION: IMPROVED APPEARANCE OF THE CHEST. Assessment & Plan - Diagnosis (1) COPD exacerbation Is this a current diagnosis for this admission?: Yes Plan: The patient was stable on BiPAP and is transitioning to nasal cannula. Initially she seems to be doing well. I have decreased her Solu-Medrol. We will continue nebulizer therapies and continue to wean her oxygen (nasal cannula trials currently) January 05, 2018-patient has intact weaned off of her nasal cannula. She is breathing quite comfortably. We will continue her current regimen. 01/06/2018-the patient in fact is doing much better. She did wear her BiPAP last night. Further discussion with the nurse reveals that she requested it and in fact does not really need it. I am going to discontinue the BiPAP and have her sleep through the night and she would likely be the same without her BiPAP. She was not on BiPAP prior to this hospitalization. She does not warrant BiPAP at home. (2) Pneumonia Qualifiers: Pneumonia type: due to unspecified organism Laterality: right Lung location: lower lobe of lung Qualified Code(s): J18.1 - Lobar pneumonia, unspecified organism Is this a current diagnosis for this admission?: Yes Plan: The patient will continue on her meropenem and azithromycin. Vancomycin was added due to the progressive appearance of the x-ray. It is possible that pulmonary edema is making the x-ray worse. We will continue the current antibiotic regimen. I will also discuss with pulmonology. January 05, 2018-because of the broad coverage of vancomycin and meropenem I have discontinued the azithromycin. As noted above the patient is on room air. 01/06/2018-complete antibiotic therapy as ordered. The patient will not need outpatient antibiotic therapy as she will complete therapy prior to discharge. (3) Exacerbation of asthma Qualifiers: Asthma severity: moderate Asthma persistence: persistent Qualified Code(s ): J45.41 - Moderate persistent asthma with (acute) exacerbation Is this a current diagnosis for this admission?: Yes Plan: This exacerbation of her asthma is treated with a combination of BiPAP, intravenous steroid therapy and nebulizer treatments. January 05, 2018-as noted above I have begun to decrease her steroid therapy. We will otherwise continue her current regimen. She has tolerated the decreased methylprednisolone dose. I will decrease it again for tomorrow. (4) End stage renal disease on dialysis Is this a current diagnosis for this admission?: Yes Plan: The patient is having dialysis today. If she is stable after dialysis consider transferring up to [facility]. January 05, 2018-the patient is receiving hemodialysis again today. Because she is improved she will transition up to [facility] after dialysis. Please also see nephrology note. 01/06/2018-after receiving hemodialysis on and Monday the patient's next scheduled treatment is for Monday. (5) Anemia, chronic renal failure Is this a current diagnosis for this admission?: Yes Plan: Hemoglobin is stable. Erythropoietin per nephrology. - Time Time Spent with patient: 25-34 minutes Medications reviewed and adjusted accordingly: Yes
[2018-01-07] MEDS: HYDRALAZINE HCL 50 MG TABLET PO SCH ×3 (05:47→21:56)
[2018-01-07] MEDS: CLONIDINE HCL 0.1 MG TABLET PO SCH ×3 (05:47→21:56)
[2018-01-07] MEDS: HEPARIN SOD (PORCINE) 5,000 UNIT/ML 1 ML SYRINGE SUBCUT SCH ×3 (05:48→21:57)
[2018-01-07] MEDS: CARVEDILOL 12.5 MG TABLET PO SCH ×2 (05:48→18:57)
[2018-01-07] MEDS ORDERED: METHYLPREDNISOLONE INJ 125 MG/2 ML SDV IV SCH ×2 (10:00→14:14)
[2018-01-07] MEDS: MEROPENEM 500 MG in NORMAL SALINE 50 ML IV SCH ×2 (10:04→21:57)
[2018-01-07] MEDS: DOCUSATE SODIUM 100 MG CAPSULE PO SCH (10:04)
[2018-01-07] MEDS: NIFEDIPINE 30 MG TAB.ER.24 PO SCH ×2 (10:04→21:56)
[2018-01-07] MEDS: FAMOTIDINE 20 MG TABLET PO SCH ×2 (10:04→21:56)
[2018-01-07] MEDS ORDERED: IPRATROPIUM/ALBUTEROL 0.5-2.5 MG/3 ML AMPUL NEB PRN (14:14)
--- NOTE | 2018-01-07 14:21 | PDOC PROGRESS REPORT ---
Subjective Progress Note for:: 01/07/18 Subjective:: The patient is resting comfortably today. Her is visiting. She reports that she is having right hip pain that is worse today. She also reports a congested cough and she is "trying to cough up mucus". Reason For Visit: PNEUMONIA, ACUTE HYPOXEMIC RESPIRATORY FAILURE Physical Exam Vital Signs: Temp Pulse Resp BP Pulse Ox 97.7 F 81 18 148/54 H 94 01/07/18 11:18 01/07/18 11:18 01/07/18 11:18 01/07/18 11:18 01/07/18 11:18 Intake & Output 01/06/18 01/07/18 01/08/18 07:59 06:59 06:59 Intake Total Output Total Balance Weight General appearance: PRESENT: no acute distress, cooperative, well-developed Head exam: PRESENT: atraumatic, normocephalic Eye exam: PRESENT: conjunctiva pale. ABSENT: EOMI, scleral icterus Ear exam: PRESENT: normal external ear exam Mouth exam: PRESENT: moist Neck exam: ABSENT: lymphadenopathy, tenderness Respiratory exam: PRESENT: symmetrical, unlabored, other - Congested cough.. ABSENT: rales, rhonchi, wheezes Cardiovascular exam: PRESENT: irregular rhythm, systolic murmur GI/Abdominal exam: PRESENT: normal bowel sounds, soft. ABSENT: distended, tenderness Extremities exam: ABSENT: pedal edema Musculoskeletal exam: PRESENT: other - Decreased muscle mass Neurological exam: PRESENT: alert, awake, oriented to person, oriented to place Psychiatric exam: PRESENT: appropriate affect, normal mood Results Laboratory Results: 01/05/18 09:40 01/06/18 05:50 01/02/18 01/02/18 01/03/18 10:55 13:20 05:50 Troponin I 0.031 NT-Pro-B Natriuret Pep [id number] H [id number] H Impressions: Chest/Abdomen CTA 01/02/18 00:00 IMPRESSION: 1. NORMAL CTA OF THE CHEST. NO PULMONARY EMBOLI. 2. MODERATE BILATERAL PLEURAL EFFUSIONS, RIGHT GREATER THAN LEFT. PATCHY CONSOLIDATION IN BOTH LUNG BASES MAY BE DUE TO ATELECTASIS VERSUS PNEUMONIA. 3. PATCHY AIRSPACE DISEASE SCATTERED THROUGHOUT THE RIGHT UPPER LOBE AND RIGHT LOWER LOBE. 4. DENSE CONSOLIDATION AND COLLAPSE OF THE RIGHT MIDDLE LOBE WITH AIR BRONCHOGRAMS. Chest X-Ray 01/06/18 06:00 IMPRESSION: IMPROVED APPEARANCE OF THE CHEST. Assessment & Plan - Diagnosis (1) COPD exacerbation Is this a current diagnosis for this admission?: Yes Plan: The patient was stable on BiPAP and is transitioning to nasal cannula. Initially she seems to be doing well. I have decreased her Solu-Medrol. We will continue nebulizer therapies and continue to wean her oxygen (nasal cannula trials currently) January 05, 2018-patient has intact weaned off of her nasal cannula. She is breathing quite comfortably. We will continue her current regimen. 01/06/2018-the patient in fact is doing much better. She did wear her BiPAP last night. Further discussion with the nurse reveals that she requested it and in fact does not really need it. I am going to discontinue the BiPAP and have her sleep through the night and she would likely be the same without her BiPAP. She was not on BiPAP prior to this hospitalization. She does not warrant BiPAP at home. 01/07/2018-the patient is resting comfortably. She does complain of a congested cough. She does have congested breath sounds but no mariposa wheezes. And going to return her to her home regimen of Symbicort but I am going to add Spiriva. Nebulizer therapy will still be available if needed. I am also decreasing her Solu-Medrol to 40 mg once daily with a goal of tapering to off. (2) Pneumonia Qualifiers: Pneumonia type: due to unspecified organism Laterality: right Lung location: lower lobe of lung Qualified Code(s): J18.1 - Lobar pneumonia, unspecified organism Is this a current diagnosis for this admission?: Yes Plan: The patient will continue on her meropenem and azithromycin. Vancomycin was added due to the progressive appearance of the x-ray. It is possible that pulmonary edema is making the x-ray worse. We will continue the current antibiotic regimen. I will also discuss with pulmonology. January 05, 2018-because of the broad coverage of vancomycin and meropenem I have discontinued the azithromycin. As noted above the patient is on room air. 01/06/2018-complete antibiotic therapy as ordered. The patient will not need outpatient antibiotic therapy as she will complete therapy prior to discharge. 01/07/2018-patient is doing better. Nebulizer/inhaler treatments as above. Complete antibiotics as ordered. (3) Exacerbation of asthma Qualifiers: Asthma severity: moderate Asthma persistence: persistent Qualified Code(s ): J45.41 - Moderate persistent asthma with (acute) exacerbation Is this a current diagnosis for this admission?: Yes Plan: This exacerbation of her asthma is treated with a combination of BiPAP, intravenous steroid therapy and nebulizer treatments. January 05, 2018-as noted above I have begun to decrease her steroid therapy. We will otherwise continue her current regimen. 01/06/2018-she has tolerated the decreased methylprednisolone dose. I will decrease it again for tomorrow. 01/07/2018-as noted above I will have the patient back on her Symbicort and I will add Spiriva. I am going to give her several days of guaifenesin as well to loosen up any secretions that she may have. I will continue to decrease her Solu-Medrol to off. (4) End stage renal disease on dialysis Is this a current diagnosis for this admission?: Yes Plan: The patient is having dialysis today. If she is stable after dialysis consider transferring up to [facility]. January 05, 2018-the patient is receiving hemodialysis again today. Because she is improved she will transition up to [facility] after dialysis. Please also see nephrology note. 01/06/2018-after receiving hemodialysis on and Monday the patient's next scheduled treatment is for Monday. 01/07/2018-the patient will receive hemodialysis tomorrow. I have ordered laboratory studies for the morning predialysis. (5) Anemia, chronic renal failure Is this a current diagnosis for this admission?: Yes Plan: Hemoglobin is stable. Erythropoietin per nephrology. 01/07/2018-her hemoglobin is actually improving. Erythropoietin per nephrology. (6) Pain in right hip Is this a current diagnosis for this admission?: Yes Plan: The patient is having right hip pain today. Evidently it hampered getting up from the commode. The patient denies any history of arthritis. Staff reports that she was moving well yesterday. I explained to the patient that with her prolonged immobilization is not unexpected to have joint pain. We will obtain right hip x-ray to rule out osteoarthritis. If it is present we can use low- dose NSAIDs because she is already on dialysis. - Time Time Spent with patient: 25-34 minutes Medications reviewed and adjusted accordingly: Yes Anticipated discharge: Home - Plan Summary Plan Summary: As above.
--- NOTE | 2018-01-07 18:57 | RADIOLOGY REPORT (SQ) ---
EXAM DESCRIPTION: HIP RIGHT AP/LATERAL COMPLETED DATE/TIME: 01/07/2018 3:05 pm REASON FOR STUDY: right hip pain COMPARISON: None. NUMBER OF VIEWS: Two views. TECHNIQUE: AP pelvis and additional frog-leg view of the right hip. LIMITATIONS: None. FINDINGS: MINERALIZATION: Normal. RIGHT HIP: No fracture or dislocation. No worrisome bone lesions. LEFT HIP: No fracture or dislocation. No worrisome bone lesions. PUBIS AND ISCHIUM: No fracture. PELVIS: No fracture. SACRUM: No fracture or dislocation. No worrisome bone lesions. LOWER LUMBAR SPINE: No fracture or dislocation. No worrisome bone lesions. No significant disc disea se. SOFT TISSUES: No findings. OTHER: No other significant finding. IMPRESSION: NO RADIOGRAPHIC EVIDENCE OF ACUTE INJURY. TECHNICAL DOCUMENTATION: JOB ID: [id number] [place]-[id number] 2010 [employer]- All Rights Reserved Reading location - IP/workstation name: [email or web address]
[2018-01-07] MEDS: GUAIFENESIN 600 MG TABLET.SA PO SCH (21:56)
[2018-01-07] MEDS: BUDESONIDE/FORMOTEROL 160-4.5 MCG 60 PUFF/6 GM MDI IH SCH (21:57)
[2018-01-08] MEDS ORDERED: EPOETIN ALFA INJ 20000 UNIT/1 ML VIAL (RENAL) IV PRN (01:16)
[2018-01-08 05:27] LABS: HEMATOCRIT 27.1 % (36.0-47.0); HEMOGLOBIN 9.4 g/dL (12.0-15.5); MEAN CORPUSCULAR HEMOGLOBIN 30.8 pg (27.0-33.4); MEAN CORPUSCULAR HGB CONC 34.5 g/dL (32.0-36.0); MEAN CORPUSCULAR VOLUME 89 fl (80-97); PLATELET COUNT 109 10^3/uL (150-450); RED BLOOD COUNT 3.04 10^6/uL (3.72-5.28); RED CELL DISTRIBUTION WIDTH 16.6 % (11.5-14.0); WHITE BLOOD COUNT 9.9 10^3/uL (4.0-10.5)
[2018-01-08] MEDS: HYDRALAZINE HCL 50 MG TABLET PO SCH ×2 (05:31→13:53)
[2018-01-08] MEDS: CLONIDINE HCL 0.1 MG TABLET PO SCH ×2 (05:31→13:52)
[2018-01-08] MEDS: CARVEDILOL 12.5 MG TABLET PO SCH (05:32)
[2018-01-08] MEDS: HEPARIN SOD (PORCINE) 5,000 UNIT/ML 1 ML SYRINGE SUBCUT SCH ×2 (05:32→13:53)
[2018-01-08 05:44] LABS: ALBUMIN 2.8 g/dL (3.5-5.0); ANION GAP 11 (5-19); BLOOD UREA NITROGEN 46 mg/dL (7-20); CARBON DIOXIDE 29 mmol/L (22-30); CHLORIDE 94 mmol/L (98-107); GLUCOSE 86 mg/dL (75-110); PHOSPHORUS 3.5 mg/dL (2.5-4.5)
[2018-01-08] MEDS ORDERED: EPOETIN ALFA 5,000 UNIT in SYRINGE, DISPOSABLE, 1 EACH IV PRN (07:43)
[2018-01-08] MEDS ORDERED: TIOTROPIUM BROMIDE DPI 5 CAP/KIT (18 MCG/CAP) IH SCH (10:00)
[2018-01-08] MEDS ORDERED: METHYLPREDNISOLONE INJ 40 MG/1 ML SDV IV SCH (10:00)
[2018-01-08] MEDS ORDERED: EPOETIN ALFA 10,000 UNIT in SYRINGE, DISPOSABLE, 1 EACH IV ONE (10:30)
[2018-01-08] MEDS: MEROPENEM 500 MG in NORMAL SALINE 50 ML IV SCH (13:51)
[2018-01-08] MEDS: GUAIFENESIN 600 MG TABLET.SA PO SCH (13:52)
[2018-01-08] MEDS: DOCUSATE SODIUM 100 MG CAPSULE PO SCH (13:52)
[2018-01-08] MEDS: FAMOTIDINE 20 MG TABLET PO SCH (13:53)
[2018-01-08] MEDS: NIFEDIPINE 30 MG TAB.ER.24 PO SCH (13:53)
[2018-01-08 17:03] VITALS: BP 157/50
[2018-01-08] MEDS: BUDESONIDE/FORMOTEROL 160-4.5 MCG 60 PUFF/6 GM MDI IH SCH (17:13)
--- NOTE | 2018-01-08 18:02 | PDOC DISCHARGE SUMMARY ---
General - Admit/Disc Date/PCP Admission Date/Primary Care Provider: 01/01/18 15:36 SHIRA MONK PA-C Discharge Date: 01/08/18 - Discharge Diagnosis (1) COPD exacerbation Is this a current diagnosis for this admission?: Yes Summary: This pleasant 67-year-old female had an acute onset of shortness of breath. When EMS arrived she was on her front porch. She was tachypneic on room air with an oxygen saturation of 89%. Shortness of breath was present when she woke up. She was fine the day before. She is in end-stage kidney failure patient who receives hemodialysis 3 days a week. She was treated as an outpatient for bronchitis with a course of oral antibiotics and prednisone. She had a window of noticeable improvement and then declined. Upon arrival to the hospital the workup included laboratory studies and chest x- ray. Right-sided infiltrates were noted on chest x-ray. The patient was started on IV antibiotics and continued on BiPAP. The COPD was treated with nebulizer treatments as well as intravenous steroids. After transitioning to the medical floor the patient's Symbicort was resumed and her nebulizer treatments were as needed. Over the weekend she did complain of a congested cough. I did initiate therapy with guaifenesin and added Spiriva to her regimen. At the time of discharge she was back on room air. A prescription was provided for the Spiriva. (2) Pneumonia Is this a current diagnosis for this admission?: Yes Summary: Based on the chest x-ray and the patient's increased shortness of breath antibiotics were started. Over the next day or 2 the chest x-ray worsened. She was on azithromycin, vancomycin and meropenem. These 3 were used for broad- spectrum coverage. The patient's breathing did improve. The infiltrates did appear to improve as well. Antibiotic therapy completed during her admission. (3) Exacerbation of asthma Is this a current diagnosis for this admission?: Yes Summary: The patient underwent the same treatment for her COPD exacerbation and asthma including nebulizer treatments and steroids as noted above. She did successfully changed to her home regimen with the addition of Spiriva for her COPD. (4) End stage renal disease on dialysis Is this a current diagnosis for this admission?: Yes Summary: The nephrology service saw the patient and she was dialyzed in the ICU at first and went down to the dialysis unit in the hospital for this morning session. She will follow-up her regularly scheduled outpatient dialysis which is Monday, Monday and Monday. (5) Anemia, chronic renal failure Is this a current diagnosis for this admission?: Yes Summary: Her anemia has been stable. Nephrology manages her erythropoietin. (6) Pain in right hip Is this a current diagnosis for this admission?: Yes Summary: Yesterday the patient was complaining of right hip pain that impaired her ability to get up off the commode or out of a chair. A hip x-ray showed no fractures, normal bone density and no significant arthritis. The patient reported that her hip felt better today. - Additional Information Resuscitation Status: Full Code Discharge Diet: Cardiac, Other (Comments) Discharge Activity: Activity As Tolerated Prescriptions: Carvedilol [Coreg 12.5 mg Tablet] 25 mg PO Q12A 30 Days #60 tablet Prednisone 5 mg PO DAILY 16 Days #40 tablet Tiotropium [place] [Spiriva Handihaler 5 Cap/Kit (18 Mcg/Cap)] 1 cap IH DAILY 30 Days #1 kit Home Medications: Albuterol Sulfate [Proair HFA Inhalation Aerosol 8.5 gm MDI] 2 puff IH Q6HP PRN 10/21/14 Hydralazine HCl 100 mg PO TID 02/07/15 Nifedipine [Procardia XL 30 mg Tablet] 60 mg PO Q12 07/30/15 Budesonide/Formoterol Fumarate [Symbicort 160-4.5 Mcg Inhaler] 2 puff IH BID 12/21 Clonidine HCl [Catapres 0.3 mg Tablet] 0.3 mg PO TID 01/01/18 Budesonide/Formoterol Fumarate [Symbicort HFA 160-4.5 mcg Inhaler 6 gm] 2 puff IH Q12 inhaler 01/08/18 Carvedilol [Coreg 12.5 mg Tablet] 25 mg PO Q12A 30 Days #60 tablet 01/08/18 Docusate Sodium [Colace 100 mg Capsule] 100 mg PO DAILY capsule 01/08/18 Guaifenesin [Mucinex Sr 600 mg Tablet.sa] 600 mg PO Q12 tablet.sa 01/08/18 Prednisone 5 mg PO DAILY 16 Days #40 tablet 01/08/18 Tiotropium [place] [Spiriva Handihaler 5 Cap/Kit (18 Mcg/Cap)] 1 cap IH DAILY 30 Days #1 kit 01/08/18 History of Present Illness History of Present Illness: JUANJOSE DURAN is a 67 year old female who presented to the hospital on January 01. She had a constellation of pneumonia, exacerbation of her asthma, exacerbation of COPD, volume overload with pleural effusions and acute respiratory failure requiring BiPAP. With aggressive antibiotic therapy the patient began to improve. The patient required several dialysis treatments to remove excess fluid. She actually did well over the last several days. She tolerated her dialysis this morning and is back on a baseline medication regimen with the addition of the Spiriva. The patient showed significant improvement. Hospital Course Hospital Course: As above Physical Exam Vital Signs: Temp Pulse Resp BP Pulse Ox 98.3 F 38 L 20 157/50 H 95 01/08/18 17:01 01/08/18 17:01 01/08/18 17:01 01/08/18 17:01 01/08/18 17:01 Intake & Output 01/07/18 01/08/18 01/09/18 06:59 06:59 06:59 Intake Total 1047 150.5 Output Total 100 Balance 947 150.5 Weight 66.4 kg General appearance: PRESENT: no acute distress, cooperative, well-developed Head exam: PRESENT: atraumatic, normocephalic Eye exam: PRESENT: conjunctiva pale, EOMI. ABSENT: scleral icterus Mouth exam: PRESENT: moist Neck exam: PRESENT: full ROM. ABSENT: carotid bruit, lymphadenopathy, tenderness Respiratory exam: PRESENT: clear to auscultation stella, symmetrical, unlabored. ABSENT: rales, rhonchi, wheezes Cardiovascular exam: PRESENT: RRR, +S1, +S2 GI/Abdominal exam: PRESENT: normal bowel sounds, soft. ABSENT: guarding, tenderness Extremities exam: PRESENT: pedal edema Musculoskeletal exam: PRESENT: ambulatory, normal inspection Neurological exam: PRESENT: alert, awake, oriented to person, oriented to place Psychiatric exam: PRESENT: appropriate affect, normal mood. ABSENT: agitated, anxious Skin exam: PRESENT: dry, intact, warm. ABSENT: cyanosis, rash Results Laboratory Results: 01/08/18 04:45 01/08/18 04:45 01/08/18 01/08/18 04:45 04:45 WBC 9.9 RBC 3.04 L Hgb 9.4 L Hct 27.1 L MCV 89 MCH 30.8 MCHC 34.5 RDW 16.6 H Plt Count 109 L Sodium 134.0 L Potassium 4.0 Chloride 94 L Carbon Dioxide 29 Anion Gap 11 BUN 46 H Creatinine 4.80 H Est GFR ( Amer) 11 L Est GFR (Non-Af Amer) 9 L Glucose 86 Calcium 9.0 Phosphorus 3.5 Magnesium 2.0 Albumin 2.8 L 01/02/18 01/02/18 01/03/18 10:55 13:20 05:50 Troponin I 0.031 NT-Pro-B Natriuret Pep [id number] H [id number] H Impressions: Chest/Abdomen CTA 01/02/18 00:00 IMPRESSION: 1. NORMAL CTA OF THE CHEST. NO PULMONARY EMBOLI. 2. MODERATE BILATERAL PLEURAL EFFUSIONS, RIGHT GREATER THAN LEFT. PATCHY CONSOLIDATION IN BOTH LUNG BASES MAY BE DUE TO ATELECTASIS VERSUS PNEUMONIA. 3. PATCHY AIRSPACE DISEASE SCATTERED THROUGHOUT THE RIGHT UPPER LOBE AND RIGHT LOWER LOBE. 4. DENSE CONSOLIDATION AND COLLAPSE OF THE RIGHT MIDDLE LOBE WITH AIR BRONCHOGRAMS. Chest X-Ray 01/06/18 06:00 IMPRESSION: IMPROVED APPEARANCE OF THE CHEST. Hip/Pelvis X-Ray 01/07/18 00:00 IMPRESSION: NO RADIOGRAPHIC EVIDENCE OF ACUTE INJURY. Qualifiers - * PATIENT BEING DISCHARGED WITH ANY OF THE FOLLOWING DIAGNOSIS: No Plan Discharge Plan: Renal failure-the patient will continue with outpatient hemodialysis and nephrology follow-up. Asthma-return to Symbicort inhaler. She was given a prednisone taper at discharge. She was also instructed to take guaifenesin. Chronic obstructive pulmonary disease-prednisone taper, Symbicort and the addition of Spiriva. Pneumonia-antibiotic therapy completed. Right hip pain-x-ray was unremarkable. Time Spent: Greater than 30 Minutes
--- NOTE | 2018-01-08 19:27 | PDOC PROGRESS REPORT ---
Subjective Progress Note for:: 01/08/18 Subjective:: I saw the patient this morning on dialysis at 8:[address] Diane. She said she feels good and denies any shortness of breathing. She does her incentive spirometry. She has a little bit of a dry cough. She was tolerating dialysis without any problems or complaints. Reason For Visit: PNEUMONIA, ACUTE HYPOXEMIC RESPIRATORY FAILURE Physical Exam Vital Signs: Temp Pulse Resp BP Pulse Ox 98.3 F 38 L 20 157/50 H 95 01/08/18 17:01 01/08/18 17:01 01/08/18 17:01 01/08/18 17:01 01/08/18 17:01 Intake & Output 01/07/18 01/08/18 01/09/18 06:59 06:59 06:59 Intake Total 1047 150.5 Output Total 100 Balance 947 150.5 Weight 66.4 kg Vitals during dialysis treatment: Blood pressure 1O 9/69, heart rate of 60, blood flow rate of 450 mL/min, and dialysate flow rate of 800 mg. Exam: General appearance: PRESENT: no acute distress, cooperative, well-developed, well-nourished Head exam: PRESENT: atraumatic, normocephalic Eye exam: PRESENT: conjunctiva pale, PERRLA. ABSENT: scleral icterus Neck exam: ABSENT: JVD Respiratory exam: PRESENT: Diminished breath sounds. ABSENT: crackles, rales, rhonchi, unlabored, wheezes Cardiovascular exam: PRESENT: Irregular rate rhythm -+S1, +S2. ABSENT: diastolic murmur, systolic murmur GI/Abdominal exam: PRESENT: normal bowel sounds, soft. ABSENT: guarding, mass, tenderness Extremities exam: ABSENT: No edema Neurological exam: PRESENT: alert, awake, oriented to person, place and time. Skin exam: PRESENT: dry, warm, Cardiovascular exam: PRESENT: +S1, +S2, systolic murmur GI/Abdominal exam: PRESENT: normal bowel sounds, soft. ABSENT: organomegaly, tenderness Results Laboratory Results: 01/08/18 04:45 01/08/18 04:45 01/08/18 01/08/18 04:45 04:45 WBC 9.9 RBC 3.04 L Hgb 9.4 L Hct 27.1 L MCV 89 MCH 30.8 MCHC 34.5 RDW 16.6 H Plt Count 109 L Sodium 134.0 L Potassium 4.0 Chloride 94 L Carbon Dioxide 29 Anion Gap 11 BUN 46 H Creatinine 4.80 H Est GFR ( Amer) 11 L Est GFR (Non-Af Amer) 9 L Glucose 86 Calcium 9.0 Phosphorus 3.5 Magnesium 2.0 Albumin 2.8 L 01/02/18 01/02/18 01/03/18 10:55 13:20 05:50 Troponin I 0.031 NT-Pro-B Natriuret Pep 973280 H [id number] H Impressions: Chest/Abdomen CTA 01/02/18 00:00 IMPRESSION: 1. NORMAL CTA OF THE CHEST. NO PULMONARY EMBOLI. 2. MODERATE BILATERAL PLEURAL EFFUSIONS, RIGHT GREATER THAN LEFT. PATCHY CONSOLIDATION IN BOTH LUNG BASES MAY BE DUE TO ATELECTASIS VERSUS PNEUMONIA. 3. PATCHY AIRSPACE DISEASE SCATTERED THROUGHOUT THE RIGHT UPPER LOBE AND RIGHT LOWER LOBE. 4. DENSE CONSOLIDATION AND COLLAPSE OF THE RIGHT MIDDLE LOBE WITH AIR BRONCHOGRAMS. Chest X-Ray 01/06/18 06:00 IMPRESSION: IMPROVED APPEARANCE OF THE CHEST. Hip/Pelvis X-Ray 01/07/18 00:00 IMPRESSION: NO RADIOGRAPHIC EVIDENCE OF ACUTE INJURY. Assessment & Plan - Diagnosis (1) End stage renal disease on dialysis Is this a current diagnosis for this admission?: Yes Plan: We did dialysis today for 3 hours, using the patient's left upper arm AV fistula , with 3 potassium bath, blood flow rate of 450 mL per minute, dialysate flow rate of 800 mL per minute, ultrafiltration 2 L as tolerated, no heparin and Procrit with 10,000 units during dialysis intravenously. Patient was monitored during dialysis treatment and tolerated procedure well. (2) Anemia, chronic renal failure Is this a current diagnosis for this admission?: Yes Plan: Procrit given today during dialysis. (3) Pneumonia Qualifiers: Pneumonia type: due to unspecified organism Laterality: right Lung location: lower lobe of lung Qualified Code(s): J18.1 - Lobar pneumonia, unspecified organism Is this a current diagnosis for this admission?: Yes (4) Acute hypoxemic respiratory failure Is this a current diagnosis for this admission?: Yes Plan: Resolved. (5) Hypertension Qualifiers: Hypertension type: unspecified Qualified Code(s): I10 - Essential (primary ) hypertension Is this a current diagnosis for this admission?: Yes Plan: Well-controlled. (6) Pulmonary hypertension Is this a current diagnosis for this admission?: Yes (7) Systolic congestive heart failure Is this a current diagnosis for this admission?: Yes - Time Time with patient: 15-25 minutes
== END 2018-01-08 17:37 | disposition home or self-care (01) | DRG 189 ==
LOC: ER 10:33 → EH 13:47 → UNDOADMIN 13:47 → EH 15:36 → 3W 17:41 → ICU 01-02 10:02 → 3W 01-05 14:14
PROVIDERS: ADMIT Internal Medicine; ATTEND Internal Medicine
PROC: 5A09557 Assistance with Respiratory Ventilation, Greater than 96 Consecutive Hours, Continuous Positive Airway Pressure (ICD-10-PCS; principal; 2018-01-01)
PROC: 3E0F73Z Introduction of Anti-inflammatory into Respiratory Tract, Via Natural or Artificial Opening (ICD-10-PCS; 2018-01-01)
PROC: 05HM33Z Insertion of Infusion Device into Right Internal Jugular Vein, Percutaneous Approach (ICD-10-PCS; 2018-01-02)
PROC: 5A1D70Z Performance of Urinary Filtration, Intermittent, Less than 6 Hours Per Day (ICD-10-PCS; 2018-01-02)
PROC: 5A1D70Z Performance of Urinary Filtration, Intermittent, Less than 6 Hours Per Day (ICD-10-PCS; 2018-01-04)
PROC: 5A1D70Z Performance of Urinary Filtration, Intermittent, Less than 6 Hours Per Day (ICD-10-PCS; 2018-01-05)
PROC: 5A1D70Z Performance of Urinary Filtration, Intermittent, Less than 6 Hours Per Day (ICD-10-PCS; 2018-01-08)
DX: J96.01 Acute respiratory failure with hypoxia (principal); J18.1 Lobar pneumonia, unspecified organism; N18.6 End stage renal disease; J44.1 Chronic obstructive pulmonary disease with (acute) exacerbation; N25.81 Secondary hyperparathyroidism of renal origin; I13.11 Hypertensive heart and chronic kidney disease without heart failure, with stage 5 chronic kidney disease, or end stage renal disease; I50.20 Unspecified systolic (congestive) heart failure; J45.41 Moderate persistent asthma with (acute) exacerbation; J44.0 Chronic obstructive pulmonary disease with (acute) lower respiratory infection; D63.1 Anemia in chronic kidney disease; M25.551 Pain in right hip; M19.90 Unspecified osteoarthritis, unspecified site; F41.9 Anxiety disorder, unspecified; I87.2 Venous insufficiency (chronic) (peripheral); I27.20 Pulmonary hypertension, unspecified; Z99.2 Dependence on renal dialysis; Z79.899 Other long term (current) drug therapy; Z90.710 Acquired absence of both cervix and uterus; Z87.891 Personal history of nicotine dependence; Z88.6 Allergy status to analgesic agent; Z88.0 Allergy status to penicillin; Z88.8 Allergy status to other drugs, medicaments and biological substances; Z82.49 Family history of ischemic heart disease and other diseases of the circulatory system; Z80.0 Family history of malignant neoplasm of digestive organs
CPT/HCPCS: 36415; 36600; 71045; 71275; 80048; 80053; 80069; 80202; 82803; 83605; 83735; 83880; 84484; 85025; 85027; 87040; 93005; 93010; 93306; 94640; 94660; 99285; C1751; J0360; J0456; J1644; J2185; J2250; J2920; J2930; J3370; J3490; J7060; J7620; Q4081

== ENCOUNTER 2018-04-04 19:53 | Emergency (ER) | payer MEDICARE, MEDICAID ==
--- NOTE | 2018-04-04 20:33 | ER Document Report ---
ED General - General Chief Complaint: Shortness Of Breath Stated Complaint: SHORTNESS OF BREATH Time Seen by Provider: 04/04/18 20:32 Primary Care Provider: RUI ROSE MD [Primary Care Provider] - Follow up as needed Notes: This is a 67-year-old female patient emergency department from dialysis for evaluation of not feeling well. Patient reportedly was at dialysis. Dialyzed and then stood up and became extremely dizzy. Denied any chest pain or shortness of breath. Has been hospitalized recently for pneumonia. Was seen in the hospital here and then transferred to [place] where she spent 7 days and has been recuperating since that time. TRAVEL OUTSIDE OF THE [place] IN LAST 30 DAYS: No - HPI Onset: Just prior to arrival Onset/Duration: Sudden Quality of pain: No pain Severity: Moderate Pain Level: Denies Associated symptoms: Shortness of breath Exacerbated by: Standing - Related Data Allergies/Adverse Reactions: pseudoephedrine HCl [From Sudafed] Allergy (Intermediate, Verified 11/11/17 09:11) Tongue Swelling aspirin [Aspirin] Allergy (Verified 11/11/17 09:11) Penicillins Allergy (Verified 11/11/17 09:11) KI Inhibitors [Ki Inhibitors] Adverse Reaction (Intermediate, Verified 11/11/17 09:11) Angioedema Past Medical History - General Information source: Patient - Social History Smoking Status: Former Smoker Frequency of alcohol use: None Drug Abuse: None Lives with: Family Family History: CAD, Malignancy - Colorectal cancer, Other - Cardiomyopathy mother Patient has suicidal ideation: No Patient has homicidal ideation: No - Past Medical History Cardiac Medical History: Reports: Hx Hypertension Pulmonary Medical History: Reports: Hx Asthma, Hx Bronchitis, Hx COPD Renal/ Medical History: Reports: Hx End Stage Renal Disease, Hx Hemodialysis. Denies: Hx Peritoneal Dialysis GI Medical History: Denies: Hx Cirrhosis, Hx Gastroesophageal Reflux Disease, Hx Hepatitis, Hx Hiatal Hernia, Hx Ulcer Musculoskeletal Medical History: Reports Hx Arthritis, Denies Hx Multiple Sclerosis Psychiatric Medical History: Denies: Hx Bipolar Disorder, Hx Depression, Hx Schizophrenia Infectious Medical History: Denies: Hx Hepatitis Past Surgical History: Reports: Hx Hysterectomy, Other - PermCath insertion. First stage left transposed brachial vein fistula.. Denies: Hx Mastectomy, Hx Open Heart Surgery, Hx Pacemaker - Immunizations Immunizations up to date: Yes Hx Diphtheria, Pertussis, Tetanus Vaccination: Yes Review of Systems - Review of Systems Notes: Constitutional: denies: Chills, Diaphoresis, Fever, Malaise, +Weakness EENT: denies: Eye discharge, Blurred vision, Tearing, Double vision, Nose congestion, Nose discharge, Throat swelling, Mouth pain Cardiovascular: denies: Palpitations, Heart racing, Orthopnea, Dyspnea, Chest pain+ tachycardia Respiratory: denies: Cough, Hurts to breathe, Wheezing, Shortness of breath Gastrointestinal: denies: Abdominal pain, Diarrhea, Nausea, Vomiting, Black stools, bright red blood in stool Genitourinary: denies: Burning, Dysuria, Discharge, Frequency, Flank pain, Hemat uria Musculoskeletal: denies: Joint pain, Joint swelling, Muscle pain, Muscle stiffness, back pain Hematologic/Lymphatic: denies: Anemia, Easy bleeding, Easy bruising, Blood clots Neurological/Psychological: denies: Confusion, Dementia, Depression, Loss of consciousness Skin: No lesions, no masses, no skin breakdown, no abscesses Physical Exam - Vital signs Vitals: Pulse Ox 89 L 04/04/18 19:58 Interpretation: Tachycardic, Tachypneic - General General appearance: Appears well, Alert - HEENT Head: Normocephalic, Atraumatic Eyes: Normal Pupils: PERRL - Respiratory Respiratory status: No respiratory distress Chest status: Nontender Breath sounds: Nonproductive cough, Rales Chest palpation: Normal - Cardiovascular Rhythm: Tachycardia Heart sounds: Normal auscultation Murmur: No - Abdominal Inspection: Normal Distension: No distension Bowel sounds: Normal Tenderness: Nontender Organomegaly: No organomegaly - Back Back: Normal, Nontender - Extremities General upper extremity: Normal inspection, Nontender, Normal color, Normal ROM, Normal temperature General lower extremity: Normal inspection, Nontender, Normal color, Normal ROM, Normal temperature. No: Keara's sign - Neurological Neuro grossly intact: Yes Cognition: Normal Orientation: AAOx4 Savage Coma Scale Eye Opening: Spontaneous Antonio Coma Scale Verbal: Oriented Savage Coma Scale Motor: Obeys Commands Antonio Coma Scale Total: 15 Speech: Normal Motor strength normal: LUE, RUE, LLE, RLE Sensory: Normal - Psychological Associated symptoms: Normal affect, Normal mood - Skin Skin Temperature: Warm Skin Moisture: Dry Skin Color: Normal Course - Re-evaluation Re-evalutation: 04/04/18 23:29 Patient initially came in with sinus tachycardia with heart rates in the 120s. Blood pressure was significantly elevated. Currently, I do not see anything significant on the workup today. Her blood pressure is come down after some clonidine and nifedipine. Chest x-ray looks unremarkable. Patient feels much better and would like to go home. Will DC at this time in stable condition. 04/04/18 23:30 Laboratory 04/04/18 04/04/18 04/04/18 21:56 21:56 21:56 WBC 5.0 RBC 3.59 L Hgb 11.0 L Hct 32.3 L MCV 90 MCH 30.6 MCHC 34.1 RDW 22.1 H Plt Count 133 L Seg Neutrophils % 81.7 H Lymphocytes % 9.1 L Monocytes % 8.9 Eosinophils % 0.1 Basophils % 0.2 Absolute Neutrophils 4.1 Absolute Lymphocytes 0.5 Absolute Monocytes 0.4 Absolute Eosinophils 0.0 Absolute Basophils 0.0 VBG pH 7.46 H VBG pCO2 42.4 VBG HCO3 29.5 VBG Base Excess 5.2 Sodium 136.1 L Potassium 3.2 L Chloride 97 L Carbon Dioxide 31 H Anion Gap 8 BUN 5 L Creatinine 1.75 H Est GFR ( Amer) 35 L Est GFR (Non-Af Amer) 29 L Glucose 89 Calcium 8.3 L Total Bilirubin 1.4 H Direct Bilirubin 0.5 H Neonat Total Bilirubin Not Reportable Neonat Direct Bilirubin Not Reportable Neonat Indirect Bili Not Reportable AST 30 ALT 33 Alkaline Phosphatase 104 Total Protein 4.9 L Albumin 2.8 L Chest X-Ray 04/04/18 21:16 IMPRESSION: No evidence of acute cardiopulmonary disease. - Vital Signs Vital signs: Temp Pulse Resp BP Pulse Ox 97.4 F 118 H 26 H 140/75 H 97 04/04/18 20:30 04/04/18 20:08 04/04/18 23:01 04/04/18 23:00 04/04/18 23:01 - Laboratory Result Diagrams: 04/04/18 21:56 04/04/18 21:56 Laboratory results interpreted by me: 04/04/18 04/04/18 04/04/18 21:56 21:56 21:56 RBC 3.59 L Hgb 11.0 L Hct 32.3 L RDW 22.1 H Plt Count 133 L Seg Neutrophils % 81.7 H Lymphocytes % 9.1 L VBG pH 7.46 H Sodium 136.1 L Potassium 3.2 L Chloride 97 L Carbon Dioxide 31 H BUN 5 L Creatinine 1.75 H Est GFR ( Amer) 35 L Est GFR (Non-Af Amer) 29 L Calcium 8.3 L Total Bilirubin 1.4 H Direct Bilirubin 0.5 H Total Protein 4.9 L Albumin 2.8 L - EKG Interpretation by Me EKG shows normal: QRS Complexes, ST-T Waves Rate: Tachycardia Voltage: Consistant with LVH Discharge - Discharge Clinical Impression: Hypertension Qualifiers: Hypertension type: unspecified Qualified Code(s): I10 - Essential (primary) hypertension Renal failure, chronic Qualifiers: Chronic kidney disease stage: unspecified stage Qualified Code(s): N18.9 - Chronic kidney disease, unspecified Condition: Good Disposition: HOME, SELF-CARE Instructions: High Blood Pressure, Requiring Treatment ([facility]) Additional Instructions: Your blood pressure was high when he first came in but using the medications that you normally get home we were able to bring her blood pressure down safely. That you have any worsening symptoms that will be important that you get a repeat evaluation. Please follow-up with your regular doctor. Return for any w orsening symptoms or concerns Referrals: PRADEEP HARRIS MD [ACTIVE STAFF] - Follow up in 3-5 days
[2018-04-04] MEDS ORDERED: CLONIDINE HCL 0.1 MG TABLET PO ONE (21:16)
--- NOTE | 2018-04-04 21:51 | RADIOLOGY REPORT (SQ) ---
XR CHEST 1 VIEW HISTORY: sob COMPARISON: 01/06/2018 FINDINGS: The heart size is normal. The lungs are clear. No pleural effusions or pneumothorax is seen. No acute bony findings. Left upper extremity vascular stent is noted. IMPRESSION: No evidence of acute cardiopulmonary disease.
[2018-04-04 22:14] LABS: ABSOLUTE LYMPHOCYTES (AUTO) 0.5 10^3/uL (0.5-4.7); ABSOLUTE MONOCYTES (AUTO) 0.4 10^3/uL (0.1-1.4); LYMPHOCYTES % (AUTO) 9.1 % (13-45); TOTAL CELLS COUNTED % (AUTO) 100 %
[2018-04-04 22:17] LABS: VENOUS BLOOD BASE EXCESS 5.2 mmol/L; VENOUS BLOOD HCO3 29.5 mmol/L (20-32); VENOUS BLOOD PCO2 42.4 mmHg (35-63); VENOUS BLOOD PH 7.46 (7.30-7.42)
[2018-04-04 22:18] LABS: ABSOLUTE NEUT (AUTO) 4.1 10^3/uL (1.7-8.2); BASOPHILS % (AUTO) 0.2 % (0-2); EOSINOPHILS % (AUTO) 0.1 % (0-6); HEMATOCRIT 32.3 % (36.0-47.0); MEAN CORPUSCULAR HEMOGLOBIN 30.6 pg (27.0-33.4); MEAN CORPUSCULAR HGB CONC 34.1 g/dL (32.0-36.0); MEAN CORPUSCULAR VOLUME 90 fl (80-97); MONOCYTES % (AUTO) 8.9 % (3-13); PLATELET COUNT 133 10^3/uL (150-450); RED BLOOD COUNT 3.59 10^6/uL (3.72-5.28); RED CELL DISTRIBUTION WIDTH 22.1 % (11.5-14.0); SEGMENTED NEUTROPHILS % (AUTO) 81.7 % (42-78)
[2018-04-04 22:28] LABS: ALANINE AMINOTRANSFERASE 33 U/L (9-52); ALBUMIN 2.8 g/dL (3.5-5.0); ALKALINE PHOSPHATASE 104 U/L (38-126); ANION GAP 8 (5-19); ASPARTATE AMINO TRANSFERASE 30 U/L (14-36); BILIRUBIN,DIRECT 0.5 mg/dL (0.0-0.4); BILIRUBIN,TOTAL 1.4 mg/dL (0.2-1.3); BLOOD UREA NITROGEN 5 mg/dL (7-20); CALCIUM 8.3 mg/dL (8.4-10.2); CARBON DIOXIDE 31 mmol/L (22-30); CHLORIDE 97 mmol/L (98-107); GLUCOSE 89 mg/dL (75-110); POTASSIUM 3.2 mmol/L (3.6-5.0); SODIUM 136.1 mmol/L (137-145); TOTAL PROTEIN 4.9 g/dL (6.3-8.2)
[2018-04-04] MEDS ORDERED: NIFEDIPINE 10 MG CAPSULE PO ONE ×2 (22:39→23:28)
[2018-04-04] MEDS ORDERED: SODIUM POLYSTYRENE SULFONATE 15 GM/60 ML PO ONE (22:56)
[2018-04-04] MEDS ORDERED: NIFEDIPINE 10 MG CAPSULE ONE (23:11)
[2018-04-05 00:43] VITALS: BP 137/86
--- NOTE | 2018-04-05 07:39 | EKG REPORT ---
SEVERITY:- ABNORMAL ECG - SINUS TACHYCARDIA MULTIFORM VENTRICULAR PREMATURE COMPLEXES PROBABLE LVH WITH SECONDARY REPOL ABNRM NONSPECIFIC ST-T CHANGES DIFFUSE : Confirmed by: Edmundo Mabry MD 05-Apr-2018 07:38:21
== END 2018-04-05 00:44 | disposition home or self-care (01) ==
LOC: ER 19:53
DX: I12.0 Hypertensive chronic kidney disease with stage 5 chronic kidney disease or end stage renal disease (principal); N18.6 End stage renal disease; Z99.2 Dependence on renal dialysis; J44.9 Chronic obstructive pulmonary disease, unspecified; R06.02 Shortness of breath; R42 Dizziness and giddiness; R05 Cough; R00.0 Tachycardia, unspecified; Z88.0 Allergy status to penicillin; Z88.8 Allergy status to other drugs, medicaments and biological substances; Z88.6 Allergy status to analgesic agent
CPT/HCPCS: 93005; 99285; 36415; 85025; 80053; 82803; 71045; 93010; A9270 ×2; J3490

== ENCOUNTER 2018-04-10 17:07 | Inpatient (IN) | payer MEDICARE, MEDICAID ==
[2018-04-10] MEDS ORDERED: ASPIRIN 81 MG TABLET, CHEWABLE PO ONE (17:17)
[2018-04-10 17:55] LABS: ABSOLUTE LYMPHOCYTES (AUTO) 0.7 10^3/uL (0.5-4.7); ABSOLUTE MONOCYTES (AUTO) 0.3 10^3/uL (0.1-1.4); ABSOLUTE NEUT (AUTO) 3.2 10^3/uL (1.7-8.2); BASOPHILS % (AUTO) 0.1 % (0-2); EOSINOPHILS % (AUTO) 0.2 % (0-6); HEMATOCRIT 32.6 % (36.0-47.0); HEMOGLOBIN 11.1 g/dL (12.0-15.5); LYMPHOCYTES % (AUTO) 17.1 % (13-45); MEAN CORPUSCULAR HEMOGLOBIN 30.8 pg (27.0-33.4); MEAN CORPUSCULAR HGB CONC 34.1 g/dL (32.0-36.0); MEAN CORPUSCULAR VOLUME 90 fl (80-97); MONOCYTES % (AUTO) 7.6 % (3-13); PLATELET COUNT 135 10^3/uL (150-450); RED BLOOD COUNT 3.61 10^6/uL (3.72-5.28); RED CELL DISTRIBUTION WIDTH 21.4 % (11.5-14.0); TOTAL CELLS COUNTED % (AUTO) 100 %; WHITE BLOOD COUNT 4.2 10^3/uL (4.0-10.5)
--- NOTE | 2018-04-10 18:07 | RADIOLOGY REPORT (SQ) ---
EXAM DESCRIPTION: CHEST SINGLE VIEW COMPLETED DATE/TIME: 04/10/2018 5:56 pm REASON FOR STUDY: bed 16 tachycardia COMPARISON: None. EXAM PARAMETERS: NUMBER OF VIEWS: One view. TECHNIQUE: Single frontal radiographic view of the chest acquired. RADIATION DOSE: NA LIMITATIONS: None. FINDINGS: LUNGS AND PLEURA: No opacities, masses or pneumothorax. No pleural effusion. MEDIASTINUM AND HILAR STRUCTURES: No masses. Contour normal. HEART AND VASCULAR STRUCTURES: Stable cardiomegaly. Normal vasculature. BONES: No acute findings. HARDWARE: Left axillary vascular stent. OTHER: No other significant finding. IMPRESSION: NO ACUTE RADIOGRAPHIC FINDING IN THE CHEST. TECHNICAL DOCUMENTATION: JOB ID: [id number] [employer]- All Rights Reserved Reading location - IP/workstation name: [email or web address]
[2018-04-10 18:11] LABS: ALANINE AMINOTRANSFERASE 33 U/L (9-52); ALBUMIN 3.1 g/dL (3.5-5.0); ALKALINE PHOSPHATASE 114 U/L (38-126); ANION GAP 10 (5-19); ASPARTATE AMINO TRANSFERASE 52 U/L (14-36); BILIRUBIN,DIRECT 0.7 mg/dL (0.0-0.4); BILIRUBIN,TOTAL 1.6 mg/dL (0.2-1.3); CALCIUM 8.2 mg/dL (8.4-10.2); CARBON DIOXIDE 26 mmol/L (22-30); CHLORIDE 100 mmol/L (98-107); CREATINE KINASE 51 U/L (30-135); GLUCOSE 80 mg/dL (75-110); SODIUM 135.8 mmol/L (137-145); TOTAL PROTEIN 5.5 g/dL (6.3-8.2)
--- NOTE | 2018-04-10 18:11 | ER Document Report ---
ED Cardiac - General Chief Complaint: General Weakness Stated Complaint: POSSIBLE TACHYCARDIA Time Seen by Provider: 04/10/18 18:10 Primary Care Provider: Kathleen RIVERA MD [Primary Care Provider] - Follow up as needed Mode of Arrival: Stretcher Information source: Patient Notes: HISTORY OF PRESENT ILLNESS: Patient is a 67-year-old female with a past medical history of multiple chronic health conditions including end-stage renal disease on dialysis Monday//Monday and heart failure who presents with general weakness. Location: Global Onset: 1 week ago Alleviation: None Provocation: Dialysis Quality: "No energy" Radiation: None Severity: "Pretty bad" Timing: Constant History of CAD: None documented Associated symptoms: Denies fevers or chills, no chest pain or swelling of the extremities, does report productive cough REVIEW OF SYSTEMS: CONSTITUTIONAL : Denies fever or chills, no sweats. Denies recent illness. EENT: Denies eye, ear, throat, or mouth pain or symptoms. Denies nasal or sinus congestion. CARDIOVASCULAR: Denies for chest pain. Denies swelling of the legs. RESPIRATORY: Positive for productive cough as well as mild shortness of breath. Denies wheezing. GASTROINTESTINAL: Denies abdominal pain. Denies nausea, vomiting, or diarrhea. Denies constipation. GENITOURINARY: Denies difficulty urinating, painful urination, burning, frequency, or blood in urine. FEMALE GENITOURINARY: Denies vaginal bleeding, abnormal or irregular periods. MUSCULOSKELETAL: Denies neck or back pain or joint pain or swelling. SKIN: Denies rash or skin lesions. HEMATOLOGIC : Denies easy bruising or bleeding. LYMPHATIC: Denies swollen, enlarged glands. NEUROLOGICAL: Denies altered mental status or loss of consciousness. Denies headache. Denies weakness or paralysis or loss of use of either side. Denies problems with gait or speech. Denies sensory or motor loss. PSYCHIATRIC: Denies anxiety or stress or depression. All other systems reviewed and negative. PHYSICAL EXAMINATION: GENERAL: Weak-appearing, well-nourished and in mild acute distress. HEAD: Atraumatic, normocephalic. No scalp deformity, depression, or crepitance. EYES: Pupils are 3 mm and equal/round/reactive to light, extraocular movements intact, sclera anicteric, conjunctiva are normal. ENT: Nares patent bilaterally, oropharynx. Moist mucous membranes. No tonsil hypertrophy. NECK: Normal range of motion, supple without lymphadenopathy. LUNGS: Breath sounds present with mild to moderate crackles bilaterally. No wheezes, rales, or rhonchi. HEART: Irregularly irregular tachycardia without murmurs, rubs, or gallops. 2+ peripheral pulses. Normal capillary refill. ABDOMEN: Soft, nontender, nondistended. Normoactive bowel sounds. No guarding, no rebound. No masses appreciated. BACK: Normal contour, no midline tenderness. Rectal exam deferred. GENITAL/PELVIC: Deferred. EXTREMITIES: Normal range of motion, no pitting or edema. No cyanosis. NEUROLOGICAL: No focal neurological deficits. Moves all extremities spontaneously and on command. PSYCH: Normal mood, normal affect. No suicidal thoughts/ideations. No homocidal thoughts/ideations. No hallucinations. SKIN: Warm, dry, normal turgor, no rashes or lesions noted. ASSESSMENT AND PLAN: This patient is a 67-year-old female who presents with general weakness that appears to be in new onset atrial fibrillation with RVR given no history of the same, patient does not take anticoagulation and does not take rate controlling agents, no reported history of coronary artery disease although you given her chronic conditions a safe assumption is she has a baseline level of coronary atherosclerosis. 1. Will obtain labs, cardiac enzymes, chest x-ray, BNP, blood cultures, lactic a hemanth. 2. Will give IV diltiazem to attempt rate control 3. Will admit to the hospital. TRAVEL OUTSIDE OF THE [place] IN LAST 30 DAYS: No - Related Data Allergies/Adverse Reactions: pseudoephedrine HCl [From Sudafed] Allergy (Intermediate, Verified 11/11/17 09:11) Tongue Swelling aspirin [Aspirin] Allergy (Verified 11/11/17 09:11) Penicillins Allergy (Verified 11/11/17 09:11) KI Inhibitors [Ki Inhibitors] Adverse Reaction (Intermediate, Verified 11/11/17 09:11) Angioedema Past Medical History - General Information source: Patient - Social History Smoking Status: Former Smoker Chew tobacco use (# tins/day): No Frequency of alcohol use: None Drug Abuse: None Lives with: Family Family History: CAD, Malignancy - Colorectal cancer, Other - Cardiomyopathy mother - Past Medical History Cardiac Medical History: Reports: Hx Hypertension Pulmonary Medical History: Reports: Hx Asthma, Hx Bronchitis, Hx COPD EENT Medical History: Reports: None Neurological Medical History: Reports: None Endocrine Medical History: Reports: None Renal/ Medical History: Reports: Hx End Stage Renal Disease, Hx Hemodialysis. Denies: Hx Peritoneal Dialysis Malignancy Medical History: Reports: None GI Medical History: Reports: None. Denies: Hx Cirrhosis, Hx Gastroesophageal Reflux Disease, Hx Hepatitis, Hx Hiatal Hernia, Hx Ulcer Musculoskeletal Medical History: Reports Hx Arthritis, Denies Hx Multiple Sclerosis Skin Medical History: Reports None Psychiatric Medical History: Reports: None Denies: Hx Bipolar Disorder, Hx Depression, Hx Schizophrenia Traumatic Medical History: Reports: None Infectious Medical History: Reports: None. Denies: Hx Hepatitis Past Surgical History: Reports: Hx Hysterectomy, Other - PermCath insertion. First stage left transposed brachial vein fistula.. Denies: Hx Mastectomy, Hx Open Heart Surgery, Hx Pacemaker - Immunizations Immunizations up to date: Yes Hx Diphtheria, Pertussis, Tetanus Vaccination: Yes Physical Exam - Vital signs Vitals: Resp 27 H 04/10/18 17:12 Course - Re-evaluation Re-evalutation: 04/10/18 22:07 Patient is a rate controlled after a total of 25 mg of IV diltiazem as well as 60 mg of oral extended release diltiazem, repeat EKG shows sinus rhythm. Patient does have elevated troponin with no acute ischemic changes on EKG other than tachycardia. Patient is admitted to the hospital. - Vital Signs Vital signs: Temp Pulse Resp BP Pulse Ox 120 H 26 H 171/122 H 100 04/10/18 17:14 04/10/18 19:31 04/10/18 19:31 04/10/18 19:31 - Laboratory Result Diagrams: 04/10/18 17:39 04/10/18 17:39 Laboratory results interpreted by me: 04/10/18 04/10/18 17:39 17:39 RBC 3.61 L Hgb 11.1 L Hct 32.6 L RDW 21.4 H Plt Count 135 L Sodium 135.8 L Potassium 3.0 L* BUN 6 L D Creatinine 1.75 H Est GFR ( Amer) 35 L Est GFR (Non-Af Amer) 29 L Calcium 8.2 L Total Bilirubin 1.6 H Direct Bilirubin 0.7 H AST 52 H Total Protein 5.5 L Albumin 3.1 L - EKG Interpretation by Me Rate: Tachycardia Rhythm: A.Fib [place]/QRS: No: Right axis deviation, Left axis deviation, RBBB, LBBB, IVCD, LAHB/LAFB, LPHB/LPFB, Bifasicular block Voltage: No: Increased voltage, Consistant with LVH, Decreased voltage, Throughout, Limb leads P Waves: No: ALISON, LAE, Absent, AV Dissociation, Other Heart block present: No: 1st Degree, Mobitz 1, Mobitz 2, CHB (3rd degree block) When compared to previous EKG there are: Changes noted - New onset atrial fibrillation - Consults Dr. Wiley Time consulted: 21:20 - "the patient fired me as her doctor so I kenn absolutely not admit this patient" Dr. Jones Time consulted: 21:30 - will admit Consulted provider: will come to ER Critical Care Note - Critical Care Note Total time excluding time spent on procedures (mins): 120 Comments: Critical care time spent obtaining history from patient or surrogate, discussions with consultants, development of treatment plan with patient or surrogate, evaluation of patient's response to treatment, examination of patient, ordering and performing treatments and interventions, ordering and review of laboratory studies, re-evaluation of patient's condition, ordering and review of radiographic studies and review of old charts Discharge - Discharge Clinical Impression: Non-STEMI (non-ST elevated myocardial infarction), Atrial fibrillation, new onset Chronic renal failure Qualifiers: Chronic kidney disease stage: unspecified stage Qualified Code(s): N18.9 - Ch ronic kidney disease, unspecified Condition: Stable Disposition: ADMITTED INPATIENT Admitting Provider: Hospitalist Unit Admitted: Telemetry Referrals: Kathleen RIVERA MD [Primary Care Provider] - Follow up as needed
[2018-04-10 18:22] LABS: CREATINE KINASE MB 0.93 ng/mL (<4.55)
[2018-04-10 18:28] LABS: BLOOD UREA NITROGEN 6 mg/dL (7-20)
[2018-04-10 18:32] LABS: TROPONIN I 0.294 ng/mL
[2018-04-10] MEDS ORDERED: DILTIAZEM HCL INJ 25 MG/5 ML VIAL IV ONE ×2 (19:04→20:56)
[2018-04-10] MEDS ORDERED: POTASSIUM CHLORIDE 10 MEQ CAPSULE.ER PO ONE (19:07)
[2018-04-10] MEDS ORDERED: HEPARIN SOD (PORCINE) 1,000 UNIT/ML 10 ML VIAL IV ONE (20:21)
[2018-04-10] MEDS ORDERED: HEPARIN SODIUM,PORCINE/D5W 25,000 UNIT/250 ML RTUINJ IV PRN (20:21)
[2018-04-10] MEDS ORDERED: DILTIAZEM HCL 60 MG TABLET PO ONE (20:21)
[2018-04-10 20:52] LABS: INTERNATIONAL RATION (INR) 1.04; PROTHROMBIN TIME 14.1 SEC (11.4-15.4)
[2018-04-10 20:53] LABS: PARTIAL THROMBOPLASTIN TIME 32.3 SEC (23.5-35.8)
--- NOTE | 2018-04-10 21:27 | EKG REPORT ---
SEVERITY:- ABNORMAL ECG - SINUS TACHYCARDIA MULTIPLE VENTRICULAR PREMATURE COMPLEXES PROBABLE LVH WITH SECONDARY REPOL ABNRM : Confirmed by: Amaya Duff 10-Apr-2018 21:26:50
--- NOTE | 2018-04-10 21:28 | EKG REPORT ---
SEVERITY:- ABNORMAL ECG - SINUS RHYTHM WITH FREQUENT APCs, CAN NOT R/O TRANSIENT ATRIAL FLUTTER/FIBRILLATION, A-RATE 330 PROBABLE LVH WITH SECONDARY REPOL ABNRM REC REPEAT EKG : Confirmed by: Amaya Duff 10-Apr-2018 21:28:29
[2018-04-10] MEDS ORDERED: MAG HYDROX/AL HYDROX/SIMETH SUSP 30 ML UDCUP PO PRN (21:39)
[2018-04-10] MEDS ORDERED: MAGNESIUM HYDROXIDE SUSP 30 ML UDCUP PO PRN (21:39)
[2018-04-10] MEDS ORDERED: ONDANSETRON HCL INJ/PF 4 MG/2 ML SDV IV PRN (21:39)
[2018-04-10] MEDS ORDERED: ONDANSETRON 4 MG TAB.RAPDIS PO PRN (21:39)
[2018-04-10] MEDS ORDERED: ACETAMINOPHEN 325 MG TABLET PO PRN (21:43)
[2018-04-10] MEDS ORDERED: ALBUTEROL SULFATE 0.083% NEB 2.5 MG/3 ML AMPUL NEB PRN (21:43)
[2018-04-10] MEDS ORDERED: ACETAMINOPHEN 650 MG SUPP.RECT PR PRN (21:43)
[2018-04-10] MEDS ORDERED: HEPARIN SOD (PORCINE) 5,000 UNIT/ML 1 ML SYRINGE SUBCUT SCH (22:00)
[2018-04-10] MEDS: GUAIFENESIN 600 MG TABLET.SA PO SCH (22:04)
[2018-04-10] MEDS: APIXABAN 2.5 MG TABLET PO SCH (22:04)
[2018-04-10] MEDS: METOPROLOL SUCCINATE 50 MG TAB.SR.24H PO SCH (22:04)
[2018-04-11] MEDS ORDERED: DILTIAZEM HCL 90 MG TABLET ONE (01:35)
[2018-04-11] MEDS: DILTIAZEM HCL 90 MG TABLET PO SCH ×4 (01:43→18:21)
[2018-04-11] MEDS ORDERED: LORAZEPAM INJ 2 MG/1 ML VIAL IV PRN (02:08)
[2018-04-11] MEDS: DEXTROSE 5%-WATER 250 ML with NOREPINEPHRINE BITARTRATE 4 MG IV PRN ×8 (02:58→18:45)
[2018-04-11] MEDS ORDERED: ROCURONIUM BROMIDE INJ 50 MG/5 ML VIAL IV ONE ×2 (03:13→09:14)
[2018-04-11] MEDS ORDERED: ATROPINE SULFATE INJ 1 MG/1 ML VIAL IV ONE (03:13)
[2018-04-11] MEDS ORDERED: ETOMIDATE INJ/PF 20 MG/10 ML SDV IV ONE ×2 (03:13→16:06)
[2018-04-11] MEDS: MIDAZOLAM HCL 50 MG/100 ML RTUINJ IV PRN ×4 (04:00→16:52)
[2018-04-11 04:14] LABS: ABSOLUTE BASOPHILS # (AUTO) 0.1 10^3/uL (0.0-0.2); ABSOLUTE LYMPHOCYTES (AUTO) 0.4 10^3/uL (0.5-4.7); ABSOLUTE MONOCYTES (AUTO) 0.3 10^3/uL (0.1-1.4); ABSOLUTE NEUT (AUTO) 4.6 10^3/uL (1.7-8.2); BASOPHILS % (AUTO) 1.5 % (0-2); EOSINOPHILS % (AUTO) 0.6 % (0-6); HEMATOCRIT 28.3 % (36.0-47.0); HEMOGLOBIN 9.5 g/dL (12.0-15.5); LYMPHOCYTES % (AUTO) 7.8 % (13-45); MEAN CORPUSCULAR HEMOGLOBIN 30.8 pg (27.0-33.4); MEAN CORPUSCULAR HGB CONC 33.7 g/dL (32.0-36.0); MEAN CORPUSCULAR VOLUME 91 fl (80-97); MONOCYTES % (AUTO) 5.1 % (3-13); PLATELET COUNT 107 10^3/uL (150-450); RED CELL DISTRIBUTION WIDTH 21.9 % (11.5-14.0); TOTAL CELLS COUNTED % (AUTO) 100 %; WHITE BLOOD COUNT 5.5 10^3/uL (4.0-10.5)
--- NOTE | 2018-04-11 05:38 | RADIOLOGY REPORT (SQ) ---
EXAM DESCRIPTION: XR CHEST 1 VIEW COMPLETED DATE/TME: 04/11/2018 00:00 CLINICAL HISTORY: 67 years, Female, INTUBATION COMPARISON: 04/10/2018 chest NUMBER OF VIEWS: 1 TECHNIQUE: Supine portable chest LIMITATIONS: None. FINDINGS: Overlying cardiac leads, wires, and artifact. Endotracheal tube with the tip approximately 1.8 cm above the kelly. Enteric tube in place. No discrete pneumothorax. Endovascular graft material left axilla. Atheromatous change thoracic aorta. Osteopenia. Mild pulmonary vascular congestion. Suspected small left pleural effusion. Minimal right basilar infiltrate IMPRESSION: Overlying artifact. Endotracheal and enteric tubes are in place. Mild pulmonary vascular congestion. Small left effusion. Minimal right basilar infiltrate copyright 2010 [employer]- All Rights Reserved
[2018-04-11 05:44] LABS: ANION GAP 11 (5-19); BLOOD UREA NITROGEN 9 mg/dL (7-20); CARBON DIOXIDE 22 mmol/L (22-30); CHLORIDE 103 mmol/L (98-107); CHOLESTEROL 85.02 mg/dL (0-200); CREATINE KINASE MB 0.9 ng/mL (<4.55); FREE T3 3.5 pg/mL (2.77-5.27); FREE T4 (FREE THYROXINE) 2.83 ng/dL (0.78-2.19); GLUCOSE 123 mg/dL (75-110); POTASSIUM 3.9 mmol/L (3.6-5.0); SODIUM 136.4 mmol/L (137-145); THYROID STIMULATING HORMONE 7.7 uIU/mL (0.47-4.68); TRIGLYCERIDES 61 mg/dL (<150); VLDL CHOLESTEROL 12.2 mg/dL (10-31)
[2018-04-11 05:53] LABS: DIRECT LDL < 30 mg/dL (<100)
[2018-04-11] MEDS ORDERED: DOPAMINE HCL/DEXTROSE 5%-WATER 800 MG/250 ML RTUINJ IV PRN (05:53)
[2018-04-11 05:56] LABS: TROPONIN I 0.273 ng/mL
[2018-04-11 06:10] LABS: CREATINE KINASE 58 U/L (30-135)
--- NOTE | 2018-04-11 06:27 | PDOC H&P ---
History of Present Illness Admission Date/PCP: Kathleen RIVERA MD Patient complains of: Weakness History of Present Illness: JUANJOSE UDRAN is a 67 year old female who presented to the emergency room with an acute history of feeling of generalized weakness. She admits that she developed an uneasy feeling and weakness earlier in the day after having receiv ed her dialysis treatment. She insists that she had to be given fluid today instead of having them removed fluid. She denies more specific complaints such as chest pain, dyspnea, palpitations, fever and chills. Her weakness has been constantly present and gradually worsening since it began earlier in the day. Her weakness is moderate to severe and is unlike any experience she has had in the past. In the emergency room she was found to have atrial fibrillation with rapid ventricular response. She has no prior history of atrial fibrillation. She is easily controlled with diltiazem in the emergency room however because the atrial fibrillation is new in onset she will require further evaluation and will therefore be admitted observation status. Past Medical History Cardiac Medical History: Reports: Hypertension Denies: Atrial Fibrillation, Coronary Artery Disease Pulmonary Medical History: Reports: Asthma, Bronchitis, Chronic Obstructive Pulmonary Disease (COPD) EENT Medical History: Reports: None Neurological Medical History: Denies: Multiple Sclerosis, Seizures Endocrine Medical History: Denies: Diabetes Mellitus Type 1, Diabetes Mellitus Type 2, Hyperthyroidism, Hypothyroidism Renal/ Medical History: Reports: Chronic Kidney Disease, End Stage Renal Disease Denies: Nephrolithiasis Malignancy Medical History: Reports: None GI Medical History: Denies: Cirrhosis, Gastroesophageal Reflux Disease, Hepatitis, Hiatal Hernia Musculoskeltal Medical History: Reports: Arthritis Denies: Gout Skin Medical History: Denies: Eczema, Psoriasis Psychiatric Medical History: Reports: Tobacco Dependency Denies: Alcohol Dependency, Substance Abuse Traumatic Medical History: Reports: None Hematology: Denies: Anemia, Sickle Cell Disease, Bleeding Tendencies Infectious Medical History: Reports: None Past Surgical History Past Surgical History: Reports: Hysterectomy, Other - PermCath insertion. First stage left transposed brachial vein fistula. Social History Information Source: Patient Lives with: Spouse/Significant other Smoking Status: Former Smoker Frequency of Alcohol Use: None Hx Recreational Drug Use: No Drugs: None Hx Prescription Drug Abuse: No - Advance Directive Resuscitation Status: Full Code Surrogate healthcare decision maker:: Benedicto Kirkland Family History Family History: CAD, Hypertension, Malignancy - Colorectal cancer, Other - Cardiomyopathy mother, kidney disease Parental Family History Reviewed: Yes Children Family History Reviewed: No Sibling(s) Family History Reviewed.: Yes Medication/Allergy Home Medications: Albuterol Sulfate [Proair HFA Inhalation Aerosol 8.5 gm MDI] 2 puff IH Q6HP PRN 10/21/14 Hydralazine HCl 100 mg PO TID 02/07/15 Nifedipine [Procardia XL 30 mg Tablet] 60 mg PO Q12 07/30/15 Budesonide/Formoterol Fumarate [Symbicort 160-4.5 Mcg Inhaler] 2 puff IH BID 06/13/17 Clonidine HCl [Catapres 0.3 mg Tablet] 0.3 mg PO TID 01/01/18 Budesonide/Formoterol Fumarate [Symbicort HFA 160-4.5 mcg Inhaler 6 gm] 2 puff IH Q12 inhaler 01/08/18 Carvedilol [Coreg 12.5 mg Tablet] 25 mg PO Q12A 30 Days #60 tablet 01/08/18 Docusate Sodium [Colace 100 mg Capsule] 100 mg PO DAILY capsule 01/08/18 Guaifenesin [Mucinex Sr 600 mg Tablet.sa] 600 mg PO Q12 tablet.sa 01/08/18 Prednisone 5 mg PO DAILY 16 Days #40 tablet 01/08/18 Tiotropium [place] [Spiriva Handihaler 5 Cap/Kit (18 Mcg/Cap)] 1 cap IH DAILY 30 Days #1 kit 01/08/18 Allergies/Adverse Reactions: pseudoephedrine HCl [From Sudafed] Allergy (Intermediate, Verified 11/11/17 09:11) Tongue Swelling aspirin [Aspirin] Allergy (Verified 11/11/17 09:11) Penicillins Allergy (Verified 11/11/17 09:11) KI Inhibitors [Ki Inhibitors] Adverse Reaction (Intermediate, Verified 11/11/17 09:11) Angioedema Review of Systems Constitutional: ABSENT: chills, fever(s) Eyes: ABSENT: visual disturbances, other - Ocular pain Ears: ABSENT: hearing changes, other - Ear pain Nose, Mouth, and Throat: ABSENT: mouth pain, sore throat Cardiovascular: ABSENT: chest pain, dyspnea on exertion, edema, orthropnea, palpitations Respiratory: ABSENT: cough, dyspnea Gastrointestinal: ABSENT: abdominal pain, constipation, diarrhea, nausea, vo miting Genitourinary: ABSENT: dysuria, hematuria Musculoskeletal: ABSENT: back pain, joint swelling Integumentary: ABSENT: pruritus, rash Neurological: ABSENT: confusion, convulsions, memory loss, tremor(s) Psychiatric: ABSENT: anxiety, depression Endocrine: ABSENT: cold intolerance, heat intolerance Hematologic/Lymphatic: ABSENT: easy bleeding, easy bruising Physical Exam Vital Signs: Temp Pulse Resp BP Pulse Ox 120 H 26 H 171/122 H 100 04/10/18 17:14 04/10/18 19:31 04/10/18 19:31 04/10/18 19:31 Intake & Output 04/08/18 04/09/18 04/10/18 23:59 23:59 23:59 Weight 51.5 kg General appearance: PRESENT: cooperative, mild distress - Anxious and hyperventilating, thin Head exam: PRESENT: atraumatic, normocephalic Eye exam: PRESENT: conjunctiva pink, EOMI. ABSENT: scleral icterus Ear exam: PRESENT: normal external ear exam. ABSENT: bleeding, drainage Mouth exam: PRESENT: dry mucosa, neck supple Neck exam: ABSENT: JVD, thyromegaly, tracheal deviation Respiratory exam: PRESENT: decreased breath sounds - Decreased breath sounds in all anne with poor air movement noted, prolonged expiratory phas - Moderately prolonged expiratory phase in all anne, symmetrical, unlabored, wheezes - Expiratory wheezes noted in all anne Cardiovascular exam: PRESENT: irregular rhythm - Irregularly irregular rate and rhythm. ABSENT: clicks, gallop, rubs Pulses: PRESENT: normal radial pulses, normal dorsalis pedis pul, other - Arteriovenous shunt noted in the left upper extremity Vascular exam: PRESENT: normal capillary refill. ABSENT: pallor GI/Abdominal exam: PRESENT: normal bowel sounds, soft Rectal exam: PRESENT: deferred Extremities exam: ABSENT: joint swelling, pedal edema Musculoskeletal exam: PRESENT: full ROM, normal inspection Neurological exam: PRESENT: alert, oriented to person, oriented to place, oriented to time, oriented to situation, CN II-XII grossly intact. ABSENT: motor sensory deficit Psychiatric exam: PRESENT: anxious, normal mood Skin exam: PRESENT: dry, intact, warm. ABSENT: jaundice, rash, urticaria Results Laboratory Results: 04/10/18 17:39 04/10/18 17:39 04/10/18 04/10/18 17:39 17:39 WBC 4.2 RBC 3.61 L Hgb 11.1 L Hct 32.6 L MCV 90 MCH 30.8 MCHC 34.1 RDW 21.4 H Plt Count 135 L Seg Neutrophils % 75.0 Lymphocytes % 17.1 Monocytes % 7.6 Eosinophils % 0.2 Basophils % 0.1 Absolute Neutrophils 3.2 Absolute Lymphocytes 0.7 Absolute Monocytes 0.3 Absolute Eosinophils 0.0 Absolute Basophils 0.0 Sodium 135.8 L Potassium 3.0 L* Chloride 100 Carbon Dioxide 26 Anion Gap 10 BUN 6 L D Creatinine 1.75 H Est GFR ( Amer) 35 L Est GFR (Non-Af Amer) 29 L Glucose 80 Calcium 8.2 L Total Bilirubin 1.6 H AST 52 H ALT 33 Alkaline Phosphatase 114 Total Protein 5.5 L Albumin 3.1 L 04/10/18 04/10/18 17:39 17:39 Creatine Kinase 51 CK-MB (CK-2) 0.93 Troponin I 0.294 Impressions: Chest X-Ray 04/10/18 17:17 IMPRESSION: NO ACUTE RADIOGRAPHIC FINDING IN THE CHEST. Assessment & Plan - Diagnosis (1) Atrial fibrillation, new onset Is this a current diagnosis for this admission?: Yes Plan: Patient will be evaluated with an echocardiogram and serial cardiac enzymes as well as a thyroid profile and a lipid profile. She will be treated with an appropriate rate controlling agent and this will probably require some adjustment of her antihypertensive medications. (2) COPD exacerbation Is this a current diagnosis for this admission?: Yes Plan: Patient will be treated with albuterol nebulizer treatments every hour on an as needed basis for wheezing. Patient will be reevaluated on a regular basis for determination of need of more aggressive therapy. (3) Hypertension Qualifiers: Hypertension type: essential hypertension Qualified Code(s): I10 - Essential (primary) hypertension Is this a current diagnosis for this admission?: Yes Plan: Patient's antihypertensive regiment will need to be adjusted for accommodation of rate controlling agents for her atrial fibrillation. Metoprolol will be substituted for carvedilol as it is more friendly in light of her COPD. Additionally she will be started on Cardizem and as such her clonidine, hydralazine and Procardia XL will be held. (4) End stage renal disease on dialysis Is this a current diagnosis for this admission?: Yes Plan: Patient will be continued on a regular dialysis schedule on Monday and Monday. - Time Time Spent: 30 to 50 Minutes Critical Time spent with patient: Less than 15 minutes Anticipated discharge: Home - Inpatient Certification Based on my medical assessment, after consideration of the patient's comorbidities, presenting symptoms, or acuity I expect that the services needed warrant INPATIENT care.: No I certify that my determination is in accordance with my understanding of Medicare's requirements for reasonable and necessary INPATIENT services [42 CFR 412.3e].: No Medical Necessity: Need Close Monitoring Due to Risk of Patient Decompensation, Need For Continuous Telemetry Monitoring, Risk of Complication if Not Cared For in Hospital
[2018-04-11] MEDS: LANSOPRAZOLE 30 MG TAB.RAP.DR PO SCH ×2 (06:31→16:28)
[2018-04-11 09:39] LABS: CREATINE KINASE MB 1.06 ng/mL (<4.55); TROPONIN I 0.262 ng/mL
[2018-04-11] MEDS: GUAIFENESIN 600 MG TABLET.SA PO SCH ×2 (09:59→21:31)
[2018-04-11] MEDS: METOPROLOL SUCCINATE 50 MG TAB.SR.24H PO SCH ×2 (09:59→21:30)
[2018-04-11] MEDS: TIOTROPIUM BROMIDE DPI 5 CAP/KIT (18 MCG/CAP) IH SCH (09:59)
[2018-04-11] MEDS: DOCUSATE SODIUM 100 MG CAPSULE PO SCH ×2 (09:59→18:22)
[2018-04-11] MEDS ORDERED: EPOETIN ALFA INJ 20000 UNIT/1 ML VIAL (RENAL) IV PRN (11:59)
--- NOTE | 2018-04-11 13:16 | PDOC PROGRESS REPORT ---
Subjective Progress Note for:: 04/11/18 Subjective:: Patient experienced cardiac arrest earlier this morning. Is currently intubated and on pressor therapy. Reason For Visit: NEW ONSET AFIB WITH RVR End-stage kidney disease with hemodialysis Physical Exam Vital Signs: Temp Pulse Resp BP Pulse Ox 99.3 F 77 22 H 127/72 H 100 04/11/18 12:36 04/11/18 12:36 04/11/18 12:36 04/11/18 12:36 04/11/18 12:36 Intake & Output 04/10/18 04/11/18 04/12/18 06:59 06:59 06:59 Intake Total 9 417 Balance 9 417 Weight 51.5 kg 50.9 kg General appearance: PRESENT: no acute distress, other - Currently intubated Eye exam: PRESENT: conjunctiva pink Ear exam: PRESENT: normal external ear exam Mouth exam: PRESENT: other - Endotracheal tube in place Respiratory exam: PRESENT: decreased breath sounds, rales - Faint rales bilaterally, symmetrical, unlabored. ABSENT: accessory muscle use, rhonchi, wheezes Cardiovascular exam: PRESENT: RRR, +S1, +S2 GI/Abdominal exam: PRESENT: normal bowel sounds, soft. ABSENT: distended, ten derness Rectal exam: PRESENT: deferred Gentrourinary exam: PRESENT: indwelling catheter Extremities exam: ABSENT: pedal edema Musculoskeletal exam: PRESENT: other - Decreased muscle mass Neurological exam: PRESENT: other - Sedated Psychiatric exam: PRESENT: other - Sedated Focused psych exam: PRESENT: other - Unable to assess Results Laboratory Results: 04/11/18 03:49 04/11/18 03:49 04/10/18 04/10/18 04/11/18 17:39 17:39 03:49 WBC 4.2 5.5 RBC 3.61 L 3.10 L Hgb 11.1 L 9.5 L Hct 32.6 L 28.3 L MCV 90 91 MCH 30.8 30.8 MCHC 34.1 33.7 RDW 21.4 H 21.9 H Plt Count 135 L 107 L Seg Neutrophils % 75.0 85.0 H Lymphocytes % 17.1 7.8 L Monocytes % 7.6 5.1 Eosinophils % 0.2 0.6 Basophils % 0.1 1.5 Absolute Neutrophils 3.2 4.6 Absolute Lymphocytes 0.7 0.4 L Absolute Monocytes 0.3 0.3 Absolute Eosinophils 0.0 0.0 Absolute Basophils 0.0 0.1 Sodium 135.8 L Potassium 3.0 L* Chloride 100 Carbon Dioxide 26 Anion Gap 10 BUN 6 L D Creatinine 1.75 H Est GFR ( Amer) 35 L Est GFR (Non-Af Amer) 29 L Glucose 80 Calcium 8.2 L Magnesium Total Bilirubin 1.6 H AST 52 H ALT 33 Alkaline Phosphatase 114 Total Protein 5.5 L Albumin 3.1 L Triglycerides Cholesterol LDL Cholesterol Direct VLDL Cholesterol HDL Cholesterol TSH Free T4 Free T3 pg/mL 04/11/18 04/11/18 03:49 03:49 WBC RBC Hgb Hct MCV MCH MCHC RDW Plt Count Seg Neutrophils % Lymphocytes % Monocytes % Eosinophils % Basophils % Absolute Neutrophils Absolute Lymphocytes Absolute Monocytes Absolute Eosinophils Absolute Basophils Sodium 136.4 L Potassium 3.9 Chloride 103 Carbon Dioxide 22 Anion Gap 11 BUN 9 Creatinine 2.26 H Est GFR ( Amer) 26 L Est GFR (Non-Af Amer) 22 L Glucose 123 H Calcium 8.0 L Magnesium 1.7 Total Bilirubin AST ALT Alkaline Phosphatase Total Protein Albumin Triglycerides 61 Cholesterol 85.02 LDL Cholesterol Direct < 30 VLDL Cholesterol 12.2 HDL Cholesterol 76 TSH 7.70 H Free T4 2.83 H Free T3 pg/mL 3.50 04/10/18 04/10/18 04/10/18 17:39 17:39 21:06 Creatine Kinase 51 CK-MB (CK-2) 0.93 Troponin I 0.294 0.272 NT-Pro-B Natriuret Pep 04/11/18 04/11/18 04/11/18 03:49 03:49 08:56 Creatine Kinase 58 56 CK-MB (CK-2) 0.90 Troponin I 0.273 NT-Pro-B Natriuret Pep [id number] H 04/11/18 08:56 Creatine Kinase CK-MB (CK-2) 1.06 Troponin I 0.262 NT-Pro-B Natriuret Pep Impressions: Chest X-Ray 04/11/18 00:00 IMPRESSION: Overlying artifact. Endotracheal and enteric tubes are in place. Mild pulmonary vascular congestion. Small left effusion. Minimal right basilar infiltrate copyright 2010 [employer]- All Rights Reserved Assessment & Plan - Diagnosis (1) Cardiac arrest Is this a current diagnosis for this admission?: Yes Plan: The patient was initially admitted for new onset atrial fibrillation with rapid ventricular response. During the night she experienced cardiac arrest. Resuscitation was successful. Cardiology will be seeing the patient. She remains intubated at this time. She still requires vasopressor therapy. (2) Non-STEMI (non-ST elevated myocardial infarction) Is this a current diagnosis for this admission?: Yes Plan: Elevated troponins without obvious acute ST elevation. The serum troponins could be elevated from CPR and likely chronically elevated from her chronic kidney disease. We will continue to monitor. Please also see cardiology note. Currently on beta-catrachita therapy. She is going to get a central line and so no fragments at this time. After the procedure we will discuss with cardiology regarding appropriate anticoagulation. (3) Atrial fibrillation, new onset Is this a current diagnosis for this admission?: Yes Plan: The patient in fact is back in sinus rhythm. (4) Renal failure, chronic Qualifiers: Chronic kidney disease stage: unspecified stage Qualified Code(s): N18.9 - Chronic kidney disease, unspecified Is this a current diagnosis for this admission?: Yes Plan: Nephrology is aware. The plan is for hemodialysis today. (5) Acute hypoxemic respiratory failure Is this a current diagnosis for this admission?: Yes Plan: Secondary to cardiac arrest with volume overload likely contributing. Wean ventilator as tolerated - Time Time Spent with patient: 35 or more minutes Medications reviewed and adjusted accordingly: Yes - Plan Summary Plan Summary: Please also see nephrology cardiology notes.
[2018-04-11] MEDS: BUMETANIDE INJ/PF 1 MG/4 ML SDV IV ONE ×2 (13:42→14:48)
[2018-04-11] MEDS ORDERED: DOPAMINE HCL/D5W 800 MG/250 ML RTU BAG IV ONE (15:14)
[2018-04-11] MEDS ORDERED: EPINEPHRINE INJ 1 MG/10 ML DISP.SYRIN ONE (15:14)
[2018-04-11] MEDS ORDERED: DOPAMINE HCL 800 MG/D5W 250 ML IV PRN (16:01)
[2018-04-11 16:11] LABS: CREATINE KINASE MB 0.65 ng/mL (<4.55)
[2018-04-11 16:17] LABS: TROPONIN I 0.214 ng/mL
[2018-04-11] MEDS ORDERED: PROPOFOL 1,000 MG/100 ML INFUS..BTL IV PRN (16:37)
--- NOTE | 2018-04-11 18:01 | PDOC CONSULTATION ---
Consultation Consult Date: 04/11/18 History of Present Illness Admission Date/PCP: 04/10/18 21:40 Kathleen RIVERA MD History of Present Illness: JUANJOSE DURAN is a 67 year old female With history of ESRD, heart in the background of hypertension was sent to the ER because of progressive weakness while she is undergoing dialysis along with regular tachycardia of approx 120/min.I saw her on dialysis at [facility] yesterday and she was sitting co mfortably but she was having periods of confusion. She looked dehydrated. Therefore I gave her approximately 1.5 L of saline while she underwent a short dialysis. As she had an irregular heart rate we decided to shorten the treatment and she was sent to the ER. After further evaluations in the ER she was admitted as she was found to have rapid A. fib with rapid ventricular response. She was admitted to the ICU and was being managed accordingly. However earlier this morning she arrested. Chart review was done and discussions were done with the treating nurse. She had denied more specific complaints such as chest pain, dyspnea, palpitations, fever and chills. Currently she is being seen while undergoing dialysis. She is intubated and sedated. Plan to remove approximately 1 L as tolerated. She is currently on mutiple pressor agents. Past Medical History Cardiac Medical History: Reports: Hypertension-primary Denies: Atrial Fibrillation, Coronary Artery Disease Pulmonary Medical History: Reports: Asthma, Bronchitis, Chronic Obstructive Pulmonary Disease (COPD) EENT Medical History: Reports: None Neurological Medical History: Reports: None Denies: Multiple Sclerosis, Seizures Endocrine Medical History: Reports: None Denies: Diabetes Mellitus Type 1, Diabetes Mellitus Type 2, Hyperthyroidism, Hypothyroidism Complications of Diabetes: Reports: None Renal/ Medical History: Reports: End Stage Renal Disease, Secondary Hyperparathyroidism Denies: Benign Prostatic Hyperplasia, Nephrolithiasis Malignancy Medical History: Reports: None GI Medical History: Reports: None Denies: Cirrhosis, Gastroesophageal Reflux Disease, Hepatitis, Hiatal Hernia Musculoskeltal Medical History: Reports: Arthritis Denies: Gout Skin Medical History: Reports: None Denies: Eczema, Psoriasis Psychiatric Medical History: Reports: None, Tobacco Dependency Denies: Alcohol Dependency, Bipolar Disorder, Depression, Substance Abuse Traumatic Medical History: Reports: None Infectious Medical History: Reports: None Hematology Medical History: Reports Anemia of Chronic Kidney Disease Past Surgical History Past Surgical History: Reports: Hysterectomy, Other - PermCath insertion. First stage left transposed brachial vein fistula. Denies: Mastectomy, Pacemaker Social History Lives with: Spouse/Significant other Smoking Status: Unknown if Ever Smoked Frequency of Alcohol Use: None Hx Recreational Drug Use: No Drugs: None Hx Prescription Drug Abuse: No - Advance Directive Resuscitation Status: Full Code Family History Parental Family History Reviewed: No - She is intubated and sedated. Children Family History Reviewed: No Sibling(s) Family History Reviewed.: No Medication/Allergy Home Medications: Albuterol Sulfate [Proair HFA Inhalation Aerosol 8.5 gm MDI] 2 puff IH BIDP PRN 04/11/18 Aspirin [Aspirin 81 mg Chewable Tablet] 81 mg PO DAILY 04/11/18 Atorvastatin Calcium [Lipitor 40 mg Tablet] 40 mg PO QHS 04/11/18 Budesonide/Formoterol Fumarate [Symbicort HFA 160-4.5 mcg Inhaler 6 gm] 2 puff IH Q12 04/11/18 Carvedilol [Coreg 12.5 mg Tablet] 37.5 mg PO Q12 04/11/18 Ergocalciferol (Vitamin D2) [Drisdol 50,000 unit (1.25MG) Capsule] 50,000 unit PO PATINO@1000 04/11/18 Ferric Citrate [Auryxia] 1 tab PO .SNACKS 04/11/18 Ferric Citrate [Auryxia] 2 tab PO MEALS 04/11/18 Furosemide [Lasix 40 mg Tablet] 40 mg PO DAILY 04/11/18 Isosorb Dinit/Hydralazine HCl [Bidil 20-37.5 mg Tablet] 0.5 tab PO TID 04/11/18 Lidocaine/Prilocaine [Emla Cream] 1 applic TOP .DIALYSIS 04/11/18 Lisinopril [Prinivil 5 mg Tablet] 5 mg PO DAILY 04/11/18 Mag Hydrox/Al Hydrox/Simeth [Maalox Plus Susp 30 Udcup] 30 ml PO QIDP PRN 04/11/18 Tiotropium [place] [Spiriva Handihaler 5 Cap/Kit (18 Mcg/Cap)] 1 cap IH DAILY 04/11/18 Vit B Comp No.3/Folic/C/Biotin [[place]aven-Max Rx Tablet] 1 tab PO DAILY 04/11/18 Allergies/Adverse Reactions: pseudoephedrine HCl [From Sudafed] Allergy (Intermediate, Verified 11/11/17 09:11) Tongue Swelling aspirin [Aspirin] Allergy (Verified 11/11/17 09:11) Penicillins Allergy (Verified 11/11/17 09:11) KI Inhibitors [Ki Inhibitors] Adverse Reaction (Intermediate, Verified 11/11/17 09:11) Angioedema Review of Systems ROS unobtainable: Due to mental status Physical Exam Vital Signs: Temp Pulse Resp BP Pulse Ox 97.3 F 73 14 129/85 H 99 04/11/18 16:21 04/11/18 16:10 04/11/18 16:21 04/11/18 16:21 04/11/18 16:21 Intake & Output 04/10/18 04/11/18 04/12/18 06:59 06:59 06:59 Intake Total 9 1005 Output Total 537 Balance 9 468 Weight 51.5 kg 50.9 kg General appearance: PRESENT: no acute distress Exam: Is currently intubated and sedated. Discussions were done with the treating nurse. Eye exam: PRESENT: EOMI, PERRLA. ABSENT: nystagmus Neck exam: ABSENT: lymphadenopathy, meningismus, tenderness, thyromegaly, tracheal deviation Respiratory exam: PRESENT: clear to auscultation stella. ABSENT: crackles, rhonchi Cardiovascular exam: PRESENT: +S1, +S2 GI/Abdominal exam: PRESENT: normal bowel sounds, soft. ABSENT: organomegaly, tenderness Extremities exam: ABSENT: pedal edema Skin exam: ABSENT: cyanosis, erythema, mottled, rash Results Laboratory Results: 04/11/18 03:49 04/11/18 03:49 04/10/18 04/10/18 04/11/18 17:39 17:39 03:49 WBC 4.2 5.5 RBC 3.61 L 3.10 L Hgb 11.1 L 9.5 L Hct 32.6 L 28.3 L MCV 90 91 MCH 30.8 30.8 MCHC 34.1 33.7 RDW 21.4 H 21.9 H Plt Count 135 L 107 L Seg Neutrophils % 75.0 85.0 H Lymphocytes % 17.1 7.8 L Monocytes % 7.6 5.1 Eosinophils % 0.2 0.6 Basophils % 0.1 1.5 Absolute Neutrophils 3.2 4.6 Absolute Lymphocytes 0.7 0.4 L Absolute Monocytes 0.3 0.3 Absolute Eosinophils 0.0 0.0 Absolute Basophils 0.0 0.1 Sodium 135.8 L Potassium 3.0 L* Chloride 100 Carbon Dioxide 26 Anion Gap 10 BUN 6 L D Creatinine 1.75 H Est GFR ( Amer) 35 L Est GFR (Non-Af Amer) 29 L Glucose 80 Calcium 8.2 L Magnesium Total Bilirubin 1.6 H AST 52 H ALT 33 Alkaline Phosphatase 114 Total Protein 5.5 L Albumin 3.1 L Triglycerides Cholesterol LDL Cholesterol Direct VLDL Cholesterol HDL Cholesterol TSH Free T4 Free T3 pg/mL 04/11/18 04/11/18 03:49 03:49 WBC RBC Hgb Hct MCV MCH MCHC RDW Plt Count Seg Neutrophils % Lymphocytes % Monocytes % Eosinophils % Basophils % Absolute Neutrophils Absolute Lymphocytes Absolute Monocytes Absolute Eosinophils Absolute Basophils Sodium 136.4 L Potassium 3.9 Chloride 103 Carbon Dioxide 22 Anion Gap 11 BUN 9 Creatinine 2.26 H Est GFR ( Amer) 26 L Est GFR (Non-Af Amer) 22 L Glucose 123 H Calcium 8.0 L Magnesium 1.7 Total Bilirubin AST ALT Alkaline Phosphatase Total Protein Albumin Triglycerides 61 Cholesterol 85.02 LDL Cholesterol Direct < 30 VLDL Cholesterol 12.2 HDL Cholesterol 76 TSH 7.70 H Free T4 2.83 H Free T3 pg/mL 3.50 04/10/18 04/10/18 04/10/18 17:39 17:39 21:06 Creatine Kinase 51 CK-MB (CK-2) 0.93 Troponin I 0.294 0.272 NT-Pro-B Natriuret Pep 04/11/18 04/11/18 04/11/18 03:49 03:49 08:56 Creatine Kinase 58 56 CK-MB (CK-2) 0.90 Troponin I 0.273 NT-Pro-B Natriuret Pep [id number] H 04/11/18 04/11/18 04/11/18 08:56 15:31 15:31 Creatine Kinase 44 CK-MB (CK-2) 1.06 0.65 Troponin I 0.262 0.214 NT-Pro-B Natriuret Pep Impressions: Chest X-Ray 04/11/18 00:00 IMPRESSION: Overlying artifact. Endotracheal and enteric tubes are in place. Mild pulmonary vascular congestion. Small left effusion. Minimal right basilar infiltrate copyright 2011 [employer]- All Rights Reserved Assessment & Plan - Diagnosis (1) Atrial fibrillation, new onset Is this a current diagnosis for this admission?: Yes Plan: Currently controlled. As per cardiology and hospitalist. (2) End stage renal disease on dialysis Is this a current diagnosis for this admission?: Yes Plan: Patient seen on dialysis. Undergoing dialysis without any issues. Plan to remove minimal amount of fluid. Dialysis orders were reviewed with the treating dialysis nurse. Since she had dialysis yesterday we will plan mainly ultrafiltration only. (3) Cardiac arrest Is this a current diagnosis for this admission?: Yes Plan: Status post intubation and sedation. (4) Acute hypoxemic respiratory failure Is this a current diagnosis for this admission?: Yes Plan: Currently intubated and sedated. (5) Anemia, chronic renal failure Plan: Adjust erythropoietin per (6) Hypertension Qualifiers: Hypertension type: essential hypertension Qualified Code(s): I10 - Essential (primary) hypertension Is this a current diagnosis for this admission?: Yes Plan: Currently hypotensive and on multiple pressors. (7) Weight loss Plan: Unexplained weight loss and emaciation.
--- NOTE | 2018-04-11 18:39 | RADIOLOGY REPORT (SQ) ---
EXAM DESCRIPTION: CHEST SINGLE VIEW COMPLETED DATE/TIME: 04/11/2018 6:30 pm REASON FOR STUDY: CENTRAL LINE PLACEMENT COMPARISON: Earlier the same day. NUMBER OF VIEWS: One view. TECHNIQUE: Single frontal radiographic image of the chest acquired. LIMITATIONS: The for overlying passed overlie the mediastinum. FINDINGS: LUNGS AND PLEURA: Stable appearance. MEDIASTINUM AND HILAR STRUCTURES: Stable heart size and mediastinal structures. HEART AND VASCULAR STRUCTURES: Stable appearance. SUPPORT DEVICES: Support lines and tubes remain in satisfactory position. A left-sided IJ line has b een added. Catheter tip overlies the SVC right atrial junction. No pneumothorax. BONES: No acute findings. OTHER: No other significant finding. IMPRESSION: Interval placement of a left-sided central line. No other interval change. No pneumoth orax. TECHNICAL DOCUMENTATION: JOB ID: [id number] [employer]- All Rights Reserved Reading location - IP/workstation name: [email or web address]
--- NOTE | 2018-04-11 18:47 | OPERATIVE REPORT E ---
Operative Report NAME: JUANJOSE DURAN : 1950 AGE: 67Y DATE OF SURGERY: 04/11/2018 ROOM: 607 PREOPERATIVE DIAGNOSIS: POOR VEINS FOR IV ACCESS AND NEEDED BILATERAL INTRAOSSEOUS TIBIAL INFUSION OF FLUIDS WHEN SHE CODED IN THE EMERGENCY DEPARTMENT THIS MORNING. SHE WAS NOTED TO BE IN ATRIAL FIBRILLATION AND ON HEPARIN, AND THE HEPARIN JUST STOPPED AND SHE JUST HAD HEMODIALYSIS. SURGEON: MARC MAYORGA M.D. DESCRIPTION OF PROCEDURE: After the patient was placed in slight Trendelenburg position the left neck was then prepped and draped in the usual sterile fashion. The patient is intubated. With the use of the ultrasound the left internal jugular vein was noted to be quite small, was then identified. Local anesthesia infiltrated on the skin along the path of the internal jugular vein. The left internal jugular vein was then punctured and a guidewire passed through the needle towards the area of the superior vena cava. The needle was removed and the puncture site dilated and a triple-lumen catheter inserted through the guidewire to a distance of about 17 cm towards the superior vena cava. All the 3 ports aspirated blood easily and instilled saline easily. The catheter was then anchored to the skin with 3-0 Silk and a Biopatch placed at the insertion site and a transparent sterile dressing placed at the Biopatch and catheter. Chest x-ray will be obtained to check for placement and to rule out any pneumothorax. DICTATING PHYSICIAN: MARC MAYORGA M.D. [id number] PHY#: [id number] ID: [id number] JOB#: [id number] ACCT: [id number] cc:MARC MAYORGA M.D. >
--- NOTE | 2018-04-11 19:34 | Progress Note ---
Provider Note Provider Note: CODE BLUE: Critical care time began 2:30 AM on 04/11/2018 Patient was noted to become somewhat catatonic by her nursing staff and this was reported to me with additional information that her heart rate was dropping and her blood pressure was also declining. Patient was observed to have progressive bradycardia and hypotension and was subsequently moved to the trauma to room in the emergency room from her previous room of the ER 16. Patient was noted to be pulseless and have severe bradycardia and was treated with ACLS techniques given epinephrine IV and chest compressions were begun. Patient was responsive to therapy and within 5 minutes had recovered her own pulse and respirations. Because she was poorly responsive she was intubated by the emergency room physician and placed on a ventilator for respiratory support. She was continued on a Levophed infusion per protocol and was started on a Versed infusion for control of her anxiety and resistance to intubation. She responded well and was maintained on ventilatory support and pressor support. She eventually required the addition of a dopamine infusion to help increase her heart rate and improve her pressor response. Arrangements were made for her to be transferred to the ICU as soon as a bed was available. Critical care time ended 6:55 AM on 04/11/2018 Total critical care time with patient was 41 minutes.
[2018-04-11 20:28] LABS: ALANINE AMINOTRANSFERASE 37 U/L (9-52); ALBUMIN 2.3 g/dL (3.5-5.0); ALKALINE PHOSPHATASE 89 U/L (38-126); ANION GAP 11 (5-19); ASPARTATE AMINO TRANSFERASE 34 U/L (14-36); BILIRUBIN,DIRECT 0.8 mg/dL (0.0-0.4); BILIRUBIN,TOTAL 1.3 mg/dL (0.2-1.3); BLOOD UREA NITROGEN 11 mg/dL (7-20); CALCIUM 8.2 mg/dL (8.4-10.2); CARBON DIOXIDE 23 mmol/L (22-30); CHLORIDE 100 mmol/L (98-107); GLUCOSE 116 mg/dL (75-110); POTASSIUM 3.3 mmol/L (3.6-5.0); SODIUM 133.5 mmol/L (137-145); TOTAL PROTEIN 4.4 g/dL (6.3-8.2)
[2018-04-11] MEDS ORDERED: POTASSIUM CHLORIDE 20 MEQ/50 ML RTU IV ONE (21:00)
--- NOTE | 2018-04-11 21:10 | EKG REPORT ---
SEVERITY:- ABNORMAL ECG - SINUS RHYTHM PAIRED VENTRICULAR PREMATURE COMPLEXES CONSIDER LEFT VENTRICULAR HYPERTROPHY ANTERIOR Q WAVES, POSSIBLY DUE TO LVH : Confirmed by: Amaya Duff 11-Apr-2018 21:10:09
[2018-04-11] MEDS: BUDESONIDE/FORMOTEROL 160-4.5 MCG 60 PUFF/6 GM MDI IH SCH (21:30)
--- NOTE | 2018-04-11 22:27 | XCELERA REPORT ---
[address] [address] Transthoracic Echocardiogram Report Name: JUANJOSE DURAN Age: 67 yrs Gender: Female : 1950 Patient Status: Inpatient Patient Location: [address] Study Date: 04/11/2018 10:22 AM Procedure: A two-dimensional transthoracic echocardiogram with color flow and Doppler was performed. Study Quality: Fair. Reason For Study: New onset atrial fibrillation History: CARDIOMYOPATHY / CARDIAC ARREST. Ordering Physician: VILMA EPPS Performed By: Nessa Figueroa Interpretation Summary The left ventricle is mildly dilated. There is normal left ventricular wall thickness. LV EF is 20% Left ventricular systolic function is severely reduced. There is severe global hypokinesis of the left ventricle. There is no thrombus. There is no ventricular septal defect visualized. The right ventricle is normal in size and function. The right atrium is normal. The left atrium is moderately dilated. The interatrial septum is intact with no evidence for an atrial septal defect. There is no Doppler evidence for an interatrial shunt There is mild to moderate mitral annular calcification. There is no evidence of mitral valve prolapse. There is no vegetation seen on the mitral valve. There is no mitral valve stenosis. There is a severe amount of mitral regurgitation There is no aortic valvular vegetation. There is no aortic valve stenosis There is aortic sclerosis without aortic stenosis. There is no LVOT obstruction. No aortic regurgitation is present. There is no tricuspid stenosis. There is a trace amount of tricuspid regurgitation Unable to calculate RVSP due lack of TR jet. There is no pulmonic valvular stenosis. There is no pulmonic valvular regurgitation. The aortic root is normal size. Small right sided pericardial effusion. MMode/2D Measurements & Calculations RVDd: 2.7 cm LVIDd: 5.0 cm FS: 11.0 % Ao root diam: 2.4 cm IVSd: 0.52 cm LVIDs: 4.4 cm EDV(Teich): Ao root area: LVPWd: 1.5 cm 116.7 ml 4.6 cm2 ESV(Teich): 88.9 ml EF(Teich): 23.8 % EDV(MOD-sp4): SV(MOD-sp4): 90.0 ml 7.3 ml ESV(MOD-sp4): 82.6 ml EF(MOD-sp4): 8.1 % Doppler Measurements & Calculations MV E max janny: MV dec slope: Ao V2 max: LV V1 max P.1 cm/sec 554.0 cm/sec2 95.1 cm/sec 2.4 mmHg MV A max janny: MV dec time: 0.15 sec Ao max PG: LV V1 max: 76.6 cm/sec 3.6 mmHg 77.0 cm/sec MV E/A: 1.1 LV dP/dt: 779.2 mmHg/s PA V2 max: 82.8 cm/sec PA max P.7 mmHg Left Ventricle The left ventricle is mildly dilated. There is normal left ventricular wall thickness. LV EF is 20%. Left ventricular systolic function is severely reduced. There is severe global hypokinesis of the left ventricle. There is no thrombus. There is no ventricular septal defect visualized. Right Ventricle The right ventricle is normal in size and function. Atria The right atrium is normal. The left atrium is moderately dilated. The interatrial septum is intact with no evidence for an atrial septal defect. There is no Doppler evidence for an interatrial shunt. Mitral Valve There is mild to moderate mitral annular calcification. There is no evidence of mitral valve prolapse. There is no vegetation seen on the mitral valve. There is no mitral valve stenosis. There is a severe amount of mitral regurgitation. Aortic Valve There is no aortic valvular vegetation. There is no aortic valve stenosis. There is aortic sclerosis without aortic stenosis. There is no LVOT obstruction. No aortic regurgitation is present. Tricuspid Valve There is no tricuspid stenosis. There is a trace amount of tricuspid regurgitation. Unable to calculate RVSP due lack of TR jet. Pulmonic Valve There is no pulmonic valvular stenosis. There is no pulmonic valvular regurgitation. Great Vessels The aortic root is normal size. Effusions Small right sided pericardial effusion. : VILMA EPPS > Mare Joseph
[2018-04-12] MEDS: DILTIAZEM HCL 90 MG TABLET PO SCH ×2 (01:52→05:07)
[2018-04-12 04:58] LABS: ABSOLUTE LYMPHOCYTES (AUTO) 0.7 10^3/uL (0.5-4.7); ABSOLUTE MONOCYTES (AUTO) 0.4 10^3/uL (0.1-1.4); ABSOLUTE NEUT (AUTO) 5.8 10^3/uL (1.7-8.2); BASOPHILS % (AUTO) 0.2 % (0-2); HEMATOCRIT 30.2 % (36.0-47.0); HEMOGLOBIN 10.3 g/dL (12.0-15.5); LYMPHOCYTES % (AUTO) 9.4 % (13-45); MEAN CORPUSCULAR HGB CONC 34.3 g/dL (32.0-36.0); MEAN CORPUSCULAR VOLUME 90 fl (80-97); MONOCYTES % (AUTO) 6.4 % (3-13); PLATELET COUNT 120 10^3/uL (150-450); RED BLOOD COUNT 3.34 10^6/uL (3.72-5.28); RED CELL DISTRIBUTION WIDTH 21.8 % (11.5-14.0); TOTAL CELLS COUNTED % (AUTO) 100 %
[2018-04-12] MEDS: LANSOPRAZOLE 30 MG TAB.RAP.DR PO SCH (05:07)
[2018-04-12 05:20] LABS: ANION GAP 10 (5-19); BLOOD UREA NITROGEN 12 mg/dL (7-20); CALCIUM 8.4 mg/dL (8.4-10.2); CARBON DIOXIDE 23 mmol/L (22-30); CHLORIDE 102 mmol/L (98-107); GLUCOSE 121 mg/dL (75-110); SODIUM 134.5 mmol/L (137-145)
[2018-04-12 05:38] LABS: POTASSIUM 4.2 mmol/L (3.6-5.0)
[2018-04-12] MEDS: MIDAZOLAM HCL 50 MG/100 ML RTUINJ IV PRN (11:31)
[2018-04-12] MEDS: GUAIFENESIN 600 MG TABLET.SA PO SCH (11:33)
[2018-04-12] MEDS: DOCUSATE SODIUM 100 MG CAPSULE PO SCH (11:33)
[2018-04-12] MEDS: METOPROLOL SUCCINATE 50 MG TAB.SR.24H PO SCH (11:34)
[2018-04-12] MEDS: TIOTROPIUM BROMIDE DPI 5 CAP/KIT (18 MCG/CAP) IH SCH (11:34)
[2018-04-12] MEDS: BUDESONIDE/FORMOTEROL 160-4.5 MCG 60 PUFF/6 GM MDI IH SCH (11:34)
[2018-04-12] MEDS: APIXABAN 2.5 MG TABLET PO SCH (11:35)
--- NOTE | 2018-04-12 12:47 | PDOC PROGRESS REPORT ---
Subjective Progress Note for:: 04/12/18 Reason For Visit: Patient seen today in the ICU. She remains intubated and sedated. She is on multiple pressors. She is currently in sinus. Labs and medications were reviewed. Discussions were done with the treating nurse. Physical Exam Vital Signs: Temp Pulse Resp BP Pulse Ox 100.8 F H 76 33 H 108/74 92 04/12/18 12:00 04/12/18 12:00 04/12/18 12:00 04/12/18 12:00 04/12/18 12:00 Intake & Output 04/11/18 04/12/18 04/13/18 06:59 06:59 06:59 Intake Total 9 843 177 Output Total 587 10 Balance 9 256 167 Weight 51.5 kg 51 kg Exam: Remains intubated and sedated. Respiratory exam: PRESENT: clear to auscultation stella, decreased breath sounds. ABSENT: crackles Cardiovascular exam: PRESENT: +S1, +S2 GI/Abdominal exam: PRESENT: normal bowel sounds, soft. ABSENT: organomegaly, tenderness Extremities exam: ABSENT: pedal edema Results Laboratory Results: 04/12/18 04:50 04/12/18 04:50 04/11/18 04/12/18 04/12/18 19:52 04:50 04:50 WBC 7.0 RBC 3.34 L Hgb 10.3 L Hct 30.2 L MCV 90 MCH 31.0 MCHC 34.3 RDW 21.8 H Plt Count 120 L Seg Neutrophils % 84.0 H Lymphocytes % 9.4 L Monocytes % 6.4 Eosinophils % 0.0 Basophils % 0.2 Absolute Neutrophils 5.8 Absolute Lymphocytes 0.7 Absolute Monocytes 0.4 Absolute Eosinophils 0.0 Absolute Basophils 0.0 Sodium 133.5 L 134.5 L Potassium 3.3 L 4.2 Chloride 100 102 Carbon Dioxide 23 23 Anion Gap 11 10 BUN 11 12 Creatinine 2.63 H 2.86 H Est GFR ( Amer) 22 L 20 L Est GFR (Non-Af Amer) 18 L 16 L Glucose 116 H 121 H Calcium 8.2 L 8.4 Magnesium 1.7 Total Bilirubin 1.3 AST 34 ALT 37 Alkaline Phosphatase 89 Total Protein 4.4 L Albumin 2.3 L 04/10/18 04/10/18 04/10/18 17:39 17:39 21:06 Creatine Kinase 51 CK-MB (CK-2) 0.93 Troponin I 0.294 0.272 NT-Pro-B Natriuret Pep 04/11/18 04/11/18 04/11/18 03:49 03:49 08:56 Creatine Kinase 58 56 CK-MB (CK-2) 0.90 Troponin I 0.273 NT-Pro-B Natriuret Pep [id number] H 04/11/18 04/11/18 04/11/18 08:56 15:31 15:31 Creatine Kinase 44 CK-MB (CK-2) 1.06 0.65 Troponin I 0.262 0.214 NT-Pro-B Natriuret Pep Impressions: Chest X-Ray 04/11/18 00:00 IMPRESSION: Interval placement of a left-sided central line. No other interval change. No pneumothorax. Assessment & Plan - Diagnosis (1) Atrial fibrillation, new onset Is this a current diagnosis for this admission?: Yes Plan: Currently rate controlled. As per hospitalist and cardiology. (2) End stage renal disease on dialysis Is this a current diagnosis for this admission?: Yes Plan: Plan for dialysis in the morning. Orders have been placed. (3) Cardiac arrest Is this a current diagnosis for this admission?: Yes Plan: Currently in respiratory failure and intubated and sedated. (4) Acute hypoxemic respiratory failure Is this a current diagnosis for this admission?: Yes Plan: On the vent. Intubated and sedated. (5) Anemia, chronic renal failure Plan: Stable hemoglobin. Will monitor. (6) Hypertension Qualifiers: Hypertension type: essential hypertension Qualified Code(s): I10 - Essential (primary) hypertension Is this a current diagnosis for this admission?: Yes Plan: Currently hypotensive on pressors. Off all antihypertensives.Pump failure versus others. (7) Weight loss Plan: Unexplained significant weight loss and emaciation over the last 1-2 months. (8) Systolic congestive heart failure Plan: Significantly reduced LV ejection fraction of approximately 20% with global hypokinesia. Severe mitral incompetence. Being managed and evaluated by cardiology.
[2018-04-12] MEDS ORDERED: PHENYLEPHRINE HCL INJ/PF 10 MG/1 ML SDV ONE (12:48)
[2018-04-12] MEDS ORDERED: VASOPRESSIN INJ 20 UNIT/1 ML VIAL ONE (13:01)
[2018-04-12 13:32] LABS: HEMOGLOBIN 10.2 g/dL (12.0-15.5); RED CELL DISTRIBUTION WIDTH 22.3 % (11.5-14.0)
[2018-04-12 13:45] LABS: HEMATOCRIT 31.6 % (36.0-47.0); MEAN CORPUSCULAR HEMOGLOBIN 30.5 pg (27.0-33.4); MEAN CORPUSCULAR HGB CONC 32.4 g/dL (32.0-36.0); PLATELET COUNT 109 10^3/uL (150-450); RED BLOOD COUNT 3.36 10^6/uL (3.72-5.28); WHITE BLOOD COUNT 7.2 10^3/uL (4.0-10.5)
[2018-04-12] MEDS ORDERED: DEXTROSE 5%-WATER 250 ML with PHENYLEPHRINE HCL 40 MG IV PRN ×2 (13:46)
[2018-04-12] MEDS ORDERED: DEXTROSE 5%-WATER 250 ML with VASOPRESSIN 100 UNIT IV PRN ×2 (13:47)
[2018-04-12] MEDS: DEXTROSE 5%-WATER 250 ML with NOREPINEPHRINE BITARTRATE 4 MG IV PRN ×4 (13:51→14:22)
[2018-04-12 13:52] LABS: ANION GAP 17 (5-19); BLOOD UREA NITROGEN 12 mg/dL (7-20); CALCIUM 8.6 mg/dL (8.4-10.2); CARBON DIOXIDE 16 mmol/L (22-30); CHLORIDE 100 mmol/L (98-107); GLUCOSE 153 mg/dL (75-110); SODIUM 133.4 mmol/L (137-145)
[2018-04-12 14:02] LABS: POTASSIUM 5.5 mmol/L (3.6-5.0)
[2018-04-12 14:05] LABS: MEAN CORPUSCULAR VOLUME 94 fl (80-97)
[2018-04-12 14:11] LABS: ARTERIAL BLOOD BASE EXCESS -17.4 mmol/L; ARTERIAL BLOOD H2CO3 1.15 mmol/L (1.05-1.35); ARTERIAL BLOOD HCO3 11.3 mmol/L (20-24); ARTERIAL BLOOD O2 SATURATION 99.7 % (94-98); ARTERIAL BLOOD PCO2 38.2 mmHg (35-45); ARTERIAL BLOOD PO2 410.1 mmHg (80-100); ARTERIAL BLOOD TOTAL CO2 12.4 mmol/L (21-25)
[2018-04-12 14:14] LABS: ARTERIAL BLOOD FIO2 100%
[2018-04-12 14:15] LABS: ARTERIAL BLOOD PH 7.09 (7.35-7.45)
[2018-04-12] MEDS ORDERED: MORPHINE SULFATE 10 MG/ML INJ IV PRN (15:48)
--- NOTE | 2018-04-12 16:10 | PDOC PROGRESS REPORT ---
Subjective Progress Note for:: 04/12/18 Subjective:: Was called to the bedside as the patient's blood pressure dropped precipitously. She was also having irregular heartbeat. Reason For Visit: NEW ONSET AFIB WITH RVR Physical Exam Vital Signs: Temp Pulse Resp BP Pulse Ox 98.8 F 76 22 H 135/106 H 75 L 04/12/18 14:35 04/12/18 12:00 04/12/18 14:35 04/12/18 14:35 04/12/18 14:14 Intake & Output 04/11/18 04/12/18 04/13/18 06:59 06:59 06:59 Intake Total 9 843 411 Output Total 587 10 Balance 9 256 401 Weight 51.5 kg 51 kg General appearance: PRESENT: no acute distress Exam: The patient was unresponsive to painful stimulus. No spontaneous movements noted. Eye exam: PRESENT: other - Right pupil is fixed and dilated. There was no response with conjunctival irritation. The left pupil was minimally responsive to light. Ear exam: PRESENT: normal external ear exam Mouth exam: PRESENT: other - Endotracheal tube in place Teeth exam: PRESENT: other - Unable to examine Throat exam: PRESENT: other - Unable to examine Respiratory exam: PRESENT: decreased breath sounds, other - Respiratory rate dependent on ventilator. ABSENT: stridor, wheezes Cardiovascular exam: PRESENT: irregular rhythm - Varied between bigeminy, fibrillation and PVCs were noted. Pulses: PRESENT: other - Finger and toes were quite cold due to marked use of v asopressors. There was very sluggish capillary refill. Vascular exam: PRESENT: pallor GI/Abdominal exam: PRESENT: diminished bowel sounds, soft. ABSENT: tenderness Rectal exam: PRESENT: deferred Gentrourinary exam: PRESENT: indwelling catheter - Barely a trace of urine in the Lama collection bag Extremities exam: ABSENT: pedal edema Neurological exam: PRESENT: other - Sedated Psychiatric exam: PRESENT: other - Sedated Focused psych exam: PRESENT: other - Completely unresponsive Results Laboratory Results: 04/12/18 13:00 04/12/18 13:00 04/11/18 04/12/18 04/12/18 19:52 04:50 04:50 WBC 7.0 RBC 3.34 L Hgb 10.3 L Hct 30.2 L MCV 90 MCH 31.0 MCHC 34.3 RDW 21.8 H Plt Count 120 L Seg Neutrophils % 84.0 H Lymphocytes % 9.4 L Monocytes % 6.4 Eosinophils % 0.0 Basophils % 0.2 Absolute Neutrophils 5.8 Absolute Lymphocytes 0.7 Absolute Monocytes 0.4 Absolute Eosinophils 0.0 Absolute Basophils 0.0 Carbonic Acid HCO3/H2CO3 Ratio ABG pH ABG pCO2 ABG pO2 ABG HCO3 ABG O2 Saturation ABG Base Excess FiO2 Sodium 133.5 L 134.5 L Potassium 3.3 L 4.2 Chloride 100 102 Carbon Dioxide 23 23 Anion Gap 11 10 BUN 11 12 Creatinine 2.63 H 2.86 H Est GFR ( Amer) 22 L 20 L Est GFR (Non-Af Amer) 18 L 16 L Glucose 116 H 121 H Calcium 8.2 L 8.4 Magnesium 1.7 Total Bilirubin 1.3 AST 34 ALT 37 Alkaline Phosphatase 89 Total Protein 4.4 L Albumin 2.3 L 04/12/18 04/12/18 04/12/18 13:00 13:00 14:05 WBC 7.2 RBC 3.36 L Hgb 10.2 L Hct 31.6 L MCV 94 D MCH 30.5 MCHC 32.4 RDW 22.3 H Plt Count 109 L Seg Neutrophils % Lymphocytes % Monocytes % Eosinophils % Basophils % Absolute Neutrophils Absolute Lymphocytes Absolute Monocytes Absolute Eosinophils Absolute Basophils Carbonic Acid 1.15 HCO3/H2CO3 Ratio 9:1 ABG pH 7.09 L* ABG pCO2 38.2 ABG pO2 410.1 H ABG HCO3 11.3 L ABG O2 Saturation 99.7 H ABG Base Excess -17.4 FiO2 100% Sodium 133.4 L Potassium 5.5 H D Chloride 100 Carbon Dioxide 16 L Anion Gap 17 BUN 12 Creatinine 3.33 H Est GFR ( Amer) 17 L Est GFR (Non-Af Amer) 14 L Glucose 153 H Calcium 8.6 Magnesium 2.0 Total Bilirubin AST ALT Alkaline Phosphatase Total Protein Albumin 04/10/18 04/10/18 04/10/18 17:39 17:39 21:06 Creatine Kinase 51 CK-MB (CK-2) 0.93 Troponin I 0.294 0.272 NT-Pro-B Natriuret Pep 04/11/18 04/11/18 04/11/18 03:49 03:49 08:56 Creatine Kinase 58 56 CK-MB (CK-2) 0.90 Troponin I 0.273 NT-Pro-B Natriuret Pep [id number] H 04/11/18 04/11/18 04/11/18 08:56 15:31 15:31 Creatine Kinase 44 CK-MB (CK-2) 1.06 0.65 Troponin I 0.262 0.214 NT-Pro-B Natriuret Pep 04/12/18 13:19 Creatine Kinase CK-MB (CK-2) Troponin I 0.164 NT-Pro-B Natriuret Pep Impressions: Chest X-Ray 04/11/18 00:00 IMPRESSION: Interval placement of a left-sided central line. No other interval change. No pneumothorax. Assessment & Plan - Diagnosis (1) Cardiogenic shock Is this a current diagnosis for this admission?: Yes Plan: At approximately 1220 I was notified that the patient's blood pressure was decreasing significantly despite dopamine and levo fed. The systolic pressure dropped as low as 47. It is difficult to palpate pulses. An ultrasound was necessary. After reviewing with Dr. Joseph a Evelio-Synephrine infusion was started. There was no obvious benefit and so vasopressin was added. The levo fed, vasopressin, dopamine and Evelio-Synephrine were all at the maximum doses. The blood pressure did vary but the systolic pressure remained below 100 varying from the 60s to the 80s. Blood work was requested. At this point the patient was on 100% FiO2. At this point I did reach out and contacted the patient's significant other (Benedicto) to update him on the significant clinical change. On 100% FiO2 her pH was 7.09 with a PCO2 of 38.1, PO2 was 400 and the bicarb was 11.3. Serum sodium was 133 with a potassium of 5.5 chloride 100 CO2 16 BUN is 12 and creatinine was 3.33. Glucose was 153. With poor response to 4 vasopressors I did give a 1 L fluid bolus. This did not seem to have a significant effect. Pulses were still barely palpable. Almost completely absent capillary refill in the feet and fingers. Bigeminy was noted on telemetry strips. The patient continued to show no sign of recovery. Examination again revealed barely palpable femoral pulses. Doppler was again used to confirm pulses. The right pupil became fixed and dilated. There was no conjunctival response to direct stimulation. Left pupil was very sluggish. There were no spontaneous eye movements. I again reached out to Benedicto and updated him. I told him that in my opinion the patient would not survive this episode. At this point she was still a full code. I did ask him to consider changing the CODE STATUS. The patient told me that he would have to reach out to the patient's brother in [place] and he was going to have him call me. During this time the patient was critical with minimal response to vasopressors and a bolus of IV saline. Neuro exam remained unchanged. At that point the patient's brother (Erickson) called from [facility]. I provided a detailed report of the patient's hospital course starting with her admission and cardiac arrest through the consistent decline despite aggressive measures in the ICU. At this point the patient's brother did understand her terminal prognosis. Armed with this information he was going to call Benedicto back. He stated that he would agree with any decision that Benedicto would make. Shortly thereafter he did receive a call from Benedicto. He did have a chance to talk to Erickson. I reviewed the reasons that I felt the patient would not survive regardless of any effort and the patient did agree to withdraw aggressive support and provide comfort only. At this point I discontinued all medications except for Tylenol and morphine. Morphine for any perceived pain, agitation or air hunger. I ordered terminal extubation of the patient as well. Total critical care time was 65 minutes. (2) Cardiac arrest Is this a current diagnosis for this admission?: Yes (3) Non-STEMI (non-ST elevated myocardial infarction) Is this a current diagnosis for this admission?: Yes (4) Atrial fibrillation, new onset Is this a current diagnosis for this admission?: Yes (5) Renal failure, chronic Qualifiers: Chronic kidney disease stage: unspecified stage Qualified Code(s): N18.9 - Chronic kidney disease, unspecified Is this a current diagnosis for this admission?: Yes (6) Acute hypoxemic respiratory failure Is this a current diagnosis for this admission?: Yes - Time Time Spent with patient: 35 or more minutes - 65 minutes in total Medications reviewed and adjusted accordingly: Yes Anticipated discharge: Other
[2018-04-12 16:18] VITALS: BP 94/53
--- NOTE | 2018-04-12 20:38 | Physician Advisory Note ---
Physician Advisor ProgressNote .: Pursuant to the plan for Jaime Pack, I have reviewed the medical record for this patient. Physician Advisor Statement: Nice documentation of cardiogenic shock needing 3 pressors in addition to IVF, cardiac arrest. ED nurse documetned severe SOB w/associated agitation, then unresponsiveness, then cardiac arrest, along with hypoxemia into the 70s. Please also consider documenting, if you agree: 1. "chronic systolic CHF w/EF 20% & severe MR" vs "Acute on Chronic systolic CHF w/EF 20% & severe MR", or ... 2. "ESRD on HD" vs what stage of CKD? 3. "COPD exacerbation", vs this was ruled out after admission? 4. evidence for Acute Respiratory Failure , besides cardiac arrest 5. "NSTEMI, suspect of ___ wall/artery (vs unknown)", vs was this ruled out & pt had "elevated trop I's due to " ...? 6. Likely cause of the bradycardia in ED Thanks! CK
--- NOTE | 2018-04-17 11:50 | Death Summary ---
Summary Date : 04/12/18 Time of :: 17:20 Autopsy: No Resuscitation Status: Comfort Measures Only - Final Diagnosis (1) Cardiogenic shock Is this a current diagnosis for this admission?: Yes (2) Cardiac arrest Is this a current diagnosis for this admission?: Yes (3) Non-STEMI (non-ST elevated myocardial infarction) Is this a current diagnosis for this admission?: Yes (4) Atrial fibrillation, new onset Is this a current diagnosis for this admission?: Yes (5) Renal failure, chronic Is this a current diagnosis for this admission?: Yes (6) Acute hypoxemic respiratory failure Is this a current diagnosis for this admission?: Yes Hospital Course:: Mrs. Harris was a 67-year-old female with a complex past medical history. She had end-stage kidney disease and was on hemodialysis. She has history of congestive heart failure with a depressed ejection fraction. She was known to be noncompliant at times with her care. She presented to the emergency department due to generalized feeling of decline with fatigue and malaise. She was found to be in atrial fibrillation. She was admitted to the hospitalist service with nephrology consulting. Within several hours the patient experienced cardiac arrest. She was intubated and successfully resuscitated however she exhibited cardiogenic shock. She was on 4 vasopressors to try to maintain blood pressure. She required fluid despite her underlying end-stage kidney disease. There was no evidence of infection. The patient was admitted to the intensive care unit. Aggressive care was initiated. Hemodialysis was performed on April 11. There was no improvement in the patient's clinical condition. An echocardiogram was performed and this revealed an ejection fraction of 20%. The clinical exam on April 12 revealed a fixed and dilated right pupil with a sluggish left pupil. The patient still required maximal vasopressor support. She remained intubated and dependent on mechanical ventilation. Her significant other, Benedicto, was very supportive. After 48 hours I discussed the current situation and futility of our efforts. Mrs. Harris's brother called me from [facility]. I reviewed the same with him. He and Benedicto had a chance to speak on the phone and then Benedicto call me back. Because of the terminal prognosis Benedicto, in conjunction with the patient's brother, agreed to changing the patient's status to comfort measures only. With that all aggressive measures and medications were withdrawn except those that would provide comfort. The patient was extubated. The patient s ubsequently several hours later.
== END 2018-04-12 18:10 | disposition expired ==
LOC: ER 17:07 → INTOOBSV 21:40 → OBSVTOIN 21:40 → EH 21:40 → ICU 04-11 12:17
PROVIDERS: ADMIT Emergency Medicine; ATTEND Emergency Medicine
PROC: 5A1945Z Respiratory Ventilation, 24-96 Consecutive Hours (ICD-10-PCS; principal; 2018-04-11)
PROC: 0BH17EZ Insertion of Endotracheal Airway into Trachea, Via Natural or Artificial Opening (ICD-10-PCS; 2018-04-11)
PROC: 02HV33Z Insertion of Infusion Device into Superior Vena Cava, Percutaneous Approach (ICD-10-PCS; 2018-04-11)
PROC: 5A12012 Performance of Cardiac Output, Single, Manual (ICD-10-PCS; 2018-04-11)
DX: I48.91 Unspecified atrial fibrillation (principal); I21.4 Non-ST elevation (NSTEMI) myocardial infarction; N18.6 End stage renal disease; J96.01 Acute respiratory failure with hypoxia; I13.2 Hypertensive heart and chronic kidney disease with heart failure and with stage 5 chronic kidney disease, or end stage renal disease; J44.1 Chronic obstructive pulmonary disease with (acute) exacerbation; R64 Cachexia; I50.20 Unspecified systolic (congestive) heart failure; Z99.2 Dependence on renal dialysis; Z51.5 Encounter for palliative care; R57.0 Cardiogenic shock; I46.9 Cardiac arrest, cause unspecified; M19.90 Unspecified osteoarthritis, unspecified site; D63.1 Anemia in chronic kidney disease; I49.3 Ventricular premature depolarization; Z87.891 Personal history of nicotine dependence; Z82.49 Family history of ischemic heart disease and other diseases of the circulatory system; Z84.1 Family history of disorders of kidney and ureter; Z88.6 Allergy status to analgesic agent; Z88.0 Allergy status to penicillin; Z88.8 Allergy status to other drugs, medicaments and biological substances
CPT/HCPCS: 36415; 71045; 80048; 80053; 80061; 82550; 82553; 82803; 82962; 83036; 83735; 83880; 84439; 84443; 84481; 84484; 85025; 85027; 85610; 85730; 92950; 93005; 93010; 93306; 94002; 94003; 96374; 96375; 96376; 99291; 99292; C1751; J0171; J0461; J1265; J1644; J2250; J2270; J2370; J3480; J3490; J7060